=== PATIENT | female | born 1970 | race Caucasian/White ===

== ENCOUNTER 2023-06-26 10:52 | Outpatient (OUT) | payer OTHER, SELFPAY ==
--- NOTE | 2023-06-26 10:56 | MM_ITS ---
Patient: SHARYN BARRY Exam Date: 06/26/2023 : 1970 Gender:F Ordering : DR. ELISABET MARTINEZ . Admission #: [id number] Family : Order #: [id number] CLICK HERE TO VIEW EXAM RADIOLOGY REPORT PROCEDURE: MM TOMOSYNTHESIS SCREENING BI COMPARISON: MG MAMM SCREEN 3D ALFONSO CAD, 08/29/2021. MG MAMM SCREEN ALFONSO W CAD, 08/23/2020. MG MAMM ALFONSO SCRN W CAD DIG, 05/07/2013. MG MAMM SCREEN 3D ALFONSO CAD, 06/20/2022. INDICATIONS: Screening Calculator Name NCI Breast Cancer Risk Assessment Tool 5 Year Breast Cancer Risk 2.50% Lifetime Breast Cancer Risk 17.20% Personal Breast Cancer No Personal Ovarian Cancer No Treatments None Family Cancers Mother with breast cancer at age 74. LOCATION: [facility] BREAST COMPOSITION: Scattered areas fibroglandular density. FINDINGS: DIAGNOSTIC CATEGORY 1--NEGATIVE. RIGHT BREAST: No significant suspicious finding. No significant change has occurred. LEFT BREAST: No significant suspicious finding. No significant change has occurred. RECOMMENDATIONS: ROUTINE MAMMOGRAM AND CLINICAL EVALUATION IN 12 MONTHS. PLEASE NOTE: A NORMAL MAMMOGRAM DOES NOT EXCLUDE THE POSSIBILITY OF BREAST CANCER. A CLINICALLY SUSPICIOUS PALPABLE LUMP SHOULD BE BIOPSIED. Dictated by: Jorge Gee M.D. on 06/27/2023 at 13:42 Approved by: Jorge Gee M.D. on 06/27/2023 at 13:44
== END 2023-06-26 10:53 | disposition home or self-care (01) ==
LOC: MAMMO 10:52
PROVIDERS: PCP Family Medicine; Visit Provider Family Medicine
DX: Z12.31 Encounter for screening mammogram for malignant neoplasm of breast (principal); Z80.3 Family history of malignant neoplasm of breast
CPT/HCPCS: 77063; 77067

== ENCOUNTER 2023-07-19 12:51 | Outpatient (OUT) | payer OTHER, SELFPAY | END 2023-07-19 12:52 | disposition home or self-care (01) | LOC: VC 12:52 | PROVIDERS: PCP Radiology Diagnostic Radiology; Visit Provider Radiology Diagnostic Radiology | DX: I83.813 Varicose veins of bilateral lower extremities with pain (principal) ==

== ENCOUNTER 2023-08-01 12:53 | Outpatient (OUT) | payer OTHER, SELFPAY ==
--- NOTE | 2023-08-01 12:55 | VEIN_ITS ---
Patient Name: SHARYN BARRY MR#: [id number] : 1970 Exam Date: 08/01/2023 Ordering Doctor: DR ELVIS GO M.D. RADIOLOGY REPORT PROCEDURE: [facility] FACILITY EST COMPREHENSIVE VEIN CENTER - OFFICE VISIT INITIAL COMPARISON: None. PROGRESS NOTES: [age] year old female who presents with a 5 year history of bulging dilated veins, leg pain and swelling, cramping. The patient's right leg symptoms are worse than the left. There has been a progression of symptoms over time. This increases with prolonged leg dependency. The patient describes an improvement with rest, elevation, exercise, support stockings. The patient denies any signs and symptoms to suggest arterial ischemia. The patient describes a family history varicose veins on maternal side. The patient has drinking and smoking history of : Occasional alcohol consumption; no tobacco use. Patient has a past medical history significant for hypertension. The patient denies a history of deep venous thrombus or pulmonary embolus. See separate history and physical for medication list. No prior treatment for varicose or spider veins. Current use of compression stockings. After review of nurse notes, history and physical exam I discussed at length the pathophysiology of venous hypertension and possible treatments, therapies and strategies available. We discussed at length the importance of elevating the lower extremities above the level of the heart, increased physical activity and compression stocking use. Ultrasound venous reflux study performed today was discussed at length with the patient. The report demonstrates abnormally dilated and incompetent great saphenous vein bilaterally with prominent branch saphenous varicosities; right greater than left.. PHYSICAL EXAM: The right leg demonstrates several prominent varicosities, a few scattered spider veins, no ulceration, mild edema, no skin discoloration. The left leg demonstrates a few small varicosities, a few scattered spider veins, no ulceration, mild edema, no skin discoloration. Both thighs, legs and feet were symmetrically warm to the touch. Good posterior tibial and dorsalis pedis pulses were present bilaterally. VEIN/[facility] Facility EST Comprehensive IMPRESSION: 1. Right greater than left lower extremity venous insufficiency 2. Right greater than left lower extremity varicose veins 3. Mild bilateral lower extremity subcutaneous edema 4. No flow significant arterial disease 5. CEAP: C3, EC, , AR PLAN: 1. Continued use of compression stockings 2. Elevated legs and increased physical activity symptomatic relief 3. Endovenous laser ablation of right great saphenous vein. 4. Microfoam chemical ablation of right leg dilated branch saphenous varicosities. 5. Lower extremity sclerotherapy. Nurse notes, history and physical were reviewed and confirmed, see attached forms. The nurse was present throughout the physical exam and consultation Dictated by: Jorge Gee M.D. on 08/01/2023 at 14:45 Approved by: Jorge Gee M.D. on 08/01/2023 at 14:48
--- NOTE | 2023-08-01 12:55 | VEIN_ITS ---
Patient Name: SHARYN BARRY MR#: [id number] : 1970 Exam Date: 08/01/2023 Ordering Doctor: DR ELVIS GO M.D. RADIOLOGY REPORT PROCEDURE: VC EXT VENOUS REFLUX ALFONSO LMTD COMPARISON: None. INDICATIONS: I83.813 Painful varicose veins of bilat lower extremities TECHNIQUE: Duplex imaging of the lower extremity to assess the deep and superficial venous system for the presence of deep or superficial venous incompetence and to document the location and severity of disease. The study includes evaluation of the great saphenous vein (GSV), anterior accessory saphenous vein (AASV) and small saphenous vein (SSV). Patient scanned in reverse Trendelenburg and standing. FINDINGS: RIGHT LOWER EXTREMITY: Saphenofemoral Junction Reflux: Yes 7.8mm 2.9 sec GSV: Diam (mm) Reflux/ Time (sec) Proximal Thigh 6.5 Yes 0.9 Mid Thigh 5.3 Yes 2.1 Distal Thigh 4.6 Yes 1.5 Prox Calf 2.7 Yes 0.6 Mid Calf 2.5 Yes 0.4 Saphenopopliteal Junction Reflux: 3.6mm No SSV: Proximal Calf 2.7 No Mid Calf 2.1 No AASV: Proximal Thigh 4.8 Yes 0.5 Mid Thigh Distal Thigh Thrombi: No acute or chronic thrombus visualized Compressibility: Normal Flow: Normal Preforator: Dist/med calf 2.3mm with 1.0s reflux. Mid/med calf 2.9mm with 0s reflux. Tech Note: Incompetent GSV. Patent varicose vein prox/med calf 2.7mm with 0.5s. Patent prox/med calf thigh 4.9mm with 1.0s reflux. LEFT LOWER EXTREMITY: Saphenofemoral Junction Reflux: Yes 6.6 mm 0.9 sec GSV: Diam (mm) Reflux/Time (sec) Proximal Thigh 6.8 Yes 0.8 Mid Thigh 4.5 Yes 0.6 Distal Thigh 2.7 No Prox Calf 3.4 No Mid Calf 2.4 No Saphenopopliteal Junction Relux: 3.0 mm No SSV: Proximal Calf 1.6 Yes 0.4 Mid Calf 2.1 No AASV: Proximal Thigh 4.7 Yes 0.6 Mid Thigh 3.2 Yes 0.5 Distal Thigh Thrombi: No acute or chronic thrombus visualized Compressibility: Normal Flow: Normal [employer]: No patent perforators visualized. Tech Note: Incompetent GSV. Patent varicose vein mid/med calf 3.3mm with 0.8s reflux. Patent varicose vein medial knee 2.3mm with 0.4s reflux. Patent varicose vein 4.5mm with 0.6s reflux. CONCLUSION: 1. Abnormally dilated and incompetent right great saphenous and left great saphenous veins with bilateral dilated incompetent branch saphenous varicosities; right greater than left. Dictated by: Jorge Gee M.D. on 08/01/2023 at 13:55 Approved by: Jorge Gee M.D. on 08/01/2023 at 14:44
== END 2023-08-01 12:54 | disposition home or self-care (01) ==
LOC: VC 12:53
PROVIDERS: PCP Radiology Diagnostic Radiology; Visit Provider Radiology Diagnostic Radiology
DX: I83.813 Varicose veins of bilateral lower extremities with pain (principal)
CPT/HCPCS: 93970; G0463

== ENCOUNTER 2023-08-07 13:49 | Outpatient (OUT) | payer OTHER, SELFPAY ==
--- NOTE | 2023-08-07 13:55 | VEIN_ITS ---
The [address] [address] Patient Name: SHARYN BARRY MRN: [id number] date: 1970 Sex: F Assigned Patient Location: Current Patient Location: Accession/Order Number: [id number] Exam Date: 08/07/2023 14:00 Report Date: 08/07/2023 15:32 At the request of: ELVIS GO Procedure: VC Endovenous Ablation 1VeinRT EXAMINATION: VC Endovenous Ablation 1VeinRT HISTORY: Painful varicose veins of bilat legs I83.813 The risks and benefits of the procedure had been previously discussed, and were rediscussed at length. Informed written consent was obtained. Robert Sanchez RN and Dina Albarado RDMS, RVT assisted. Time out procedure was performed. The right lower extremity was prepared and draped in the usual sterile fashion to allow knee flexion in the sterile field. Duplex ultrasound probe was draped in a sterile cover, sterile transmission gel was used. Venous mapping was performed with the areas of dilation and large tributaries marked. The total length was 36 cm from the entry upper calf to 3 cm below the Saphenofemoral junction. The diameter of the right great saphenous vein ranged from 6.5 mm. A 30 gauge needle and 1% buffered lidocaine was used to anesthetize the entry site. A 4 mm incision was made with a scalpel and the saphenous vein was entered percutaneously under direct ultrasound guidance with a micropuncture set, a single stick was successful in gaining access. A micro-guide wire was inserted and the needle removed. A micro-set including a dilator was inserted over the microwire and the needle and dilator were removed. A guide wire was inserted through the micro-set and guided through the saphenous vein to the saphenofemoral junction. The dilator was removed and an introducer sheath was inserted over the wire until the end of the sheath entered the saphenofemoral junction. The dilator and wire were removed and the 600 micron fiber was introduced and placed and positioned so that it extended beyond the sheath and was 3 cm distal to the saphenofemoral or saphenopopliteal junction. Final position of the fiber was determined by ultrasound guidance and duplex imaging. Tumescent anesthetic was delivered by ultrasound guidance. 175 cc of fluid was delivered along the entire course of the saphenous vein. The solution consisted of 1000 cc of normal saline with 40 mL of 1% lidocaine and 20 mL of sodium bicarbonate. A final positioning check was made. The energy source was turned on by means of the foot pedal and the fiber and sheath were withdrawn. The total number of Joules delivered was 2084. The laser was active for 261 seconds under continuous pulse, average laser use of 8 J. Laser start time 2:45 PM, 08/07/2023. Laser stop time 2:51 PM, 08/07/2023. A duplex ultrasound revealed compressibility and flow at the saphenofemoral junction immediately after the procedure. Hemostasis at the access site was achieved. The skin incision of the saphenous vein was closed with a 4 x 4. A compression stocking was applied. Postop instructions were given. A follow up appointment was recommended and scheduled. The patient tolerated the procedure well. Electronically authenticated by: GEOVANI KRAUS Date: 08/07/2023 15:32
[2023-08-07] MEDS: LIDOCAINE HCL 1% 100 MG/10 ML MDV INJ (15:17)
[2023-08-07] MEDS: 0.9 % SODIUM CHLORIDE 500 ML, LIDOCAINE HCL 20 ML, SODIUM BICARBONATE 10 MEQ INJ (15:18)
== END 2023-08-07 13:50 | disposition home or self-care (01) ==
LOC: VC 13:49
PROVIDERS: PCP Radiology Diagnostic Radiology; Visit Provider Radiology Diagnostic Radiology
DX: I83.813 Varicose veins of bilateral lower extremities with pain (principal)
CPT/HCPCS: 36478

== ENCOUNTER 2023-08-13 09:26 | Outpatient (OUT) | payer OTHER, SELFPAY ==
--- NOTE | 2023-08-13 09:32 | VEIN_ITS ---
Patient Name: SHARYN BARRY MR#: [id number] : 1970 Exam Date: 08/13/2023 Ordering Doctor: DR JEOVANY ELLIS M.D. RADIOLOGY REPORT PROCEDURE: VC EXT VENOUS RT LMTD COMPARISON: None. INDICATIONS: I80.01 Phlebitis of superficial veins of rt lower extremity TECHNIQUE: Lower extremity ross scale and Duplex Doppler evaluation of the deep venous system from the inguinal ligament through the calf veins. FINDINGS: REGION: Right lower extremity. THROMBI: Negative for DVT. Heat induced thrombus visualized 2.3cm from the SFJ. The heat induced thrombus extends from groin to distal thigh. COMPRESSIBILITY: Non-compressible segments corresponding to thrombus FLOW: Areas of absent flow corresponding to thrombus OTHER: CONCLUSION: Post ablation occlusion of the right great saphenous vein with heat induced thrombus 2.3 cm from the saphenofemoral junction. Dictated by: Jeovany Ellis MD on 08/13/2023 at 09:46 Approved by: Jeovany Ellis MD on 08/13/2023 at 09:48
--- NOTE | 2023-08-13 09:32 | VEIN_ITS ---
Patient Name: SHARYN BARRY MR#: [id number] : 1970 Exam Date: 08/13/2023 Ordering Doctor: DR JEOVANY ELLIS M.D. RADIOLOGY REPORT PROCEDURE: VC FACILITY EST LMTD VEIN CENTER - OFFICE VISIT FOLLOW UP COMPARISON: None. PROGRESS NOTES: The patient reports no significant problems following intravenous laser ablation of the right great saphenous vein. The patient did not require oral analgesics. The patient has worn her compression stockings. The patient has followed our recommendations to walk 20-30 minutes once or twice per day since the procedure. Physical exam demonstrates several areas of bruising in the medial right thigh likely related to tumescence injection measuring up to 3 cm in diameter. Thrombosed right great saphenous vein can be palpated. The incision is sealed. No areas of erythema or warmth to suggest cellulitis or thrombophlebitis. No active ulceration Review of the ultrasound performed the same day demonstrates occlusive thrombus extending throughout the treated right great saphenous vein with heat induced thrombus 2.3 cm from the saphenofemoral junction. No deep vein thrombus. The patient expressed a desire to proceed with treatment of right leg incompetent varicose veins. VEIN/[facility] Facility EST LMTD IMPRESSION: 1. Successful ablation of the right great saphenous vein 2. Persistent bilateral incompetent varicose veins. PLAN: Micro foam chemical ablation right leg incompetent varicose veins Nurse notes, history and physical were reviewed and confirmed, see attached forms. The nurse was present throughout the physical exam and consultation Dictated by: Jeovany Ellis MD on 08/13/2023 at 09:58 Approved by: Jeovany Ellis MD on 08/13/2023 at 09:59
== END 2023-08-13 09:27 | disposition home or self-care (01) ==
LOC: VC 09:29
PROVIDERS: PCP Radiology Diagnostic Radiology; Visit Provider Radiology Diagnostic Radiology
DX: I80.01 Phlebitis and thrombophlebitis of superficial vessels of right lower extremity (principal)
CPT/HCPCS: 93971; G0463

== ENCOUNTER 2023-08-21 10:28 | Outpatient (OUT) | payer OTHER, SELFPAY ==
--- NOTE | 2023-08-21 10:32 | VEIN_ITS ---
[address] [address] Patient Name: SHARYN BARRY MRN: [id number] date: 1970 Sex: F Assigned Patient Location: Current Patient Location: Accession/Order Number: [id number] Exam Date: 08/21/2023 10:30 Report Date: 08/21/2023 11:50 At the request of: ELVIS GO Procedure: VC INJ Foam Sclerosant [facility] PROCEDURE: VC INJ Foam Sclerosant [facility] COMPARISON: None. HISTORY: Pain due to varicose veins of bilateral legs I83.813 Pre-operative Diagnosis: CEAP class C3 venous insufficiency with pain, tenderness, edema and incompetent right saphenous and varicose vein(s), chronic venous insufficiency right leg secondary to venous incompetence Post-operative Diagnosis: CEAP class C3 venous insufficiency with pain, tenderness, edema and incompetent right saphenous and varicose vein(s), chronic venous insufficiency right leg secondary to venous incompetence Procedure Performed: 1. Ultrasound-guided microfoam chemical ablation with Varithenaregistered 2. Intraoperative ultrasound guidance Anesthesia: None Indications for Procedure: 52-year-old female who presents with a long history of lower extremity pain and swelling. The patient failed conservative medical therapy including medical compression stockings, exercise and analgesics. Prior procedures include endovenous laser ablation. Multiple incompetent varicosities of the right leg. Duplex scan showed reflux and enlarged diameters up to 5 mm. The patient underwent informed consent including management options where the complications of infection, bleeding, pain, and skin injury were discussed. Particular attention was spent discussing thrombus extension and deep vein thrombosis as well as the possibility of pulmonary embolus and treatment with oral or injectable blood thinners. Procedure: The patient walked to the procedure room. All applicable staff donned appropriate apparel. A procedure timeout was performed to confirm correct patient, correct extremity, correct procedure, and correct room set-up including presence of all applicable supplies, devices, and drugs. A duplex ultrasound, performed by myself confirmed the location and incompetence of branch saphenous varicosities and their course was marked on the skin together with the dilated tributaries. The extent of treatment of the vein and the associated varicosities was determined through ultrasound mapping. The skin was prepped and then punctured with a butterfly needle and advanced under ultrasound guidance. The Varithenaregistered canister was activated and the canister was primed and purged as required in the instructions for use. Varithenaregistered was drawn into a sterile syringe. Following injection were made: 7 cc injected into a 5 mm varicose vein right lateral proximal lower leg Varithenaregistered was slowly administered at 0.5-1.0 cc/second with close observation by ultrasound of its course in the vessels. Total volume utilized was: 7 cc. Following administration of Varithenaregistered the leg was elevated and the patient was asked to repeatedly dorsiflex the ankle to limit flow of Varithenaregistered into perforating veins. Once appropriate spasm had been confirmed in the treated veins, the vascular catheter was removed from the leg and light pressure was applied over the puncture site for hemostasis. The common femoral and deep superficial veins were then evaluated for flow and compressibility prior to dressing placement. The lower extremity was kept elevated at 45 degrees above the horizontal and cording material was applied over the saphenous segments and tributaries to allow for eccentric compression over the target vessels including the targeted saphenous vein(s). A multilayer dressing was applied consisting of foam pads, coban and thigh-high 20-30 mm Hg compression elastic support hose were placed on the patient. The leg was lowered only after compression had been applied and the patient was immediately ambulatory. The patient ambulated 10 minutes under supervision and was without apparent concerns at time of release. Post-care instructions include advising patient to keep post-treatment bandages in place and dry for 48 hours, avoid extended periods of inactivity, avoid heavy exercise for one week, wear compression stockings on the treated leg continuously for two weeks, to walk daily for 10 minutes over the next month. The patient was instructed to take an anti-inflammatory medicine as needed and to follow up for color duplex scan of the Saphenous veins, the treated branch saphenous varicosities, the adjacent deep veins, and additional treatment within 7 days. PERSONNEL: Robert Sanchez RN Electronically authenticated by: ELVIS GO Date: 08/21/2023 11:50
== END 2023-08-21 10:29 | disposition home or self-care (01) ==
LOC: VC 10:29
PROVIDERS: PCP Radiology Diagnostic Radiology; Visit Provider Radiology Diagnostic Radiology
DX: I83.813 Varicose veins of bilateral lower extremities with pain (principal)
CPT/HCPCS: 36466

== ENCOUNTER 2023-08-24 09:54 | Outpatient (OUT) | payer OTHER, SELFPAY ==
--- NOTE | 2023-08-24 09:56 | VEIN_ITS ---
Patient Name: SHARYN BARRY MR#: [id number] : 1970 Exam Date: 08/24/2023 Ordering Doctor: DR ELVIS GO M.D. RADIOLOGY REPORT PROCEDURE: VC EXT VENOUS RT LMTD COMPARISON: VC EXT VENOUS RT LMTD, 08/13/2023. INDICATIONS: Phlebitis of superficial veins of rt lower extremity I80.01 TECHNIQUE: Lower extremity ross scale and Duplex Doppler evaluation of the deep venous system from the inguinal ligament through the calf veins. FINDINGS: REGION: Right lower extremity. THROMBI: Negative for DVT. Varithena induced thrombus visualized at prox/medial calf. COMPRESSIBILITY: Non-compressible segments corresponding to thrombus FLOW: Areas of no flow corresponding to thrombus OTHER: Patent varicose veins remain at prox/ant thigh measuring 6.4mm with 1.5s reflux. CONCLUSION: 1. Successful post ablation occlusion of right leg treated branch saphenous varicosities. Dictated by: Jorge Gee M.D. on 08/24/2023 at 14:05 Approved by: Jorge Gee M.D. on 08/24/2023 at 14:07
--- NOTE | 2023-08-24 09:56 | VEIN_ITS ---
Patient Name: SHARYN BARRY MR#: [id number] : 1970 Exam Date: 08/24/2023 Ordering Doctor: DR ELVIS GO M.D. RADIOLOGY REPORT PROCEDURE: [facility] LMTD VEIN CENTER - OFFICE VISIT FOLLOW UP COMPARISON: [facility], 08/13/2023. PROGRESS NOTES: The patient reports improvement in leg symptoms. There has been interval reduction in varicosities. The patient has followed our recommendations to walk 20-30 minutes once or twice per day since the procedure. Physical exam demonstrates decrease in varicosities of the leg. Persistent varicosities are identified along the right thigh. Review of the ultrasound performed the same day demonstrates occlusive thrombus extending throughout the treated vein(s), see separate report, consistent with a successful ablation. No thrombus extending into or beyond the saphenofemoral junction. The patient expressed a desire to proceed with treatment of remaining dilated and incompetent superficial varicosities. The patient was informed that treatment was a process and would require 1-2 procedures[facility]sessions. [facility]: 1. Successful ablation of the right leg treated branch saphenous vein(s). 2. Persistent right thigh dilated varicose veins and lower extremity symptoms. PLAN: 1. Microfoam chemical ablation of remaining incompetent superficial varicosities of right leg. Nurse notes, history and physical were reviewed and confirmed, see attached forms. The nurse was present throughout the physical exam and consultation Dictated by: Jorge Gee M.D. on 08/24/2023 at 14:07 Approved by: Jorge Gee M.D. on 08/24/2023 at 14:09
== END 2023-08-24 09:55 | disposition home or self-care (01) ==
LOC: VC 09:54
PROVIDERS: PCP Radiology Diagnostic Radiology; Visit Provider Radiology Diagnostic Radiology
DX: I80.01 Phlebitis and thrombophlebitis of superficial vessels of right lower extremity (principal)
CPT/HCPCS: 93971; G0463

== ENCOUNTER 2023-08-29 07:26 | Outpatient (OUT) | payer OTHER, SELFPAY ==
--- NOTE | 2023-08-29 | VEIN_ITS ---
[address] [address] Patient Name: SHARYN BARRY MRN: [id number] date: 1970 Sex: F Assigned Patient Location: Current Patient Location: Accession/Order Number: [id number] Exam Date: 08/29/2023 07:31 Report Date: 08/29/2023 08:20 At the request of: ELVIS GO Procedure: VC INJ Foam Sclerosant WUS ASSEMBLY LINE LEADER PROCEDURE: VC INJ Foam Sclerosant WUS ASSEMBLY LINE LEADER HISTORY: Pain due to varicose veins of bilateral legs I83.813 Pre-operative Diagnosis: CEAP class C3 venous insufficiency with pain, tenderness, edema and incompetent branch saphenous vein(s), chronic venous insufficiency right leg secondary to venous incompetence Post-operative Diagnosis: CEAP class C3 venous insufficiency with pain, tenderness, edema and incompetent branch saphenous vein(s), chronic venous insufficiency right leg secondary to venous incompetence Procedure Performed: 1. Ultrasound-guided microfoam chemical ablation with Varithenaregistered 2. Intraoperative ultrasound guidance Physician: Jorge Gee M.D. Anesthesia: None Indications for Procedure: 52 year old female. Symptoms including lower extremity pain, swelling, dilated bulging veins for many years despite conservative medical therapy including medical compression stockings, exercise and analgesics. Prior procedures include [endovenous laser ablation and microfoam chemical ablation. Multiple incompetent varicosities of the right leg. Duplex scan showed reflux and enlarged diameters up to 4 mm. The patient underwent informed consent including management options where the complications of infection, bleeding, pain, and skin injury were discussed. Particular attention was spent discussing thrombus extension and deep vein thrombosis as well as the possibility of pulmonary embolus and treatment with oral or injectable blood thinners. Procedure: The patient walked to the procedure room. All applicable staff donned appropriate apparel. A procedure timeout was performed to confirm correct patient, correct extremity, correct procedure, and correct room set-up including presence of all applicable supplies, devices, and drugs. A duplex ultrasound, performed by myself confirmed the location and incompetence of branch saphenous varicosities and their course was marked on the skin together with the dilated tributaries. The extent of treatment of the vein and the associated varicosities was determined through ultrasound mapping. The skin was prepped and then punctured with a butterfly needle and advanced under ultrasound guidance. The Varithenaregistered canister was activated and the canister was primed and purged as required in the instructions for use. Varithenaregistered was drawn into a sterile syringe. Varithenaregistered was slowly administered at 0.5-1.0 cc/second with close observation by ultrasound of its course in the vessels. Total volume utilized was: 5 mL into a 4 mm varicosity right mid anterior thigh. Following administration of Varithenaregistered the leg was elevated and the patient was asked to repeatedly dorsiflex the ankle to limit flow of Varithenaregistered into perforating veins. Once appropriate spasm had been confirmed in the treated veins, the vascular catheter was removed from the leg and light pressure was applied over the puncture site for hemostasis. The common femoral and deep superficial veins were then evaluated for flow and compressibility prior to dressing placement. The lower extremity was kept elevated at 45 degrees above the horizontal and cording material was applied over the saphenous segments and tributaries to allow for eccentric compression over the target vessels including the targeted saphenous vein(s). A multilayer dressing was applied consisting of foam pads, coban and thigh-high 20-30 mm Hg compression elastic support hose were placed on the patient. The leg was lowered only after compression had been applied and the patient was immediately ambulatory. The patient ambulated 10 minutes under supervision and was without apparent concerns at time of release. Post-care instructions include advising patient to keep post-treatment bandages in place and dry for 48 hours, avoid extended periods of inactivity, avoid heavy exercise for one week, wear compression stockings on the treated leg continuously for two weeks, to walk daily for 10 minutes over the next month. The patient was instructed to take an anti-inflammatory medicine as needed and to follow up for color duplex scan of the Saphenous veins, the treated branch saphenous varicosities, the adjacent deep veins, and additional treatment within 7 days. PERSONNEL: Robert Sanchez RN Electronically authenticated by: JORGE GEE Date: 08/29/2023 08:20
== END 2023-08-29 07:27 | disposition home or self-care (01) ==
LOC: VC 07:26
PROVIDERS: PCP Radiology Diagnostic Radiology; Visit Provider Radiology Diagnostic Radiology
DX: I83.813 Varicose veins of bilateral lower extremities with pain (principal)
CPT/HCPCS: 36466

== ENCOUNTER 2023-08-30 07:30 | Outpatient (OUT) | payer OTHER, SELFPAY ==
--- NOTE | 2023-08-30 07:33 | VEIN_ITS ---
[address] [address] Patient Name: SHARYN BARRY MRN: [id number] date: 1970 Sex: F Assigned Patient Location: Current Patient Location: Accession/Order Number: [id number] Exam Date: 08/30/2023 07:29 Report Date: 08/30/2023 08:27 At the request of: ELVIS GO Procedure: VC INJ Sclerosing SOLMULT Vein EXAMINATION: VC INJ Sclerosing SOLMULT Vein HISTORY: Pain due to varicose veins of bilateral legs I83.813 The risks and benefits of the procedure were explained at length to the patient and informed written consent was obtained. The procedure was performed under sterile technique. The patient's leg was wrapped with Coban and postprocedural verbal and written instructions provided. Robert Sanchez RN was present and assisted. SCLEROSANT: 2mL 0.5% Polidocanol. VEIN(S) INJECTED: 26 veins in the right leg. VISUALIZATION: Ultrasound was not used to visualize the sclerosant. ANESTHESIA: Supercooled air. COMPLICATIONS: None. Electronically authenticated by: GEOVANI KRAUS Date: 08/30/2023 08:27
--- OUTSIDE RECORDS SUMMARY | 2023-08-30 07:33 | XMS_ITS | CCD ---
Author Name Unknown Address [address] [place] [address] Organization [facility] Care Team Providers Care Colorist Name Role Phone JUDIE MCLAIN Primary Care Physician Tex Argueta PETRONA, DR XIAO Admitting Unavailable KARASIK, DR XIAO Attending Unavailable MCLAIN, DR JUDIE Cobos Primary Care Unavailable KARASIK, DR XIAO Consulting Unavailable NILL, DR RENNER Admitting Unavailable NILL, DR RENNER Attending Unavailable MCLAIN, DR JUDIE Cobos Primary Care Unavailable NILL, DR RENNER Consulting Unavailable REQUEST, DR DOSHI LISTED Admitting Unavaila ble REQUEST, DR DOSHI LISTED Attending Unavaila ble MCLAIN, DR JUDIE Cobos Primary Care Unavailable REQUEST, DR DOSHI LISTED Consulting Unavaila ble NILL, DR RENNER Admitting Unavailable NILL, DR RENNER Attending Unavailable MCLAIN, DR JUDIE Cobos Primary Care Unavailable NILL, DR RENNER Consulting Unavailable GEMBUS, JB Consulting Unavailable MCLAIN, DR JUDIE Cobos Admitting Unavailable MCLAIN, DR JUDIE Cobos Attending Unavailable MCLAIN, DR JUDIE Cobos Primary Care Unavailable KARASIK, DR XIAO Consulting Unavailable ZIEBER, DR JORGE Morerll Consulting Unavailable Rayne, Judie Cobos Primary Care Unavailable Tex Argueta Attending Unavailable Tex Argueta Admitting Unavailable BROOKLYN, Jud Morrell Attending Unavailable MD Manolo Ruiz. Attending Unavailable MD Manolo Ruiz. Attending Unavailable MD Manolo Ruiz. Attending Unavailable MD Manolo Ruiz. Attending Unavailable MD Manolo Ruiz Attending Unavailable Allergies Allergy Classification Reported Allergen(s) Allergy Type Date of Onset Reaction(s) Facility (2 sources) Ciprofloxacin; Translations: [ciprofloxacin] Drug Allergy Itching (finding), Eruption of skin (disorder) [facility] [place] (2 sources) Penicillin; Translations: [penicillin] Drug Allergy Eruption of skin (disorder), Itching (finding) [facility] [place] (2 sources) Sulfonamides (Antibiotic); Translations: [sulfa drugs] Drug allergy Eruption of skin (disorder), Itching (finding) [facility] [place] (1 source) Penicillin G Drug Allergy Unknown [facility] Other (1 source) Sulfacetamide Drug Allergy Unknown [facility] Other (1 source) Ciprofloxacin Drug Allergy 6 [facility] (1 source) Penicillins Drug allergy (disorder) 6 [facility] (1 source) Sulfonamides (Antibiotic) Drug allergy (disorder) 6 [facility] Medications Current Medications Medication Drug Class(es) Dates Sig (Normalized) Sig (Original) 0.5 ML semaglutide 0.5 MG/ML Auto-Injector [Wegovy] (1 source) Start: 07-13-2022 inject 0.5 mL by subcutaneous injection every week Wegovy 0.25 MG/0.5ML 0.5 ml Subcutaneous Weekly for 30 days Jul, Active Apple Cider Vinegar (1 source) Apple Cider Vinegar Active Biotin (1 source) Biotin Active bisoprolol fumarate 2.5 mg / hydroCHLOROthiazide 6.25 mg oral tablet (2 sources) Thiazide Diuretic, beta-Adrenergic Lars Start: 07-07-2022 take 1 tablet by mouth once daily bisoprolol-hydroc hlorothiazide 2.5 mg-6.25 mg Tab 1 tab(s), Oral, Daily, Refill(s) 0 Start Date: 07/07/22 Status: Ordered cholecalciferol 0.05 mg oral tablet (1 source) Vitamin D take 1 tablet by mouth every twenty-four hours Vitamin D 50 MCG (1999 UT) 1 tablet Orally Once a day Active estradiol 1 mg oral tablet (2 sources) Estrogen Start: 07-07-2022 take 1 tablet by mouth once daily estradiol 1 mg oral tablet 1 mg = 1 tab(s), Oral, Daily, Refills(s) 0 Start Date: 07/07/22 Status: Ordered ferrous sulfate 325 mg oral tablet (1 source) take 1 tablet by mouth every twenty-four hours Iron 325 (65 Fe) MG 1 tablet Orally Once a day Active Fish Oils (1 source) take 1 capsule by mouth once daily Fish Oil 1200 MG 1 capsule Orally Once a day Active Multi For Her - (1 source) Multi For Her - as directed Orally Active Vitamin C 500 MG (1 source) take 1 tablet by mouth once daily Vitamin C 500 MG 1 tablet Orally Once a day Active Problems Problem Classification Problem Date Documented Da te Episodic/Chronic Diabetes mellitus without complication (2 sources) Prediabetes; Translations: [Other abnormal glucose] Episodic Digestive congenital anomalies (1 source) Other specified congenital malformations of intestine; Translations: [OTH SPEC CONGEN MALFORM INTESTINE] Onset: 08-31-2022 Chronic Disorders of lipid metabolism (2 sources) Mixed hyperlipidemia; Translations: [Mixed hyperlipidemia] Chronic Essential hypertension (4 sources) Hypertensive disorder; Translations: [Essential (primary) hypertension] Onset: 08-31-2022 07-07-2022 Chronic Immunizations and screening for infectious disease (1 source) Encounter for screening for human papillomavirus (HPV); Translations: [ENC SCREENING HUMAN PAPILLOMAVIRUS] Onset: 06-08-2022 Episodic Other bone disease and musculoskeletal deformities (1 source) Other specified disorders of bone density and structure, unspecified site; Translations: [OT D/O BONE DEN STRUCT UNS SITE] Onset: 06-23-2022 Episodic Other nutritional; endocrine; and metabolic disorders (1 source) Body mass index 30+ - obesity 07-12-2022 Chronic Other nutritional; endocrine; and metabolic disorders (1 source) Obesity; Translations: [Obesity, unspecified] Chronic Other nutritional; endocrine; and metabolic disorders (1 source) Metabolic syndrome X; Translations: [Metabolic syndrome] Chronic Other nutritional; endocrine; and metabolic disorders (1 source) Metabolic syndrome Chronic Other nutritional; endocrine; and metabolic disorders (1 source) Obesity, unspecified Chronic Other nutritional; endocrine; and metabolic disorders (1 source) Abnormal weight gain Episodic Other screening for suspected conditions (not mental disorders or infectious disease) (9 sources) Screening for malignant neoplasm of colon done; Translations: [Encounter for screening for malignant neoplasm of colon] Onset: 06-07-2022 Episodic Residual codes; unclassified (1 source) Acquired absence of both cervix and uterus; Translations: [ACQUIRED ABSENCE BOTH CERVIX AND UTERUS] Onset: 08-31-2022 Episodic Residual codes; unclassified (1 source) Asymptomatic menopausal state; Translations: [ASYMPTOMATIC MENOPAUSAL STATE] Onset: 06-23-2022 Episodic Residual codes; unclassified (1 source) Family history of malignant neoplasm of breast; Translations: [FAMILY HX MALIG NEOPLASM OF BREAST] Onset: 06-23-2022 Episodic Unclassified (1 source) Patient encounter status 07-12-2022 Unclassified (1 source) CONTACT W/AND (SUSP) EXPOS COVID-19; Translations: [CONTACT W/AND (SUSP) EXPOS COVID-19] Onset: 09-01-2022 Unclassified (1 source) Dietary counseling and surveillance; Translations: [Dietary counseling and surveillance] Onset: 07-13-2022 Results Test Name Value Interpretation Reference Range Facil ity Ambulatory Visit Summaryon 1 09-10-2022 Ambulatory Visit Summary FLORINA COLEMANAVELINA Cobos :1970 Visit Date:07/11/2023 Ambulatory Visit Instructions Your Diagnosis Excessive dietary caloric intake BMI 26.0-26.9,adult Overweight Your Care Team Attending Physician - Manolo Ruiz MD Primary Care Physician - Manolo Ruiz MD This Is Your Medications List bisoprolol-hydrochlor othiazide (bisoprolol-hydrochlo rothiazide 2.5 mg-6.25 mg Tab) estradiol (estradiol 1 mg oral tablet) phentermine (Adipex-P 37.5 mg oral capsule) Procedures Performed Vaginal hysterectomy. Discharge Vitals Temperature (Temporal Artery) 36.8 ?C Heart Rate (Peripheral) 72 Respiratory Rate 14 Blood Pressure 120/74 Height 160 cm Height 63 in Weight 68.4 kg Weight 150.48 lb BMI 26.72 What to do next Scheduled Follow-Up Appointments Sunday 1:15 PM EST With: Manolo Ruiz MD Where: [facility] Family Medicine Office/Clini c Noteon 07-11-2023 Family Medicine Office/Clinic Note HPI Staff Aura is a 52 year old female presenting for 2 month follow up weight Adipex 37.5mg for weight loss, tolerating well, no side effects Weight management Sleeping well:Yes, 6-8 hours Chest pain:No Tremors:No Headaches:No Heart fluttering:No Blurred Vision:No Weight last visit: 73.8kg/162lbs Weight this visit: 68.4kg/150.4lbs flu: refused questions/concerns: needs her adippex refilled Physical Exam Vitals & Measurements T: 36.8 ?C(Temporal Artery) HR: 72(Peripheral) RR: 14 BP: 120/74 SpO2: 100% HT: 63 in HT: 160 cm WT: 68.4 kg WT: 150.48 lb BMI: 26.72 General: alert, no acute distress ENMT: oral mucosa moist, Cardiovascular: regular rate and rhythm, normal peripheral perfusion Respiratory: Lungs CTA, respirations non labored Extremities: no deformity, no trauma Neurological: oriented x 4, LOC appropriate for age, CN II-XII intact, motor strength equal & normal bilaterally, speech normal Abdomen: Soft, Nontender, Non-distended, + BS Assessment/Plan 1. Excessive dietary caloric intake (R63.2: Polyphagia) - Will do 3 more month of adipex to get the patient down to a BMI of less than 25 and then we will stop. Will also use it during the holiday to help hold the patient in place. - Monitor at this time. 2. BMI 26.0-26.9,adult (Z68.26: Body mass index [BMI] 26.0-26.9, adult) - BMI education given 3. Overweight (E66.3: Overweight) - Diet and exercise advised. Orders: phentermine, 37.5 mg = 1 cap(s), Oral, Daily, # 30 cap(s), Refills(s) 2, Pharmacy: [facility], 160, cm, 07/11/23 14:21:00 EST, Height/Length Dosing, 68.4, kg, 07/11/23 14:21:00 EST, Weight Dosing 07/11/2023 14:40:13 I certify that I have reviewed the OARRS report and all PDMP information in this chart. Follow-up No qualifying data available Problem List/Past Medical History Ongoing BMI 33.0-33.9,adult Excessive dietary caloric intake Primary hypertension Screening for malignant neoplasm of colon Varicose vein of leg Historical No qualifying data Procedure/Surgical History Vaginal hysterectomy. Medications Adipex-P 37.5 mg oral capsule, 37.5 mg= 1 cap(s), Oral, Daily, 2 refills bisoprolol-hydrochlor othiazide 2.5 mg-6.25 mg Tab, 1 tab(s), Oral, Daily estradiol 1 mg oral tablet, 1 mg= 1 tab(s), Oral, Daily Allergies Cipro (Itching, Rash) penicillin (Rash, Itching) sulfa drugs (Rash, Itching) Social History Alcohol - Denies Alcohol Use, 07/12/2022 Substance Abuse - Denies Substance Abuse, 07/12/2022 Tobacco Never (less than 100 in lifetime) Tobacco Use:. Never Smokeless Tobacco Use:., 07/11/2023 Family History Diabetes mellitus type 2: Father. Heart disease: Mother and Father. Hyperlipidemia: Father. Hypertension: Father. Primary malignant neoplasm of female breast: Mother. Immunizations Vaccine Date Status Comments influenza virus vaccine, inactivated - Not Given Patient Refuses SARS-CoV-2 (COVID-19) mRNA BNT-162b2 vax 09/16/2021 Recorded Normal [facility] Comment on above: Result Comment: Elec tronically Signed By: Joseph ALEXANDER, Manolo Chance\.br\Date and Time Signed: 07/11/23 14:41 EST Outside Mammographyon 2022 Outside Mammography [id number] .00TIFF Normal [facility] Ambulatory Visit Summaryon 0 05-09-2023 Ambulatory Visit Summary GRACY COLEMAN :1970 Visit Date:05/09/2023 Ambulatory Visit Instructions Your Diagnosis Excessive dietary caloric intake Primary hypertension BMI 28.0-28.9,adult Over weight Your Care Team Attending Physician - Manolo Ruiz MD Primary Care Physician - Manolo Ruiz MD This Is Your Medications List phentermine (Adipex-P 37.5 mg oral capsule) Contact prescribing physician if questions or concerns bisoprolol-hydrochlor othiazide (bisoprolol-hydrochlo rothiazide 2.5 mg-6.25 mg Tab) estradiol (estradiol 1 mg oral tablet) Procedures Performed Vaginal hysterectomy. Discharge Vitals Temperature (Oral) 37.0 ?C Heart Rate (Peripheral) 80 Respiratory Rate 14 Blood Pressure 128/80 Height 160 cm Height 63 in Weight 73.8 kg Weight 162.36 lb BMI 28.83 What to do next Scheduled Follow-Up Appointments Sunday 1:20 PM EDT With: Joseph ALEXANDER, Manolo Chance Where: [facility] [address] [place] [address]- \.br\ Medications\.br \ What How Much When Instructions\.b r\ Unchanged phentermine (Adipex-P 37.5 mg oral capsule) 1 Capsules By Mouth Every day Pickup at [facility]\.br\ Unchanged bisoprolol-hydr ochlorothiazide (bisoprolol-hyd rochlorothiazid e 2.5 mg-6.25 mg Tab) 1 Tablets By Mouth Every day Contact prescribing physician if questions or concerns \.br\ Unchanged estradiol (estradiol 1 mg oral tablet) 1 Tablets By Mouth Every day Contact prescribing physician if questions or concerns \.br\ Pharmacy Information\.br \ [facility]: [address], [place] [id number] [phone]\.br\ Allergies\.br\ Cipro (Itching, Rash)\.br\ penicillin (Rash, Itching)\.br\ sulfa drugs (Rash, Itching)\.br\ Problems\.br\ Ongoing - Any problem that you are currently receiving treatment for.\.br\ BMI 33.0-33.9,adult \.br\ Excessive dietary caloric intake\.br\ Primary hypertension\.b r\ Screening for malignant neoplasm of colon\.br\ Varicose vein of leg\.br\ \.br\ [facility] Family Medicine Office/Clini c Noteon 05-09-2023 Family Medicine Office/Clinic Note HPI Staff Aura is a 52 year old female presenting for follow up weight Weight management Started adipex 37.5 qd 04/09/23, tolerating it well Sleeping well:Yes, 6-8 hours Chest pain:No Tremors:No Headaches:No Heart fluttering:No Blurred Vision:No Weight last visit:79.7kg/175.34lb s Weight this visit: 73.8kg/162lbs questions/concerns: none History of Present Illness - Pt lost 13 pounds. - Tracking food. - Exercising - Feels great. Review of Systems PHQ Score Initial Depression Screen Score: 0 Physical Exam Vitals & Measurements T: 37.0 ?C(Oral) HR: 80(Peripheral) RR: 14 BP: 128/80 SpO2: 98% HT: 63 in HT: 160 cm WT: 73.8 kg WT: 162.36 lb BMI: 28.83 General: alert, no acute distress ENMT: oral mucosa moist, Cardiovascular: regular rate and rhythm, normal peripheral perfusion Respiratory: Lungs CTA, respirations non labored Extremities: no deformity, no trauma Neurological: oriented x 4, LOC appropriate for age, CN II-XII intact, motor strength equal & normal bilaterally, speech normal Abdomen: Soft, Nontender, Non-distended, + BS Assessment/Plan 1. Excessive dietary caloric intake (R63.2: Polyphagia) - Continue as before. - Will refill adipex 2. Primary hypertension (I10: Essential (primary) hypertension) - Good BP control - Will monitor on adipex 3. BMI 28.0-28.9,adult (Z68.28: Body mass index [BMI] 28.0-28.9, adult) - BMI education given 4. Over weight (E66.3: Overweight) - As above. Orders: phentermine, 37.5 mg = 1 cap(s), Oral, Daily, # 30 cap(s), Refills(s) 1, Pharmacy: [facility], 160, cm, 05/09/23 16:12:00 EDT, Height/Length Dosing, 73.8, kg, 05/09/23 16:12:00 EDT, Weight Dosing Follow-up No qualifying data available Problem List/Past Medical History Ongoing BMI 33.0-33.9,adult Excessive dietary caloric intake Primary hypertension Screening for malignant neoplasm of colon Varicose vein of leg Historical No qualifying data Procedure/Surgical History Vaginal hysterectomy. Medications Adipex-P 37.5 mg oral capsule, 37.5 mg= 1 cap(s), Oral, Daily, 1 refills bisoprolol-hydrochlor othiazide 2.5 mg-6.25 mg Tab, 1 tab(s), Oral, Daily estradiol 1 mg oral tablet, 1 mg= 1 tab(s), Oral, Daily Allergies Cipro (Itching, Rash) penicillin (Rash, Itching) sulfa drugs (Rash, Itching) Social History Alcohol - Denies Alcohol Use, 07/12/2022 Substance Abuse - Denies Substance Abuse, 07/12/2022 Tobacco Never (less than 100 in lifetime) Tobacco Use:. Never Smokeless Tobacco Use:., 05/09/2023 Family History Diabetes mellitus type 2: Father. Heart disease: Mother and Father. Hyperlipidemia: Father. Hypertension: Father. Primary malignant neoplasm of female breast: Mother. Immunizations Vaccine Date Status SARS-CoV-2 (COVID-19) mRNA BNT-162b2 vax 09/16/2021 Recorded Normal [facility] Comment on above: Result Comment: Elec tronically Signed By: Joseph ALEXANDER, Manolo Chance\.br\Date and Time Signed: 05/09/23 16:36 EDT Family Medicine Office/Clini c Noteon 04-09-2023 Family Medicine Office/Clinic Note Chief Complaint establish care discuss weight, large vein going up her right leg HPI Staff Gracy is a 52 year old female presenting to the office to establish care. Previous Dr. Mclain patient Establish Care: History: Any previous diagnosis: HTN History of seeing any specialist: When was your last doctors visit: 11/16/21 Last provider: Dr Mclain Any recent labs: 11/18/21 Health Maintenance UTD: Colonoscopy: 08/30/22 normal dexa: Aug 2022, osteopenia Mammogram: 2021 normal Pelvic/Pap: 2021 normal covid: (1) Acute: Current issues/complaints: wants to talk about the shingles vaccine discuss her weight has struggled for years and has a big vein going up her right thigh doesn't hurt or bother her but would like your opinion if anything needs done with it History of Present Illness Gracy Coleman is a 52-year-old female who presents today for a follow-up evaluation. The patient's blood pressure is at goal today. She is currently taking a low dose of blood pressure medication. She has a varicose vein on her leg. She denies any pain. She would like to receive the shingles vaccine. She was working out 5 days a week. She got down to 3 days a week. She went from 5 days a week to 3 days a week. She was starting to get lazy and busy. She hurt her knee and was babying it. Her mother was with her for 2 weeks. Her sister is on vacation, so she has not done anything with that. She needs to get back on the kick. She went to a fat doctor at [facility], but at that time it was $ 1500. She likes food, but her is really good. She likes snacks. She likes meat and potatoes. She eats salad. She has never weighed 130 pounds since high school. She has tried all the weight loss stuff. It has been a long time since she has lost 10 pounds. She is forgetful now. She gets hot. She has the early form of osteopenia. She had a bone density test last year. She takes vitamin D, calcium, and iron. Her iron is always low. Review of Systems PHQ Score Initial Depression Screen Score: 0 Physical Exam Vitals & Measurements T: 36.9 ?C(Oral) HR: 74(Peripheral) RR: 14 BP: 126/80 SpO2: 96% HT: 63 in HT: 160 cm WT: 79.7 kg WT: 175.34 lb BMI: 31.13 General: alert, no acute distress Cardiovascular: regular rate and rhythm, normal peripheral perfusion Respiratory: Lungs CTA, respirations non labored Extremities: no deformity, no trauma Neurological: oriented x 4, LOC appropriate for age, CN II-XII intact, motor strength equal & normal bilaterally, speech normal Assessment/Plan 1. Varicose vein of leg (I83.90: Asymptomatic varicose veins of unspecified lower extremity) Discussed that this is more of a cosmetic issue. If there becomes pain or irritation of that area, we may need to send to for further evaluation. Discussed how the vein center in [place] could address this if she would like it addressed and patient at this time is declining to move forward. Patient will let us know if she would like to move forward in the future. 2. Primary hypertension (I10: Essential (primary) hypertension) Patient's blood pressure is at goal today. No other concerns. We will refill her medication. 3. Excessive dietary caloric intake (R63.2: Polyphagia) Discussed diet and exercise. Discussed the use of Adipex and will continue to monitor on a monthly basis. 4. BMI 31.0-31.9,adult (Z68.31: Body mass index [BMI] 31.0-31.9, adult) BMI education given. 5. Class 1 obesity due to excess calories in adult (E66.09: Other obesity due to excess calories) As above. Portions of this record may have been created with voice recognition artificial intelligence software, specifically [employer], [employer] and or [email or web address]. Substitutions may have occurred due to the inherent limitations of voice recognition and artificial intelligence software. Documentation services were performed after patient or guardian consented to allow [employer] to record this visit. ASHTYN government affairs specialist and provider reviewed before signing. ASHTYN: Erin Bah Follow-up No qualifying data available Problem List/Past Medical History Ongoing BMI 33.0-33.9,adult Excessive dietary caloric intake Primary hypertension Screening for malignant neoplasm of colon Varicose vein of leg Historical No qualifying data Procedure/Surgical History Vaginal hysterectomy. Medications Adipex-P 37.5 mg oral capsule, 37.5 mg= 1 cap(s), Oral, Daily bisoprolol-hydrochlor othiazide 2.5 mg-6.25 mg Tab, 1 tab(s), Oral, Daily estradiol 1 mg oral tablet, 1 mg= 1 tab(s), Oral, Daily Allergies Cipro (Itching, Rash) penicillin (Rash, Itching) sulfa drugs (Rash, Itching) Social History Alcohol - Denies Alcohol Use, 07/12/2022 Substance Abuse - Denies Substance Abuse, 07/12/2022 Tobacco Never (less than 100 in lifetime) Tobacco Use:. Never Smokeless Tobacco Use:., 04/03/2023 Family History Diabetes mellitus type 2: Father. (more content not included)... [facility] Comment on above: Result Comment: Elec tronically Signed By: Manolo Ruiz MD\.br\Date and Time Signed: 04/09/23 10:09 EDT\.br\Electronically Co-Signed By: Erin Bah\.br\Date and Time Co-Signed: 04/03/23 18:50 EDT [facility] 04-04-2023 Forms [id number] .00CD:127 [facility] Ambulatory Visit Summaryon 0 04-03-2023 Ambulatory Visit Summary GRACY COLEMAN :1970 Visit Date:04/03/2023 Ambulatory Visit Instructions Your Diagnosis Varicose vein of leg Primary hypertension Excessive dietary caloric intake BMI 31.0-31.9,adult Class 1 obesity due to excess calories in adult Your Care Team Attending Physician - Manolo Ruiz MD Primary Care Physician - Manolo Ruiz MD This Is Your Medications List bisoprolol-hydrochlor othiazide (bisoprolol-hydrochlo rothiazide 2.5 mg-6.25 mg Tab) estradiol (estradiol 1 mg oral tablet) Procedures Performed Vaginal hysterectomy. Discharge Vitals Temperature (Oral) 36.9 ?C Heart Rate (Peripheral) 74 Respiratory Rate 14 Blood Pressure 126/80 Height 160 cm Height 63 in Weight 79.7 kg Weight 175.34 lb BMI 31.13 What to do next Scheduled Follow-Up Appointments Sunday 3:20 PM EDT With: Manolo Ruiz MD Where: [facility] Outside Colonoscopyon 2021 Outside Colonoscopy [id number] .00CD:127 [facility] Reminderson 08-31-2022 Reminders - From: Dominique Styles LPN To: N - Clinical; Sent: 08/31/2022 11:52:28 EST Show up: 07/31/2032 07:00:00 EST Subject: colonoscopy recall Due Date/Time: 08/30/2032 07:00:00 EST Reminder/Recall Patient is due for screening colonoscopy 08/30/2032. Normal [facility] Lab Reportson 08-29-2022 Lab Reports [id number] .00CD:127 Normal [facility] Covid-19 PCR (CVDTBH)on 08-04 SARS-CoV-2 (COVID-19) RNA LUÍS+probe Ql (Unsp spec) Not detected Normal NOT DETECTED [facility] Comment on above: Result Comment: This test is not yet approved or cleared by the [place] FDA. When there are no FDA-approved or cleared tests available, and other criteria are met, FDA can make tests available under an emergency access mechanism called an Emergency Use Authorization (EUA). The EUA for this test is supported by the [place] of Health and Human Service's (HHS's) declaration that circumstances exist to justify the emergency use of in vitro diagnostics for the detection and/or diagnosis of the virus that causes COVID-19. This EUA will remain in effect (meaning this test can be used) for the duration of the COVID-19 declaration justifying emergency of IVDs, unless it is terminated or revoked by FDA (after which the test may no longer be used). When diagnostic testing is negative, the possibility of a false negative should be considered in the context of a patient's recent exposures and the presence of clinical signs and symptoms consistent with SARS-CoV-2. Performed By: #### [facility] #### [facility] [address] [place] [address] Dr. Nitin Danielle A1C HEMOGLOBINon 07-13-2022 HbA1c (Bld) [Mass fraction] 5.9 % [facility] Other HbA1c (Bld) [Mass fraction]o n 07-13-2022 A1C HEMOGLOBIN [employer] [facility] Other MG MAMM SCREEN 3D ALFONSO CADon 06-20-2022 MG MAMM SCREEN 3D ALFONSO CAD Patient: GRACY COLEMAN Exam Date: 06/20/2022 : 1970 Gender:F Ordering : DR DAMEON RUSS . Admission #: [id number] Family : DR JUDIE MCLAIN . Order #: [id number] CLICK HERE TO VIEW EXAM RADIOLOGY REPORT PROCEDURE: MAMMOGRAM SCREENING 3D BILATERAL CAD COMPARISON: MG MAMM SCREEN 3D ALFONSO CAD, 08/29/2021. MG MAMM SCREEN ALFONSO W CAD, 08/23/2020. INDICATIONS: Screening mammography Calculator Name NCI Breast Cancer Risk Assessment Tool 5 Year Breast Cancer Risk 2.40% Lifetime Breast Cancer Risk 17.50% Personal Breast Cancer No Personal Ovarian Cancer No Treatments None Family Cancers Mother with breast cancer at age 74. LOCATION: [facility] BREAST COMPOSITION: Scattered areas fibroglandular density. FINDINGS: DIAGNOSTIC CATEGORY 1--NEGATIVE. RIGHT BREAST: No significant suspicious finding. No significant change has occurred. LEFT BREAST: No significant suspicious finding. No significant change has occurred. RECOMMENDATIONS: ROUTINE MAMMOGRAM AND CLINICAL EVALUATION IN 12 MONTHS. PLEASE NOTE: A NORMAL MAMMOGRAM DOES NOT EXCLUDE THE POSSIBILITY OF BREAST CANCER. A CLINICALLY SUSPICIOUS PALPABLE LUMP SHOULD BE BIOPSIED. Dictated by: Jorge Gee M.D. on 06/20/2022 at 15:55 Approved by: Jorge Gee M.D. on 06/20/2022 at 15:57 Normal [facility] XR DEXA BONE DENSITYon 06-20 XR DEXA BONE DENSITY EXAMINATION: XR DEXA BONE DENSITY, 06/20/2022 10:48 AM EDT HISTORY: Menopause present COMPARISON: None. TECHNIQUE: Dual-energy X-ray absorptiometry (DEXA) bone density study performed for the axial skeleton. FINDINGS: SPINE ANALYSIS: Average bone mineral density is 1.081 g/cm2. T-score (standard deviation relative to young adult mean): -0.8 . HIP ANALYSIS: Lowest bone mineral density is within the right femoral neck, 0.887 g/cm2. T-score (standard deviation relative to young adult mean): -1.1 . IMPRESSION: World [employer] Organization Classification: Osteopenia - Moderate Fracture Risk Electronically authenticated by: JORGE GEE Date: 2022-06-20 19:29 [facility] PAP ACOG PANEL 2: 30 to 65on 06-14-2022 . . Normal [facility] Comment on above: Result Comment: Perf ormed at: BA Performed By: #### [id number] #### [facility] [address] [place] [address] Dr. Nitin Danielle Age Gdln ACOG Testing 30-65 Normal [facility] Comment on above: Performed By: #### [id number] #### [facility] [address] [address] [address] Nitin Danielle DIAGNOSIS: Comment [facility] Comment on above: Result Comment: NEGA TIVE FOR INTRAEPITHELIAL LESION OR MALIGNANCY. Performed at: BA Performed By: #### [id number] #### [facility] [address] [address] [address] Nitin Danielle HPV Aptima Negative Normal Negative [facility] Comment on above: Result Comment: This nucleic acid amplification test detects fourteen high-risk HPV types (16,18,31,33,35,39,45,51,52,56,58,59,66,68) without differentiation. Performed at: =G Performed By: #### [id number] #### [facility] [address] [place] [address] Dr. Nitin Danielle Methodology: Comment Normal [facility] Comment on above: Result Comment: This liquid based ThinPrep(R) pap test was screened with the use of an image guided system. Performed at: WB Performed By: #### [id number] #### [facility] [address] [place] [address] Dr. Nitin Danielle Note: Comment Normal [facility] Comment on above: Result Comment: The Pap smear is a screening test designed to aid in the detection of premalignant and malignant conditions of the uterine cervix. It is not a diagnostic procedure and should not be used as the sole means of detecting cervical cancer. Both false-positive and false-negative reports do occur. . Performed at: WB Performed By: #### [id number] #### [facility] [address] [place] [address] Dr. Nitin Danielle Performed by: Comment Normal [facility] Comment on above: Result Comment: Craig Sellers, Tray Packer (ASCP) Performed at: BA Performed By: #### [id number] #### [facility] [address] [place] [address] Dr. Nitin Danielle Specimen adequacy: Comment Normal [facility] Comment on above: Result Comment: Sati sfactory for evaluation. No endocervical component is identified. Performed at: BA Performed By: #### [id number] #### [facility] [address] [place] [address] Dr. Nitin Danielle CBC AUTO DIFFon 11-18-2021 BASO # 0.0 103/ul Normal 0.0-0.1 [facility] Comment on above: Performed By: #### D ATCBC #### [facility] [address] [address] [address] Nitin Danielle Basophils/100 WBC (Bld) 0.4 % Normal 0.2-2.0 [facility] Comment on above: Performed By: #### D ATCBC #### [facility] [address] [place] [address] Dr. Nitin Danielle EO # 0.1 103/ul Normal 0.0-0.7 [facility] Comment on above: Performed By: #### D ATCBC #### [facility] [address] [place] [address] Dr. Nitin Danielle Eosinophils/100 WBC (Bld) 1.1 % Normal 0.9-7.0 [facility] Comment on above: Performed By: #### D ATCBC #### [facility] [address] [place] [address] Dr. Nitin Danielle Erythrocyte distribution width (RBC) [Ratio] 13.2 % Normal 11.0-15.0 [facility] Comment on above: Performed By: #### D ATCBC #### [facility] [address] [place] [address] Dr. Nitin Danielle Hematocrit (Bld) [Volume fraction] 43.0 % Normal 36.0-48.0 [facility] Comment on above: Performed By: #### D ATCBC #### [facility] [address] [place] [address] Dr. Nitin Danielle Hemoglobin (Bld) [Mass/Vol] 14.5 g/dL Normal 12.0-16.0 [facility] Comment on above: Performed By: #### D ATCBC #### [facility] [address] [place] [address] Dr. Nitin Danielle IG # 0.02 10e3/ul Normal 0.00-0.03 [facility] Comment on above: Performed By: #### D ATCBC #### [facility] [address] [place] [address] Dr. Nitin Danielle IG % 0.3 % Normal 0.0-0.5 [facility] Comment on above: Performed By: #### D ATCBC #### [facility] [address] [place] [address] Dr. Nitin Danielle LYMPH # 2.3 103/ul Normal 1.2-3.8 [facility] Comment on above: Performed By: #### D ATCBC #### [facility] [address] [place] [address] Dr. Nitin Danielle Lymphocytes/100 WBC (Bld) 32.3 % Normal 20.5-60.0 [facility] Comment on above: Performed By: #### D ATCBC #### [facility] [address] [place] [address] Dr. Nitin Danielle MCH (RBC) [Entitic mass] 31.3 pg Normal 26.7-34.0 [facility] Comment on above: Performed By: #### D ATCBC #### [facility] [address] [place] [address] Dr. Nitin Danielle MCHC (RBC) [Mass/Vol] 33.7 g/dL Normal 29.9-35.2 [facility] Comment on above: Performed By: #### D ATCBC #### [facility] [address] [place] [address] Dr. Nitin Danielle MCV (RBC) [Entitic vol] 92.9 fL Normal 81.0-99.0 [facility] Comment on above: Performed By: #### D ATCBC #### [facility] [address] [place] [address] Dr. Nitin Danielle MONO # 0.6 103/ul Normal 0.3-0.8 [facility] Comment on above: Performed By: #### D ATCBC #### [facility] [address] [place] [address] Dr. Nitin Danielle Monocytes/100 WBC (Bld) 7.9 % Normal 1.7-12.0 [facility] Comment on above: Performed By: #### D ATCBC #### [facility] [address] [place] [address] Dr. Nitin Danielle NEUT # 4.1 103/ul Normal 1.4-6.5 [facility] Comment on above: Performed By: #### D ATCBC #### [facility] [address] [address] [address] Nitin Danielle Neutrophils/100 WBC (Bld) 58.0 % Normal 43.0-75.0 [facility] Comment on above: Performed By: #### D ATCBC #### [facility] [address] [address] [address] Nitin Danielle Platelet mean volume (Bld) [Entitic vol] 11.0 fL Normal 9.5-13.5 [facility] Comment on above: Performed By: #### D ATCBC #### [facility] [address] [address] [address] Nitin Danielle PLT 236 103/ul Normal 150-450 [facility] Comment on above: Performed By: #### D ATCBC #### [facility] [address] [place] [address] Dr. Nitin Danielle RBC 4.63 106/ul Normal 4.20-5.40 [facility] Comment on above: Performed By: #### D ATCBC #### [facility] [address] [place] [address] Dr. Nitin Danielle WBC 7.1 103/ul Normal 4.0-11.0 [facility] Comment on above: Performed By: #### D ATCBC #### [facility] [address] [place] [address] Dr. Nitin Danielle RAMIRO- BMP WITH LIPIDon 2021 Anion gap [Moles/Vol] 12.0 mmol/L Normal [facility] Comment on above: Performed By: #### D ATBMP #### [facility] [address] [place] [address] Dr. Nitin Danielle Calcium [Mass/Vol] 8.9 mg/dL Normal 8.5-10.1 [facility] Comment on above: Performed By: #### D ATBMP #### [facility] [address] [place] [address] Dr. Nitin Danielle Chloride [Moles/Vol] 103 mmol/L Normal 98-107 [facility] Comment on above: Performed By: #### D ATBMP #### [facility] [address] [address] [address] Nitin Danielle Cholesterol [Mass/Vol] 257 mg/dL Critically high <=200 [facility] Comment on above: Performed By: #### D ATBMP #### [facility] [address] [address] [address] Nitin Danielle Cholesterol in HDL [Mass/Vol] 44 mg/dL Normal 40-60 [facility] Comment on above: Performed By: #### D ATBMP #### [facility] [address] [address] [address] Nitin Danielle Cholesterol in LDL [Mass/Vol] 153.0 mg/dL Normal [facility] Comment on above: Performed By: #### D ATBMP #### [facility] [address] [address] [address] Nitin Danielle CO2 [Moles/Vol] 29.1 mmol/L Normal 22.0-30.0 [facility] Comment on above: Performed By: #### D ATBMP #### [facility] [address] [address] [address] Nitin Danielle Creatinine [Mass/Vol] 0.66 mg/dL Normal 0.52-1.04 [facility] Comment on above: Performed By: #### D ATBMP #### [facility] [address] [address] [address] Ntiin Danielle EGFR-AF SPANISH >60 Normal >=60 [facility] Comment on above: Performed By: #### D ATBMP #### [facility] [address] [address] [address] Nitin Danielle EGFR-NON AF SPANISH >60 Normal >=60 [facility] Comment on above: Performed By: #### D ATBMP #### [facility] [address] [address] [address] Nitin Danielle Glucose [Mass/Vol] 109 mg/dL Critically high 74-106 [facility] Comment on above: Performed By: #### D ATBMP #### [facility] [address] [address] [address] Nitin Danielle HDL NORMAL > or = 60 mg/dl - LO W CARDIOVASCULAR RISK <40 mg/dl - HIGH CARDIOVASCULAR RISK Normal [facility] Comment on above: Performed By: #### D ATBMP #### [facility] [address] [address] [address] Nitin Danielle LDL CALC NORMAL SEE BELOW Normal [facility] Comment on above: Result Comment: <100 mg/dl OPTIMAL 100 - 129 mg/dl NEAR OR ABOVE OPTIMAL 130 - 159 mg/dl BORDERLINE HIGH 160 - 189 mg/dl HIGH >190 mg/dl VERY HIGH Performed By: #### D ATBMP #### [facility] [address] [address] [address] Nitin Danielle Potassium [Moles/Vol] 4.1 mmol/L Normal 3.4-5.0 [facility] Comment on above: Performed By: #### D ATBMP #### [facility] [address] [address] [address] Nitin Danielle Sodium [Moles/Vol] 140 mmol/L Normal 137-145 [facility] Comment on above: Performed By: #### D ATBMP #### [facility] [address] [address] [address] Nitin Danielle Triglyceride [Mass/Vol] 300 mg/dL Critically high <=150 [facility] Comment on above: Performed By: #### D ATBMP #### [facility] [address] [address] [address] Nitin Danielle Urea nitrogen [Mass/Vol] 14.0 mg/dL Normal 7.0-18.0 [facility] Comment on above: Performed By: #### D ATBMP #### [facility] [address] [address] [address] Nitin Danielle Urea nitrogen/Creatini ne [Mass ratio] 21.2 mg/mg Normal [facility] Comment on above: Performed By: #### D ATBMP #### [facility] [address] [address] [address] Nitin Danielle VLDL CALC 60.0 mg/dL Normal [facility] Comment on above: Performed By: #### D ATBM #### [facility] [address] [address] [address] Nitin Danielle CYTOLOGYon 03-26-2017 CYTOLOGY Specimen #: [id number] Physician: JUDIE GARCIAPECIMEMarni SUBMITTEDA: CERVICAL, SCREENING, FLUID ____FINAL DIAGNOSISA. CERVICAL, SCREENING, FLUIDSatisfactory for interpretation.No endocervical component.Negative for intraepithelial lesion or malignancy.This specimen has been analyzed by the ThinPrep Imaging System, anautMTailored imaging and review system, which assists the laboratory inevaluating cells on ThinPrep Pap tests. Following automated imaging,selected young from every slide are reviewed by a rrt.FAMILIA Blancas(ASCP) (Electronic Signature) ____CLINICAL DATA PAP Source: Cervical-PFCERSMenstr ual History:Post-Menopaus alHYSTERECTOMY: subtotal, 04/18Clinical History:ROUTINESTAINS A: CERVICAL, SCREENING, FLUID THIN PREP Drea Hanks M.D., Laboratory DirectorPatient ID #: [id number] of Report: 03/30/2017Date of Procedure: 03/26/2017Date of Receipt: 03/27/2017Submitted by: JUDIE MCLAINLocation: Diagnostic interpretation performed at [facility], [address] [place] [id number].The Pap Smear is a screening test for cervical cancer. False negativeresults occur with all screening tests, emphasizing the need forrescreening at recommended intervals, and clinical correlation. Normal [facility] Comment on above: Performed By: #### C ####See report for performing lab information. Vital Signs Date Time Vital Sign Value Performing Clinician Facility 07-13-2022 12:00-0500 Body height Tex Valadezdiff Other [facility] Other 07-13-2022 12:00-0500 Body mass index (BMI) [Ratio] 34.6 kg/m2 Tex Valadezdiff Other [facility] Other 07-13-2022 12:00-0500 Body weight 85.82 kg Tex Valadezdiff Other [facility] Other 07-13-2022 12:00-0500 Diastolic blood pressure 79 mm[Hg] Tex Valadezdiff Other [facility] Other 07-13-2022 12:00-0500 Respiratory rate 18 /min Tex Valadezdiff Other [facility] Other 07-13-2022 12:00-0500 SaO2% (BldA) [Mass fraction] 99 % Tex Valadezdiff Other [facility] Other 07-13-2022 12:00-0500 Systolic blood pressure 154 mm[Hg] Tex Argueta Other [facility] Other 07-12-2022 15:48-0500 Blood Pressure Location Jud Michaels [facility] 07-12-2022 15:48-0500 Diastolic blood pressure 88 mm[Hg] Jud Michaels [facility] 07-12-2022 15:48-0500 Heart rate 80 /min Jud Michaels [facility] 07-12-2022 15:48-0500 Respiratory rate 16 /min Jud Michaels [facility] 07-12-2022 15:48-0500 Systolic blood pressure 128 mm[Hg] Jud MONTEIRO [facility] [place] Encounters Encounter Date Encounter Type Care Provider Facility Start: 10-08-2023 ambulatory MD Manolo Ruiz Facil ity:[facility] Start: 07-11-2023 End: 07-12-2023 ambulatory MD Manolo Ruiz Facility:[facility] Start: 05-15-2023 End: 05-16-2023 ambulatory MD Manolo Ruiz Facility:[facility] Start: 05-09-2023 End: 05-10-2023 ambulatory MD Manolo Ruiz Facility:[facility] [facility] Start: 04-03-2023 End: 04-04-2023 ambulatory MD Manolo Ruiz Facility:[facility] Start: 02-02-2023 ambulatory [facility] Start: 09-01-2022 Encounter for preprocedural laboratory examination DR JUD MONTEIRO [facility] Start: 08-30-2022 End: 08-31-[address] JUD MONTEIRO Facility:[facility] Start: 08-28-2022 End: 08-29-[address] JUD MONTEIRO Facility:[facility] Start: 08-28-2022 End: 08-29-2022 Encounter for preprocedural laboratory examination DR JUD MONTEIRO Facility:[facility] Start: 07-13-2022 End: 07-14-2022 ambulatory Judie Mclain [place] [facility] MD Other Start: 07-13-2022 Nutrition therapy Tex Argueta [facility] Start: 07-12-2022 End: 07-12-2022 Patient encounter procedure [facility] Start: 06-20-2022 End: 06-21-[address] JUDIE MCLAIN Facility:[facility] Start: 06-07-2022 End: 06-07-[address] DAMEON RUSS Facility:[facility] Start: 11-18-2021 End: 11-19-[address] NONE LISTED REQUEST Facility:[facility] Procedures Date Procedure Procedure Detail Performing Clinician Vaginal hysterectomy Jud MILLANJerman Payers Date Payer Category Payer Self-pay 1970 Unknown [id number] 2.16.84 [id number] 1970 Unknown [id number] 2.16.84 [id number] 1970 Unknown [id number] 2.16.84 [id number] 1970 Unknown [id number] 2.16.84 [id number] 1970 Unknown [id number] 2.16.8 [id number] 1970 Unknown [id number] 2.16.8 [id number] 1970 Unknown [id number] 2.16.8 [id number] 1970 Unknown [id number] 2.16.8 [id number] 1970 Unknown [id number] 2.16.8 [id number] 1970 Unknown [id number] 2.16.8 [id number] 1961 Self-pay [id number] 1961 Unknown [id number] 2. [id number] Unknown [id number] 2.16.84 [id number] Unknown [id number] 2.16.8 [id number] Social History Date Type Detail Facility Start: 07-12-2022 Tobacco smoking status Never s moked tobacco (finding) [facility] Tobacco smoking status Never Gener [facility] [place] Sex Assigned At Female [facility] Start: 1970 Sex Assigned At Female [facility] Functional Status Date Assessment Result Facility 07-12-2022 Functional Status N/A General Mejía [facility] [place] Clinical Note 08-30-2022 Note Date & Type Note Facility 08-30-2022 Note OPERATIVE NOTE OPERATION DATE: 08/30/2022 PREOPERATIVE DIAGNOSIS: Colorectal screening. POSTOPERATIVE DIAGNOSIS: Redundant colon. PROCEDURE: Colonoscopy to cecum. SURGEON: Jud Monteiro M.D. ANESTHESIA: Monitored anesthesia care. ESTIMATED BLOOD LOSS: Zero. INDICATIONS AND CONSENT: Patient is a 51-year-old female who presents for colorectal screening. Indications, risks, benefits, alternatives of proceeding with colonoscopy were explained extensively to the patient, including the risks of bleeding, colon perforation or anesthetic complications. All of her questions were answered. Informed consent was obtained. PROCEDURE: Patient brought to the operating room, placed in the left lateral decubitus position. Monitored anesthesia care was provided. Rectal exam was performed which showed no masses or blood. The scope was inserted into the anal canal. Under direct visualization was advanced. Within the distal sigmoid, there were noted to be sharp bends that the regular scope could not navigate; therefore, we switched to the pediatric scope. We were then able to navigate the multiple bends, as well as with the aid of abdominal compression. The scope was advanced to the cecum where cecal markings were clearly identified. There was noted to be a good prep. Upon withdrawal of the scope, mucosal surfaces were carefully examined. There were no mass lesions or polyps. No inflammatory changes or ulcerations. No significant diverticulosis. There was redundancy and spasm of the colon. The scope was retroflexed in the anal canal. There was no significant hemorrhoidal disease. Scope was then withdrawn. Patient tolerated procedure well, was sent to recovery room in good condition. Follow up screening colonoscopy should be in 10 years. CC: Patient's family physician. [facility] Evaluation note 07-13-2022 Note Date & Type Note Facility 07-13-2022 Evaluation note Encounter Date Diagnosis Assessment Notes Jul, Prediabetes (ICD-10 - R73.09) Jul, Abnormal weight gain (ICD-10 - R63.5) Jul, Hypertension (ICD-10 - I10) Jul, Mixed hyperlipidemia (ICD-10 - E78.2) Jul, Metabolic syndrome X (ICD-10 - E88.81) Jul, Obesity (BMI 30.0-34.9) (ICD-10 - E66.9) [facility] Other Evaluation + Plan note Note Date & Type Note Facility Evaluation + Plan note No data available for this section [facility] [place] Evaluation note Note Date & Type Note Facility Evaluation note No assessment information availa [facility] Work Phone: History general Narrative - Reported Note Date & Type Note Facility History general Narrative - Reported Type Medical History HTN Medical History Hysterectomy Surgical History hysterectomy 2017 Hospitalization History see above [facility] Other Hospital Discharge instructions Note Date & Type Note Facility Hospital Discharge instructions No data available for this section [facility] [place] Progress note Note Date & Type Note Facility Progress note No data available for this section [facility] Summary Purpose Family History No Family History Records FoundNo Family History Records FoundNo Family History Records FoundNo Family History Records Found Advance Directives No Advanced Directives Records FoundNo Advanced Directives Records FoundNo Advanced Directives Records FoundNo Advanced Directives Records Found Additional Source Comments INFORMATION SOURCE (unrecogn ized section and content) DATE CREATED AUTHOR 02/27/2018 [facility] DATE CREATED AUTHOR AUTHOR'S ORGANIZ ATION 09/01/2022 [facility] DATE CREATED AUTHOR AUTHOR'S ORGANIZ ATION 01/10/2023 [facility] DATE CREATED AUTHOR AUTHOR'S ORGANIZ ATION 07/13/2023 [facility] Patient Care team informatio n (unrecognized section and content) Personnel Name: JUDIE MCLAIN MD Address: Address: [address] [place] [address] [place] [address] REASON FOR VISIT (unrecogniz ed section and content) initial WMN Goals (unrecognized section and content) Goals may be documented in a n alternate section FOR RECORDS PERTAINING TO PATIENTS WHO ARE OR HAVE BEEN ENROLLED IN A CHEMICAL DEPENDENCY/SUBSTANCEABUSE PROGRAM, SOME INFORMATION MAY BE OMITTED. This clinical summary was aggregated from multiple sources. Caution should be exercised in using it in the provision of clinical care. This summary normalizes information from multiple sources, and as a consequence, information in this document may materially change the coding, format and clinical context of patient data. In addition, data may be omitted in some cases. CLINICAL DECISIONS SHOULD BE BASED ON THE PRIMARY CLINICAL RECORDS. [facility] provides no warranty or guarantee of the accuracy or completeness of information in this document.
== END 2023-08-30 07:31 | disposition home or self-care (01) ==
LOC: VC 07:30
PROVIDERS: PCP Radiology Diagnostic Radiology; Visit Provider Radiology Diagnostic Radiology
DX: I83.813 Varicose veins of bilateral lower extremities with pain (principal)
CPT/HCPCS: 36471

== ENCOUNTER 2023-08-31 07:25 | Outpatient (OUT) | payer OTHER, SELFPAY ==
--- OUTSIDE RECORDS SUMMARY | 2023-08-31 07:28 | XMS_ITS | CCD ---
Author Name Unknown Address [address] [place] [address] Organization [facility] Care Team Providers Care Lube Man Name Role Phone JUDIE MCLAIN Primary Care [...] DR XIAO Consulting Unavailable ZIEBER, DR JORGE Morrell Consulting Unavailable Rayne, Judie Cobos Primary Care [...] (finding), Eruption of skin (disorder) [facility] [place] (2 sources) Penicillin; Translations: [penicillin] Drug Allergy Eruption of skin (disorder), Itching (finding) [facility] [place] (2 sources) Sulfonamides (Antibiotic); Translations: [sulfa drugs] Drug allergy Eruption of skin (disorder), Itching (finding) [facility] [place] (1 source) Penicillin G Drug Allergy Unknown [facility] Other (1 source) Sulfacetamide Drug Allergy Unknown [facility] Other (1 source) Ciprofloxacin Drug Allergy 6 [facility] (1 source) Penicillins Drug allergy (disorder) 6 [facility] (1 source) Sulfonamides (Antibiotic) Drug allergy (disorder) 6 [facility] Medications Current Medications Medication Drug [...] PM EST With: Manolo Ruiz MD Where: [facility] Family Medicine Office/Clini c Noteon 07-11-2023 Family [...] (COVID-19) mRNA BNT-162b2 vax 09/16/2021 Recorded Normal [facility] Comment on above: Result Comment: Elec tronically Signed By: Joseph ALEXANDER, Manolo Chance\.br\Date and Time Signed: 07/11/23 14:41 EST Outside Mammographyon 2022 Outside Mammography [id number] Normal [facility] Ambulatory Visit Summaryon 0 05-09-2023 Ambulatory [...] EDT With: Joseph ALEXANDER, Manolo Chance Where: [facility] Normal [address] [place] [address]- \.br\ Medications\.br \ What How Much When [...] Information\.br \ [facility]: [address], [place] [id number] [phone]\.br\ Allergies\.br\ Cipro (Itching, Rash)\.br\ penicillin (Rash, Itching)\.br\ sulfa drugs (Rash, Itching)\.br\ Problems\.br\ Ongoing - Any problem that you are currently receiving treatment for.\.br\ BMI 33.0-33.9,adult \.br\ Excessive dietary caloric intake\.br\ Primary hypertension\.b r\ Screening for malignant neoplasm of colon\.br\ Varicose vein of leg\.br\ \.br\ [facility] Family Medicine Office/Clini c Noteon 05-09-2023 [...] (COVID-19) mRNA BNT-162b2 vax 09/16/2021 Recorded Normal [facility] Comment on above: Result Comment: Elec [...] She went to a fat doctor at [facility], but at that time it was $ [...] evaluation. Discussed how the vein center in [place] could address this if she would like [...] with voice recognition artificial intelligence software, specifically Astro Ape, Amplimmune and or Agenda. Substitutions may have occurred due to the inherent limitations of voice recognition and artificial intelligence software. Documentation services were performed after patient or guardian consented to allow [employer] to record this visit. ASHTYN claim specialist and provider reviewed before signing. ASHTYN: [...] type 2: Father. (more content not included)... [facility] Comment on above: Result Comment: Elec tronically Signed By: Manolo Ruiz MD\.br\Date and Time Signed: 04/09/23 10:09 EDT\.br\Electronically Co-Signed By: Erin Bah\.br\Date and Time Co-Signed: 04/03/23 18:50 EDT [facility] 04-04-2023 Forms [id number] .00CD:127 [facility] Ambulatory Visit Summaryon 0 04-03-2023 Ambulatory Visit [...] PM EDT With: Manolo Ruiz MD Where: [facility] Outside Colonoscopyon 2021 Outside Colonoscopy [id number] .00CD:127 [facility] Reminderson 08-31-2022 Reminders - From: Dominique Styles LPN To: N - Clinical; Sent: 08/31/2022 11:52:28 EST Show up: 07/31/2032 07:00:00 EST Subject: colonoscopy recall Due Date/Time: 08/30/2032 07:00:00 EST Reminder/Recall Patient is due for screening colonoscopy 08/30/2032. Normal [facility] Lab Reportson 08-29-2022 Lab Reports [id number] .00CD:127 Normal [facility] Covid-19 PCR (CVDTBH)on 08-04 SARS-CoV-2 (COVID-19) RNA LUÍS+probe Ql (Unsp spec) Not detected Normal NOT DETECTED [facility] Comment on above: Result Comment: This test is not yet approved or cleared by the [place] FDA. When there are no FDA-approved or cleared tests available, and other criteria are met, FDA can make tests available under an emergency access mechanism called an Emergency Use Authorization (EUA). The EUA for this test is supported by the [place] of Health and Human Service's (HHS's) declaration [...] consistent with SARS-CoV-2. Performed By: #### C [facility] #### [facility] [address] [place] [address] Dr. Nitin Danielle A1C HEMOGLOBINon 07-13-2022 HbA1c (Bld) [Mass fraction] 5.9 % [facility] Other HbA1c (Bld) [Mass fraction]o n 07-13-2022 A1C HEMOGLOBIN [employer] [facility] [employer] [facility] Other MG MAMM SCREEN 3D ALFONSO CADon 06-20-2022 MG MAMM SCREEN 3D ALFONSO CAD Patient: GRACY COLEMAN Exam Date: 06/20/2022 : 1970 Gender:F Ordering : DR DAMEON RUSS . Admission #: [id number] Family : DR JUDIE MCLAIN . Order #: [id number] CLICK HERE TO VIEW EXAM RADIOLOGY REPORT [...] breast cancer at age 72. LOCATION: [facility] BREAST COMPOSITION: Scattered areas fibroglandular density. [...] Gee M.D. on 06/20/2022 at 15:57 Normal [facility] XR DEXA BONE DENSITYon 06-20 XR [...] authenticated by: JORGE GEE Date: 2022-06-20 19:29 [facility] PAP ACOG PANEL 2: 30 to 65on 06-14-2022 . . Normal [facility] Comment on above: Result Comment: Perf ormed at: BA Performed By: #### [id number] #### [facility] [address] [place] [address] Dr. Nitin Danielle Age Gdln ACOG Testing 30-65 Normal [facility] Comment on above: Performed By: #### [id number] #### [facility] [address] [address] [address] Nitin Danielle DIAGNOSIS: Comment [facility] Comment on above: Result Comment: NEGA TIVE FOR INTRAEPITHELIAL LESION OR MALIGNANCY. Performed at: BA Performed By: #### [id number] #### [facility] [address] [address] [address] Nitin Danielle HPV Aptima Negative Normal Negative [facility] Comment on above: Result Comment: This nucleic acid amplification test detects fourteen high-risk HPV types (16,18,31,33,35,39,45,51,52,56,58,59,66,68) without differentiation. Performed at: =G Performed By: #### [id number] #### [facility] [address] [place] [address] Dr. Nitin Danielle Methodology: Comment Normal [facility] Comment on above: Result Comment: This liquid based ThinPrep(R) pap test was screened with the use of an image guided system. Performed at: WB Performed By: #### [id number] #### [facility] [address] [place] [address] Dr. Nitin Danielle Note: Comment Normal [facility] Comment on above: Result Comment: The Pap smear is a screening test designed to aid in the detection of premalignant and malignant conditions of the uterine cervix. It is not a diagnostic procedure and should not be used as the sole means of detecting cervical cancer. Both false-positive and false-negative reports do occur. . Performed at: WB Performed By: #### [id number] #### [facility] [address] [place] [address] Dr. Nitin Danielle Performed by: Comment Normal [facility] Comment on above: Result Comment: Craig Sellers, Belt Loop Maker (ASCP) Performed at: BA Performed By: #### [id number] #### [facility] [address] [place] [address] Dr. Nitin Danielle Specimen adequacy: Comment Normal [facility] Comment on above: Result Comment: Sati sfactory for evaluation. No endocervical component is identified. Performed at: BA Performed By: #### [id number] #### [facility] [address] [place] [address] Dr. Nitin Danielle CBC AUTO DIFFon 11-18-2021 BASO # 0.0 103/ul Normal 0.0-0.1 [facility] Comment on above: Performed By: #### D ATCBC #### [facility] [address] [address] [address] Nitin Danielle Basophils/100 WBC (Bld) 0.4 % Normal 0.2-2.0 [facility] Comment on above: Performed By: #### D ATCBC #### [facility] [address] [place] [address] Dr. Nitin Danielle EO # 0.1 103/ul Normal 0.0-0.7 [facility] Comment on above: Performed By: #### D ATCBC #### [facility] [address] [place] [address] Dr. Nitin Danielle Eosinophils/100 WBC (Bld) 1.1 % Normal 0.9-7.0 [facility] Comment on above: Performed By: #### D ATCBC #### [facility] [address] [place] [address] Dr. Nitin Danielle Erythrocyte distribution width (RBC) [Ratio] 13.2 % Normal 11.0-15.0 [facility] Comment on above: Performed By: #### D ATCBC #### [facility] [address] [place] [address] Dr. Nitin Danielle Hematocrit (Bld) [Volume fraction] 43.0 % Normal 36.0-48.0 [facility] Comment on above: Performed By: #### D ATCBC #### [facility] [address] [place] [address] Dr. Nitin Danielle Hemoglobin (Bld) [Mass/Vol] 14.5 g/dL Normal 12.0-16.0 [facility] Comment on above: Performed By: #### D ATCBC #### [facility] [address] [place] [address] Dr. Nitin Danielle IG # 0.02 10e3/ul Normal 0.00-0.03 [facility] Comment on above: Performed By: #### D ATCBC #### [facility] [address] [place] [address] Dr. Nitin Danielle IG % 0.3 % Normal 0.0-0.5 [facility] Comment on above: Performed By: #### D ATCBC #### [facility] [address] [place] [address] Dr. Nitin Danielle LYMPH # 2.3 103/ul Normal 1.2-3.8 [facility] Comment on above: Performed By: #### D ATCBC #### [facility] [address] [place] [address] Dr. Nitin Danielle Lymphocytes/100 WBC (Bld) 32.3 % Normal 20.5-60.0 [facility] Comment on above: Performed By: #### D ATCBC #### [facility] [address] [place] [address] Dr. Nitin Danielle MCH (RBC) [Entitic mass] 31.3 pg Normal 26.7-34.0 [facility] Comment on above: Performed By: #### D ATCBC #### [facility] [address] [place] [address] Dr. Nitin Danielle MCHC (RBC) [Mass/Vol] 33.7 g/dL Normal 29.9-35.2 [facility] Comment on above: Performed By: #### D ATCBC #### [facility] [address] [place] [address] Dr. Nitin Danielle MCV (RBC) [Entitic vol] 92.9 fL Normal 81.0-99.0 [facility] Comment on above: Performed By: #### D ATCBC #### [facility] [address] [place] [address] Dr. Nitin Danielle MONO # 0.6 103/ul Normal 0.3-0.8 [facility] Comment on above: Performed By: #### D ATCBC #### [facility] [address] [place] [address] Dr. Nitin Danielle Monocytes/100 WBC (Bld) 7.9 % Normal 1.7-12.0 [facility] Comment on above: Performed By: #### D ATCBC #### [facility] [address] [place] [address] Dr. Nitin Danielle NEUT # 4.1 103/ul Normal 1.4-6.5 [facility] Comment on above: Performed By: #### D ATCBC #### [facility] [address] [address] [address] Nitin Danielle Neutrophils/100 WBC (Bld) 58.0 % Normal 43.0-75.0 [facility] Comment on above: Performed By: #### D ATCBC #### [facility] [address] [address] [address] Nitin Danielle Platelet mean volume (Bld) [Entitic vol] 11.0 fL Normal 9.5-13.5 [facility] Comment on above: Performed By: #### D ATCBC #### [facility] [address] [address] [address] Nitin Danielle PLT 236 103/ul Normal 150-450 [facility] Comment on above: Performed By: #### D ATCBC #### [facility] [address] [place] [address] Dr. Nitin Danielle RBC 4.63 106/ul Normal 4.20-5.40 [facility] Comment on above: Performed By: #### D ATCBC #### [facility] [address] [place] [address] Dr. Nitin Danielle WBC 7.1 103/ul Normal 4.0-11.0 [facility] Comment on above: Performed By: #### D ATCBC #### [facility] [address] [place] [address] Dr. Nitin Danielle RAMIRO- BMP WITH LIPIDon 2021 Anion gap [Moles/Vol] 12.0 mmol/L Normal [facility] Comment on above: Performed By: #### D ATBMP #### [facility] [address] [place] [address] Dr. Nitin Danielle Calcium [Mass/Vol] 8.9 mg/dL Normal 8.5-10.1 [facility] Comment on above: Performed By: #### D ATBMP #### [facility] [address] [place] [address] Dr. Nitin Danielle Chloride [Moles/Vol] 103 mmol/L Normal 98-107 [facility] Comment on above: Performed By: #### D ATBMP #### [facility] [address] [address] [address] Nitin Danielle Cholesterol [Mass/Vol] 257 mg/dL Critically high <=200 [facility] Comment on above: Performed By: #### D ATBMP #### [facility] [address] [address] [address] Nitin Danielle Cholesterol in HDL [Mass/Vol] 44 mg/dL Normal 40-60 [facility] Comment on above: Performed By: #### D ATBMP #### [facility] [address] [address] [address] Nitin Danielle Cholesterol in LDL [Mass/Vol] 153.0 mg/dL Normal [facility] Comment on above: Performed By: #### D ATBMP #### [facility] [address] [address] [address] Nitin Danielle CO2 [Moles/Vol] 29.1 mmol/L Normal 22.0-30.0 [facility] Comment on above: Performed By: #### D ATBMP #### [facility] [address] [address] [address] Nitin Danielle Creatinine [Mass/Vol] 0.66 mg/dL Normal 0.52-1.04 [facility] Comment on above: Performed By: #### D ATBMP #### [facility] [address] [address] [address] Nitin Danielle EGFR-AF PAKISTANI >60 Normal >=60 [facility] Comment on above: Performed By: #### D ATBMP #### [facility] [address] [address] [address] Nitin Danielle EGFR-NON AF PAKISTANI >60 Normal >=60 [facility] Comment on above: Performed By: #### D ATBMP #### [facility] [address] [address] [address] Nitin Danielle Glucose [Mass/Vol] 109 mg/dL Critically high 74-106 [facility] Comment on above: Performed By: #### D ATBMP #### [facility] [address] [address] [address] Nitin Danielle HDL NORMAL > or = 60 mg/dl - LO W CARDIOVASCULAR RISK <40 mg/dl - HIGH CARDIOVASCULAR RISK Normal [facility] Comment on above: Performed By: #### D ATBMP #### [facility] [address] [address] [address] Nitin Danielle LDL CALC NORMAL SEE BELOW Normal [facility] Comment on above: Result Comment: <100 mg/dl OPTIMAL 100 - 129 mg/dl NEAR OR ABOVE OPTIMAL 130 - 159 mg/dl BORDERLINE HIGH 160 - 189 mg/dl HIGH >190 mg/dl VERY HIGH Performed By: #### D ATBMP #### [facility] [address] [address] [address] Nitin Danielle Potassium [Moles/Vol] 4.1 mmol/L Normal 3.4-5.0 [facility] Comment on above: Performed By: #### D ATBMP #### [facility] [address] [address] [address] Nitin Danielle Sodium [Moles/Vol] 140 mmol/L Normal 137-145 [facility] Comment on above: Performed By: #### D ATBMP #### [facility] [address] [address] [address] Nitin Danielle Triglyceride [Mass/Vol] 300 mg/dL Critically high <=150 [facility] Comment on above: Performed By: #### D ATBMP #### [facility] [address] [address] [address] Nitin Danielle Urea nitrogen [Mass/Vol] 14.0 mg/dL Normal 7.0-18.0 [facility] Comment on above: Performed By: #### D ATBMP #### [facility] [address] [address] [address] Nitin Danielle Urea nitrogen/Creatini ne [Mass ratio] 21.2 mg/mg Normal [facility] Comment on above: Performed By: #### D ATBMP #### [facility] [address] [address] [address] Nitin Danielle VLDL CALC 60.0 mg/dL Normal [facility] Comment on above: Performed By: #### D ATBM #### [facility] [address] [address] [address] Nitin Danielle CYTOLOGYon 03-26-2017 CYTOLOGY Specimen #: [id number] Physician: JUDIE GARCIAPECIMEMarni SUBMITTEDA: CERVICAL, SCREENING, FLUID ____FINAL DIAGNOSISA. CERVICAL, SCREENING, FLUIDSatisfactory for interpretation.No endocervical component.Negative for intraepithelial lesion or malignancy.This specimen has been analyzed by the ThinPrep Imaging System, anautVoovio aka 3Ditizeed imaging and review system, which assists the laboratory inevaluating cells on ThinPrep Pap tests. Following automated imaging,selected young from every slide are reviewed by a rig site engineer.FAMILIA Blancas(ASCP) (Electronic Signature) ____CLINICAL DATA PAP Source: Cervical-PFCERSMenstr ual History:Post-Menopaus alHYSTERECTOMY: subtotal, 04/18Clinical History:ROUTINESTAINS A: CERVICAL, SCREENING, FLUID THIN PREP Drea Hanks M.D., Laboratory DirectorPatient ID #: [id number] of Report: 03/30/2017Date of Procedure: 03/26/2017Date of Receipt: 03/27/2017Submitted by: JUDIE MCLAINLocation: Diagnostic interpretation performed at [facility], [address] [place] [id number].The Pap Smear is a screening test for cervical cancer. False negativeresults occur with all screening tests, emphasizing the need forrescreening at recommended intervals, and clinical correlation. Normal [facility] Comment on above: Performed By: #### C ####See report for performing lab information. Vital Signs Date Time Vital Sign Value Performing Clinician Facility 07-13-2022 12:00-0500 Body height [facility] Other [facility] Other 07-13-2022 12:00-0500 Body mass index (BMI) [Ratio] 34.6 kg/m2 [facility] Other [facility] Other 07-13-2022 12:00-0500 Body weight 85.82 kg [facility] Other [facility] Other 07-13-2022 12:00-0500 Diastolic blood pressure 79 mm[Hg] [facility] Other [facility] Other 07-13-2022 12:00-0500 Respiratory rate 18 /min [facility] Other [facility] Other 07-13-2022 12:00-0500 SaO2% (BldA) [Mass fraction] 99 % [facility] Other [facility] Other 07-13-2022 12:00-0500 Systolic blood pressure 154 mm[Hg] Tex Argueta Other [facility] Other 07-12-2022 15:48-0500 Blood Pressure Location Jud Michaels [facility] 07-12-2022 15:48-0500 Diastolic blood pressure 88 mm[Hg] Jud Michaels [facility] 07-12-2022 15:48-0500 Heart rate 80 /min Jud Michaels [facility] 07-12-2022 15:48-0500 Respiratory rate 16 /min Jud Michaels [facility] 07-12-2022 15:48-0500 Systolic blood pressure 128 mm[Hg] Jud MONTEIRO [facility] [place] Encounters Encounter Date Encounter Type Care Provider Facility Start: 10-08-2023 ambulatory MD Manolo Ruiz Facil ity:[facility] Start: 07-11-2023 End: 07-12-2023 ambulatory MD Manolo Ruiz [facility] Start: 05-15-2023 End: 05-16-2023 ambulatory MD Manolo Ruiz Facility:[facility] Start: 05-09-2023 End: 05-10-2023 ambulatory MD Manolo Ruiz Facility:[facility] Start: 04-03-2023 End: 04-04-2023 ambulatory MD Manolo Ruiz Facility:[facility] Start: 02-02-2023 ambulatory [facility] Start: 09-01-2022 Encounter for preprocedural laboratory examination DR JUD MONTEIRO [facility] Start: 08-30-2022 End: 08-31-[address] JUD MONTEIRO Facility:[facility] Start: 08-28-2022 End: 08-29-[address] JUD MONTEIRO Facility:[facility] Start: 08-28-2022 End: 08-29-2022 Encounter for preprocedural laboratory examination DR JUD MONTEIRO Facility:[facility] Start: 07-13-2022 End: 07-14-2022 ambulatory Judie Mclain [facility] Other Start: 07-13-2022 Nutrition therapy Tex Argueta [facility] Start: 07-12-2022 End: 07-12-2022 Patient encounter procedure [facility] Start: 06-20-2022 End: 06-21-[address] JUDIE MCLAIN Facility:[facility] Start: 06-07-2022 End: 06-07-[address] DAMEON RUSS Facility:[facility] Start: 11-18-2021 End: 11-19-[address] NONE LISTED REQUEST Facility:[facility] Procedures Date Procedure Procedure Detail Performing Clinician Vaginal hysterectomy Jud MILLANJerman Payers Date Payer Category Payer Self-pay 1970 Unknown [id number] 2.16.84 [id number] 1970 Unknown [id number] 2.16.84 [id number] 1970 Unknown [id number] 2.16.84 [id number] 1970 Unknown [id number] 2.16.84 [id number] 1970 Unknown [id number] 2.16.8 [id number] 1970 Unknown [id number] 2.16.8 [id number] 1970 Unknown [id number] 2.16.8 [id number] 1970 Unknown [id number] 2.16.8 [id number] 1970 Unknown [id number] 2.16.8 [id number] 1970 Unknown [id number] 2.16.8 [id number] 1961 Self-pay [id number] 1961 Unknown [id number] 2. [id number] Unknown [id number] 2.16.84 [id number] Unknown [id number] 2.16.8 [id number] Social History Date Type Detail Facility Start: 07-12-2022 Tobacco smoking status Never s moked tobacco (finding) [facility] Tobacco smoking status Never Gener [facility] [place] Sex Assigned At Female [facility] Start: 1970 Sex Assigned At Female F [facility] Functional Status Date Assessment Result Facility 07-12-2022 Functional Status N/A General [facility] [place] Clinical Note 08-30-2022 Note Date & Type [...] 10 years. CC: Patient's family physician. [facility] Evaluation note 07-13-2022 Note Date & Type Note Facility 07-13-2022 Evaluation note Encounter Date Diagnosis Assessment Notes Jul, Prediabetes (ICD-10 - R73.09) Jul, Abnormal weight gain (ICD-10 - R63.5) Jul, Hypertension (ICD-10 - I10) Jul, Mixed hyperlipidemia (ICD-10 - E78.2) Jul, Metabolic syndrome X (ICD-10 - E88.81) Jul, Obesity (BMI 30.0-34.9) (ICD-10 - E66.9) [facility] Other Evaluation + Plan note Note Date & Type Note Facility Evaluation + Plan note No data available for this section [facility] [place] Evaluation note Note Date & Type Note Facility Evaluation note No assessment information availa [facility] Work Phone: History general Narrative - Reported Note Date & Type Note Facility History general Narrative - Reported Type Medical History HTN Medical History Hysterectomy Surgical History hysterectomy 2017 Hospitalization History see above [facility] Other Hospital Discharge instructions Note Date & Type Note Facility Hospital Discharge instructions No data available for this section General Surgery [place] Progress note Note Date & Type Note [...] section and content) DATE CREATED AUTHOR 02/27/2018 [facility] DATE CREATED AUTHOR AUTHOR'S ORGANIZ ATION 09/01/2022 [facility] DATE CREATED AUTHOR AUTHOR'S ORGANIZ ATION 01/10/2023 [facility] DATE CREATED AUTHOR AUTHOR'S ORGANIZ ATION 07/13/2023 [facility] Patient Care team informatio n (unrecognized section and content) Personnel Name: JUDIE MCLAIN MD Address: Address: [address] [place] [address] [place] [address] REASON FOR VISIT (unrecogniz ed section and [...] BE BASED ON THE PRIMARY CLINICAL RECORDS. [facility] provides no warranty or guarantee of the accuracy or completeness of information in this document.
--- NOTE | 2023-08-31 07:32 | VEIN_ITS ---
Patient Name: SHARYN BARRY MR#: [id number] : 1970 Exam Date: 08/31/2023 Ordering Doctor: DR ELVIS GO M.D. RADIOLOGY REPORT PROCEDURE: FACILITY EST LMTD VEIN CENTER - OFFICE VISIT FOLLOW UP COMPARISON: [facility] EST TD, 08/24/2023. PROGRESS NOTES: The patient reports improvement in leg symptoms. There has been interval reduction in varicosities. The patient has followed our recommendations to walk 20-30 minutes once or twice per day since the procedure. Physical exam demonstrates decrease in varicosities of the leg. No appreciable remaining varicosities. Review of the ultrasound performed the same day demonstrates occlusive thrombus extending throughout the treated vein(s), see separate report, consistent with a successful ablation. No thrombus extending into or beyond the saphenofemoral junction. VEIN/ Facility EST LMTD IMPRESSION: 1. Successful ablation of the right leg treated branch saphenous vein(s). 2. No appreciable residual varicosities in need of treatment. PLAN: Follow-up in future as needed. Nurse notes, history and physical were reviewed and confirmed, see attached forms. The nurse was present throughout the physical exam and consultation Dictated by: Jorge Gee M.D. on 08/31/2023 at 08:49 Approved by: Jorge Gee M.D. on 08/31/2023 at 08:50
--- NOTE | 2023-08-31 07:32 | VEIN_ITS ---
Patient Name: SHARYN BARRY MR#: [id number] : 1970 Exam Date: 08/31/2023 Ordering Doctor: DR ELVIS GO M.D. RADIOLOGY REPORT PROCEDURE: VC EXT VENOUS RT LMTD COMPARISON: VC EXT VENOUS RT LMTD, 08/24/2023. INDICATIONS: Phlebitis of superficial veins of rt lower extremity I80.01 TECHNIQUE: Lower extremity ross scale and Duplex Doppler evaluation of the deep venous system from the inguinal ligament through the calf veins. FINDINGS: REGION: Right lower extremity. THROMBI: Negative for DVT. Varithena induced thrombus visualized at prox/ant thigh. COMPRESSIBILITY: Non-compressible segments corresponding to thrombus FLOW: Areas of no flow corresponding to thrombus OTHER: No patent varicose veins remain. CONCLUSION: 1. Successful post ablation occlusion of right leg treated branch saphenous varicosities. Dictated by: Jorge Gee M.D. on 08/31/2023 at 08:48 Approved by: Jorge Gee M.D. on 08/31/2023 at 08:49
== END 2023-08-31 07:26 | disposition home or self-care (01) ==
LOC: VC 07:25
PROVIDERS: PCP Radiology Diagnostic Radiology; Visit Provider Radiology Diagnostic Radiology
DX: I80.01 Phlebitis and thrombophlebitis of superficial vessels of right lower extremity (principal)
CPT/HCPCS: 93971; G0463

== ENCOUNTER 2024-06-27 08:19 | Outpatient (OUT) | payer OTHER, SELFPAY ==
--- NOTE | 2024-06-27 08:22 | MM_ITS ---
Patient Name: SHARYN BARRY MR#: [id number] : 1970 Exam Date: 06/27/2024 Ordering Doctor: DR. ELISABET MARTINEZ . RADIOLOGY REPORT PROCEDURE: MM TOMOSYNTHESIS SCREENING BI COMPARISON: MM TOMOSYNTHESIS SCREENING BI, 06/26/2023. MG MAMM SCREEN 3D ALFONSO CAD, 06/20/2022. MG MAMM SCREEN 3D ALFONSO CAD, 08/29/2021. MG MAMM ALFONSO SCRN W CAD DIG, 05/07/2013. INDICATIONS: Screening Calculator Name NCI Breast Cancer Risk Assessment Tool 5 Year Breast Cancer Risk 2.50% Lifetime Breast Cancer Risk 16.90% Personal Breast Cancer No Personal Ovarian Cancer No Treatments None Family Cancers Mother with breast cancer at age 74. LOCATION: [facility] BREAST COMPOSITION: There are scattered areas of fibroglandular density. FINDINGS: DIAGNOSTIC CATEGORY 1--NEGATIVE. RIGHT BREAST: No significant suspicious finding. No significant change has occurred. LEFT BREAST: No significant suspicious finding. No significant change has occurred. RECOMMENDATIONS: ROUTINE MAMMOGRAM AND CLINICAL EVALUATION IN 12 MONTHS. PLEASE NOTE: A NORMAL MAMMOGRAM DOES NOT EXCLUDE THE POSSIBILITY OF BREAST CANCER. A CLINICALLY SUSPICIOUS PALPABLE LUMP SHOULD BE BIOPSIED. Dictated by: Jorge Gee M.D. on 06/29/2024 at 19:47 Approved by: Jorge Gee M.D. on 06/29/2024 at 19:48
--- OUTSIDE RECORDS SUMMARY | 2024-06-27 08:22 | XMS_ITS | CCD ---
Author Organization [facility] CliniSyal Care Team Providers [employer] Sales Executive Name Role Phone JUDIE MCLAIN Primary Care [...] Argueta Attending Unavailable Tex Argueta Admitting Unavailable MD Manolo Ruiz Attending Unavailable MD Manolo Ruiz Attending Unavailable MD Manolo Ruiz Attending Unavailable MD Manolo uRiz. Attending Unavailable MD Manolo Ruiz Attending Unavailable MD Manolo Ruiz Attending Unavailable MD Manolo Ruiz Attending Unavailable Allergies Allergy Classification Reported Allergen(s) Allergy Type Date of Onset Reaction(s) Facility (2 sources) Ciprofloxacin; Translations: [ciprofloxacin] Drug Allergy Itching (finding), Eruption of skin (disorder) General Surgery [facility] (2 sources) Penicillin; Translations: [penicillin] Drug Allergy Eruption of skin (disorder), Itching (finding) General Surgery [facility] (2 sources) Sulfonamides (Antibiotic); Translations: [sulfa drugs] Drug allergy Eruption of skin (disorder), Itching (finding) General Surgery [place] (1 source) Penicillin G Drug Allergy Unknown [facility] Other (1 source) Sulfacetamide Drug Allergy Unknown [facility] Other (1 source) Ciprofloxacin Drug Allergy 6 [facility] (1 source) Penicillins Drug allergy (disorder) 6 [facility] (1 source) Sulfonamides (Antibiotic) Drug allergy (disorder) 6 [facility] Medications Current Medications Medication Drug [...] Reference Range Facil ity Ambulatory Visit Summaryon 0 04-07-2024 Ambulatory Visit Summary Ambulatory Visit Summary GRACY BARRY :1970 Visit Date:04/07/2024 Ambulatory Visit Instructions Your Diagnosis Hair loss Primary hypertension BMI 25.0-25.9,adult Over weight Nonsmoker Excessive dietary caloric intake Your Care Team Attending Physician - Manolo Ruiz MD Primary Care Physician - Manolo Ruiz MD This Is Your Medications List Contact prescribing physician if questions or concerns estradiol (estradiol 1 mg oral tablet) Procedures Performed Vaginal hysterectomy. Discharge Vitals Temperature (Temporal Artery) 36.7 ?C Heart Rate (Peripheral) 68 Respiratory Rate 16 Blood Pressure 120/78 Height 160 cm Height 63 in Weight 66.1 kg Weight 145.42 lb BMI 25.82 What to do next Scheduled Follow-Up Appointments Sunday 8:30 AM EST With: Manolo Ruiz MD Where: [address] [address]- Medications What How Much When Instructions Unchanged estradiol (estradiol 1 mg oral tablet) 1 Tablets By Mouth Every day Contact prescribing physician if questions or concerns Allergies Cipro (Itching, Rash) penicillin (Rash, Itching) sulfa drugs (Rash, Itching) Problems Ongoing - Any problem that you are currently receiving treatment for. BMI 33.0-33.9,adult Excessive dietary caloric intake Hair loss Varicose vein of leg Patient Survey You may receive a survey via text or e-mail asking about your office visit. Please share your experience with us by completing your survey. We appreciate your feedback and thank you for choosing us for your care. Education Materials BMI for Adults What is BMI? Body mass index (BMI) is a number that is calculated from a person's weight and height. BMI can help estimate how much of a person's weight is composed of fat. BMI does not measure body fat directly. Rather, it is an alternative to procedures that directly measure body fat, which can be difficult and expensive. BMI can help identify people who may be at higher risk for certain medical problems. What are BMI measurements used for? BMI is used as a screening tool to identify possible weight problems. It helps determine whether a person is obese, overweight, a healthy weight, or underweight. BMI is useful for: ? Identifying a weight problem that may be related to a medical condition or may increase the risk for medical problems. ? Promoting changes, such as changes in diet and exercise, to help reach a healthy weight. BMI screening can be repeated to see if these changes are working. How is BMI calculated? BMI involves measuring your weight in relation to your height. Both height and weight are measured, and the BMI is calculated from those numbers. This can be done either in [place] or metric measurements. Note that charts and online BMI calculators are available to help you find your BMI quickly and easily without having to do these calculations yourself. To calculate your BMI in [place] measurements: 1. Measure your weight in pounds (lb). 2. Multiply the number of pounds by 703. ? For example, for a person who weighs 180 lb, multiply that number by 703, which equals 126,540. 3. Measure your height in inches. Then multiply that number by itself to get a measurement called inches squared. ? For example, for a person who is 70 inches tall, the inches squared measurement is 70 inches x 70 inches, which equals 4,900 inches squared. 4. Divide the total from step 2 (number of lb x 703) by the total from step 3 (inches squared): 126,540 ? 4,900 = 25.8. This is your BMI. To calculate your BMI in metric measurements: 1. Measure your weight in kilograms (kg). 2. Measure your height in meters (m). Then multiply that number by itself to get a measurement called meters squared. ? For example, for a person who is 1.75 m tall, the meters squared measurement is 1.75 m x 1.75 m, which is equal to 3.1 meters squared. 3. Divide the number of kilograms (your weight) by the meters squared number. In this example: 70 ? 3.1 = 22.6. This is your BMI. What do the results mean? BMI charts are used to identify whether you are underweight, normal weight, overweight, or obese. The following guidelines will be used: ? Underweight: BMI less than 18.5. ? Normal weight: BMI between 18.5 and 24.9. ? Overweight: BMI between 25 and 29.9. ? Obese: BMI of 30 or above. Keep these notes in mind: ? Weight includes both fat and muscle, so someone with a muscular build, such as an athlete, may have a BMI that is higher than 24.9. In cases like these, BMI is not an accurate measure of body fat. ? To determine if excess body fat is the cause of a BMI of 25 or higher, further assessments may need to be done by a health care provider. ? BMI is usually interpreted in the same (more content not included)... Normal [facility] Family Medicine Office/Clini c Noteon 04-07-2024 Family Medicine Office/Clinic Note Family Medicine Office/Clinic Note HPI Staff Gracy is a 53 year old female presenting for 6 month follow up htn Patient is here for follow up on hypertension. How often are you checking your blood pressure? randomly What are your average readings? running good at home _ Yearly BMP: ?? questions/concerns: starting in march lost big clump of hair and again today, and feels her hair smells no longer taking weight loss meds as this scared her Review of Systems PHQ Score Initial Depression Screen Score: 0 SCORE Physical Exam Vitals & Measurements T: 36.7 ?C(Temporal Artery) HR: 68(Peripheral) RR: 16 BP: 120/78 SpO2: 100% HT: 63 in HT: 160 cm WT: 66.1 kg WT: 145.42 lb BMI: 25.82 Assessment/Plan 1. Hair loss (L65.9: Nonscarring hair loss, unspecified) Likely secondary to the patient's weight loss. Discussed this in detail. Will have the patient monitor and if hair loss continues we will do a thyroid and look for nutritional deficiency. Continue taking biotin. 2. Primary hypertension (I10: Essential (primary) hypertension) Patient is not on medication for blood pressures. At this time we will remove the diagnosis of hypertension. Follow-up as needed 3. BMI 25.0-25.9,adult (Z68.25: Body mass index [BMI] 25.0-25.9, adult) BMI education added. Discussed diet and exercise. 4. Over weight (E66.3: Overweight) As above 5. Nonsmoker (Z78.9: Other specified health status) Please continue not to smoke. 6. Excessive dietary caloric intake (R63.2: Polyphagia) Diet and exercise advised. Patient is doing well on maintaining without medication. Orders: phentermine, 37.5 mg = 1 cap(s), Oral, Daily, # 30 cap(s), Refills(s) 2, Pharmacy: [facility], 160, cm, 10/08/23 13:16:00 EST, Height/Length Dosing, 65.1, kg, 10/08/23 13:16:00 EST, Weight Dosing Follow-up No qualifying data available Patient Education BMI for Adults Problem List/Past Medical History Ongoing BMI 33.0-33.9,adult Excessive dietary caloric intake Hair loss Varicose vein of leg Historical No qualifying data Procedure/Surgical History Vaginal hysterectomy. Medications estradiol 1 mg oral tablet, 1 mg= 1 tab(s), Oral, Daily Allergies Cipro (Itching, Rash) penicillin (Rash, Itching) sulfa drugs (Rash, Itching) Social History Alcohol - Denies Alcohol Use, 07/12/2022 Substance Abuse - Denies Substance Abuse, 07/12/2022 Tobacco Never (less than 100 in lifetime) Tobacco Use:. Never Smokeless Tobacco Use:., 04/07/2024 Family History Diabetes mellitus type 2: Father. Heart disease: Mother and Father. Hyperlipidemia: Father. Hypertension: Father. Primary malignant neoplasm of female breast: Mother. Immunizations Vaccine Date Status Comments influenza virus vaccine, inactivated - Not Given Patient Refuses SARS-CoV-2 (COVID-19) mRNA BNT-162b2 vax 09/16/2021 Recorded Normal [facility] Comment on above: Result Comment: Elec tronically Signed By: Joseph ALEXANDER, Manolo Chance\.br\Date and Time Signed: 04/07/24 09:39 EDT Ambulatory Visit Summaryon 0 10-08-2023 Ambulatory Visit Summary GRACY BARRY :1970 Visit Date:10/08/2023 Ambulatory Visit Instructions Your Diagnosis Excessive dietary caloric intake Primary hypertension BMI 25.0-25.9,adult Overweight Nonsmoker Your Care Team Attending Physician - Manolo Ruiz MD Primary Care Physician - Manolo Ruiz MD This Is Your Medications List phentermine (Adipex-P 37.5 mg oral capsule) Contact prescribing physician if questions or concerns estradiol (estradiol 1 mg oral tablet) [Image Removed: STOP]Stop taking these medications bisoprolol-hydrochlor othiazide (bisoprolol-hydrochlo rothiazide 2.5 mg-6.25 mg Tab) Procedures Performed Vaginal hysterectomy. Discharge Vitals Temperature (Temporal Artery) 36.8 ?C Heart Rate (Peripheral) 62 Respiratory Rate 14 Blood Pressure 122/78 Height 160 cm Height 63 in Weight 65.1 kg Weight 143.22 lb BMI 25.43 What to do next Scheduled Follow-Up Appointments Sunday 9:15 AM EDT With: Manolo Ruiz MD Where: [facility] [place] Normal [facility] Family Medicine Office/Clini c Noteon 10-08-2023 Family Medicine Office/Clinic Note HPI Staff Gracy is a 53 year old female presenting for 3 month follow up Weight management: Started Phentermine on 04/03/24 Sleeping well:Yes, 6-8 hours Chest pain:No Tremors:No Headaches:No Heart fluttering:No Blurred Vision:No Beginning weight: 175.34 Ibs/ 79.7kg Previous weight: 65.5kg/ 144.1lbs Today's weight: 65.1kg/ 143.2lbs Questions/Concerns: need her bisoprolol refilled History of Present Illness - Here for weight check. - Please see staff HPI. Review of Systems PHQ Score Initial Depression Screen Score: 0 SCORE Physical Exam Vitals & Measurements T: 36.8 ?C(Temporal Artery) HR: 62(Peripheral) RR: 14 BP: 122/78 SpO2: 100% HT: 63 in HT: 160 cm WT: 65.1 kg WT: 143.22 lb BMI: 25.43 General: alert, no acute distress ENMT: oral mucosa moist, Cardiovascular: regular rate and rhythm, normal peripheral perfusion Respiratory: Lungs CTA, respirations non labored Extremities: no deformity, no trauma Neurological: oriented x 4, LOC appropriate for age, CN II-XII intact, motor strength equal & normal bilaterally, speech normal Abdomen: Soft, Nontender, Non-distended, + BS Assessment/Plan 1. Excessive dietary caloric intake (R63.2: Polyphagia) - Continues to loose weight. - Working on diet and exercise - Wants to loose 10 more pounds so that when she is off she comes back to normal - Ok for one more refill. - Follow up PRN 2. Primary hypertension (I10: Essential (primary) hypertension) - At goal without meds - OK to remove meds at this time 3. BMI 25.0-25.9,adult (Z68.25: Body mass index [BMI] 25.0-25.9, adult) - BMI education given 4. Overweight (E66.3: Overweight) - Diet and exercise advised 5. Nonsmoker (Z78.9: Other specified health status) - Please continue to not smoke. Orders: phentermine, 37.5 mg = 1 cap(s), Oral, Daily, # 30 cap(s), Refills(s) 2, Pharmacy: [facility]/pharmacy #[id number], 160, cm, 10/08/23 13:16:00 EST, Height/Length Dosing, 65.1, kg, 10/08/23 13:16:00 EST, Weight Dosing Follow-up No qualifying data available Patient Education BMI for Adults Problem List/Past Medical History Ongoing Acute URI BMI 33.0-33.9,adult Excessive dietary caloric intake Primary hypertension Screening for malignant neoplasm of colon Varicose vein of leg Historical No qualifying data Procedure/Surgical History Vaginal hysterectomy. Medications Adipex-P 37.5 mg oral capsule, 37.5 mg= 1 cap(s), Oral, Daily, 2 refills estradiol 1 mg oral tablet, 1 mg= 1 tab(s), Oral, Daily Allergies Cipro (Itching, Rash) penicillin (Rash, Itching) sulfa drugs (Rash, Itching) Social History Alcohol - Denies Alcohol Use, 07/12/2022 Substance Abuse - Denies Substance Abuse, 07/12/2022 Tobacco Never (less than 100 in lifetime) Tobacco Use:. Never Smokeless Tobacco Use:., 10/08/2023 Family History Diabetes mellitus type 2: Father. Heart disease: Mother and Father. Hyperlipidemia: Father. Hypertension: Father. Primary malignant neoplasm of female breast: Mother. Immunizations Vaccine Date Status Comments influenza virus vaccine, inactivated - Not Given Patient Refuses SARS-CoV-2 (COVID-19) mRNA BNT-162b2 vax 09/16/2021 Recorded Normal [facility] Comment on above: Result Comment: Elec tronically Signed By: Joseph ALEXANDER, Manolo Chance\.br\Date and Time Signed: 10/08/23 13:29 EST Patient Educationon 10-08-19 Patient Education Nutrition BMI for Adults What is BMI? Body mass index (BMI) is a number that is calculated from a person's weight and height. BMI can help estimate how much of a person's weight is composed of fat. BMI does not measure body fat directly. Rather, it is an alternative to procedures that directly measure body fat, which can be difficult and expensive. BMI can help identify people who may be at higher risk for certain medical problems. What are BMI measurements used for? BMI is used as a screening tool to identify possible weight problems. It helps determine whether a person is obese, overweight, a healthy weight, or underweight. BMI is useful for: ? Identifying a weight problem that may be related to a medical condition or may increase the risk for medical problems. ? Promoting changes, such as changes in diet and exercise, to help reach a healthy weight. BMI screening can be repeated to see if these changes are working. How is BMI calculated? BMI involves measuring your weight in relation to your height. Both height and weight are measured, and the BMI is calculated from those numbers. This can be done either in [place] or metric measurements. Note that charts and online BMI calculators are available to help you find your BMI quickly and easily without having to do these calculations yourself. To calculate your BMI in [place] measurements: 1. Measure your weight in pounds (lb). 2. Multiply the number of pounds by 703. ? For example, for a person who weighs 180 lb, multiply that number by 703, which equals 126,540. 3. Measure your height in inches. Then multiply that number by itself to get a measurement called inches squared. ? For example, for a person who is 70 inches tall, the inches squared measurement is 70 inches x 70 inches, which equals 4,900 inches squared. 4. Divide the total from step 2 (number of lb x 703) by the total from step 3 (inches squared): 126,540 ? 4,900 = 25.8. This is your BMI. To calculate your BMI in metric measurements: 1. Measure your weight in kilograms (kg). 2. Measure your height in meters (m). Then multiply that number by itself to get a measurement called meters squared. ? For example, for a person who is 1.75 m tall, the meters squared measurement is 1.75 m x 1.75 m, which is equal to 3.1 meters squared. 3. Divide the number of kilograms (your weight) by the meters squared number. In this example: 70 ? 3.1 = 22.6. This is your BMI. What do the results mean? BMI charts are used to identify whether you are underweight, normal weight, overweight, or obese. The following guidelines will be used: ? Underweight: BMI less than 18.5. ? Normal weight: BMI between 18.5 and 24.9. ? Overweight: BMI between 25 and 29.9. ? Obese: BMI of 30 or above. Keep these notes in mind: ? Weight includes both fat and muscle, so someone with a muscular build, such as an athlete, may have a BMI that is higher than 24.9. In cases like these, BMI is not an accurate measure of body fat. ? To determine if excess body fat is the cause of a BMI of 25 or higher, further assessments may need to be done by a health care provider. ? BMI is usually interpreted in the same way for men and women. Where to find more information For more information about BMI, including tools to quickly calculate your BMI, go to these websites: ? Centers for Disease Control and Prevention: www.cdc.gov ? [place] Heart Association: www.heart.org ? National Heart, Lung, and Blood [place]: www.nhlbi.nih.gov Summary ? Body mass index (BMI) is a number that is calculated from a person's weight and height. ? BMI may help estimate how much of a person's weight is composed of fat. BMI can help identify those who may be at higher risk for certain medical problems. ? BMI can be measured using [place] measurements or metric measurements. ? BMI charts are used to identify whether you are underweight, normal weight, overweight, or obese. This information is not intended to replace advice given to you by your health care provider. Make sure you discuss any questions you have with your health care provider. Document Revised: 05/12/2020 Document Reviewed: 03/19/2020 [employer] Patient Education ? 2022 [email or web address]. [facility] Ambulatory Visit Summaryon 0 2023 Ambulatory Visit Summary GRACY BARRY :1970 Visit Date:2023 Ambulatory Visit Instructions Your Diagnosis Acute URI Primary hypertension BMI 25.0-25.9,adult Over weight Nonsmoker Your Care Team Attending Physician - Manolo Ruiz MD Primary Care Physician - Manolo Ruiz MD This Is Your Medications List bisoprolol-hydrochlor othiazide (bisoprolol-hydrochlo rothiazide 2.5 mg-6.25 mg Tab) estradiol (estradiol 1 mg oral tablet) phentermine (Adipex-P 37.5 mg oral capsule) Procedures Performed Vaginal hysterectomy. Discharge Vitals Temperature (Temporal Artery) 37.2 ?C Heart Rate (Peripheral) 90 Respiratory Rate 16 Blood Pressure 126/82 Height 160 cm Height 63 in Weight 65.5 kg Weight 144.1 lb BMI 25.59 What to do next Scheduled Follow-Up Appointments Sunday 1:15 PM EST With: Manolo Ruiz MD Where: [facility] Family Medicine [place] [facility] Family Medicine Office/Clini c Noteon 2023 Family Medicine Office/Clinic Note HPI Staff Gracy is a 53 year old female presenting for acute visit Respiratory C/O: Onset: sunday 12 Body aches: yes Chest congestion: yes Chills: no Cough: yes Sputum production: yes colored Sore throat: yes Ear complaints: no Eye itching/watering: yes Fever: no Headache: yes Nasal congestion: yes Nasal discharge: yes colored Poor appetite: yes Reduced activity: yes Sinus pain/pressure: no Sneezing: no Wheezing: no Ill contacts: no Remedies tried: virgie davila night time Questions/Concerns: Pt tested negative for Covid on 09/03/23 History of Present Illness - See staff HPI. Review of Systems PHQ Score Initial Depression Screen Score: 0 SCORE Physical Exam Vitals & Measurements T: 37.2 ?C(Temporal Artery) HR: 90(Peripheral) RR: 16 BP: 126/82 SpO2: 98% HT: 63 in HT: 160 cm WT: 65.5 kg WT: 144.1 lb BMI: 25.59 General: alert, no acute distress ENMT: oral mucosa moist, Soft palate is red and swollen. Cardiovascular: regular rate and rhythm, normal peripheral perfusion Respiratory: Lungs CTA, respirations non labored Extremities: no deformity, no trauma Neurological: oriented x 4, LOC appropriate for age, CN II-XII intact, motor strength equal & normal bilaterally, speech normal Abdomen: Soft, Nontender, Non-distended, + BS Assessment/Plan 1. Acute URI (J06.9: Acute upper respiratory infection, unspecified) - OTC meds - Medrol - Precautions discussed in detail. When to return discussed along with when to go to the ER. Pt verbalized understanding. Ordered: methylPREDNISolone, = 1 packet(s), Oral, As Directed, as directed on package labeling, X 6 day(s), # 21 tab(s), Refills(s) 0, Pharmacy: [facility], 160, cm, 09/04/23 14:15:00 EST, Height/Length Dosing, 65.5, kg, 09/04/23 14:15:00 EST, Weight Dosing 2. Primary hypertension (I10: Essential (primary) hypertension) - At goal. - Follow up PRN Ordered: methylPREDNISolone, = 1 packet(s), Oral, As Directed, as directed on package labeling, X 6 day(s), # 21 tab(s), Refills(s) 0, Pharmacy: [facility], 160, cm, 09/04/23 14:15:00 EST, Height/Length Dosing, 65.5, kg, 09/04/23 14:15:00 EST, Weight Dosing 3. BMI 25.0-25.9,adult (Z68.25: Body mass index [BMI] 25.0-25.9, adult) - BMI education given Ordered: methylPREDNISolone, = 1 packet(s), Oral, As Directed, as directed on package labeling, X 6 day(s), # 21 tab(s), Refills(s) 0, Pharmacy: [facility], 160, cm, 09/04/23 14:15:00 EST, Height/Length Dosing, 65.5, kg, 09/04/23 14:15:00 EST, Weight Dosing 4. Over weight (E66.3: Overweight) - Continue on weight loss. Doing well. Ordered: methylPREDNISolone, = 1 packet(s), Oral, As Directed, as directed on package labeling, X 6 day(s), # 21 tab(s), Refills(s) 0, Pharmacy: [facility], 160, cm, 09/04/23 14:15:00 EST, Height/Length Dosing, 65.5, kg, 09/04/23 14:15:00 EST, Weight Dosing 5. Nonsmoker (Z78.9: Other specified health status) - Please continue to not smoke Ordered: methylPREDNISolone, = 1 packet(s), Oral, As Directed, as directed on package labeling, X 6 day(s), # 21 tab(s), Refills(s) 0, Pharmacy: [facility], 160, cm, 09/04/23 14:15:00 EST, Height/Length Dosing, 65.5, kg, 09/04/23 14:15:00 EST, Weight Dosing Follow-up No qualifying data available Problem List/Past Medical History Ongoing Acute URI BMI 33.0-33.9,adult Excessive dietary caloric intake Primary hypertension Screening for malignant neoplasm of colon Varicose vein of leg Historical No qualifying data Procedure/Surgical History Vaginal hysterectomy. Medications Adipex-P 37.5 mg oral capsule, 37.5 mg= 1 cap(s), Oral, Daily, 2 refills bisoprolol-hydrochlor othiazide 2.5 mg-6.25 mg Tab, 1 tab(s), Oral, Daily estradiol 1 mg oral tablet, 1 mg= 1 tab(s), Oral, Daily Medrol Dosepack 4 mg Tab, 1 packet(s), Oral, As Directed Allergies Cipro (Itching, Rash) penicillin (Rash, Itching) sulfa drugs (Rash, Itching) Social History Alcohol - Denies Alcohol Use, 07/12/2022 Substance Abuse - Denies Substance Abuse, 07/12/2022 Tobacco Never (less than 100 in lifetime) Tobacco Use:. Never Smokeless Tobacco Use:., 2023 Family History Diabetes mellitus type 2: Father. Heart disease: Mother and Father. Hyperlipidemia: Father. Hypertension: Father. Primary malignant neoplasm of female breast: Mother. Immunizations Vaccine Date Status Comments influenza virus vaccine, inactivated - Not Given Patient Refuses SARS-CoV-2 (COVID-19) mRNA BNT-162b2 vax 09/16/2021 Recorded Normal [facility] Comment on above: Result Comment: Elec tronically Signed By: Manolo Ruiz MD\.br\Date and Time Signed: 09/04/23 14:31 EST Ambulatory Visit Summaryon 1 09-10-2022 Ambulatory Visit Summary ASHA GRACY Cobos :1970 Visit Date:07/11/2023 Ambulatory Visit Instructions [...] PM EST With: Manolo Ruiz MD Where: [facility] [place] Normal [facility] Family Medicine Office/Clini c Noteon 07-11-2023 Family [...] # 30 cap(s), Refills(s) 2, Pharmacy: [facility], 160, cm, 07/11/23 14:21:00 EST, Height/Length [...] (COVID-19) mRNA BNT-162b2 vax 09/16/2021 Recorded Normal [facility] Comment on above: Result Comment: Elec tronically Signed By: Manolo Ruiz MD\.br\Date and Time Signed: 07/11/23 14:41 EST Outside Mammographyon 2022 Outside Mammography [id number] Normal [facility] Ambulatory Visit Summaryon 0 05-09-2023 Ambulatory Visit Summary GRACY BARRY :1970 Visit Date:05/09/2023 Ambulatory Visit Instructions Your [...] EDT With: Joseph ALEXANDER, Manolo Chance Where: [id number] [place] [address]- \.br\ Medications\.br \ What How Much When [...] Pharmacy Information\.br \ [facility]: [address], [place] [id number] [phone]\.br\ Allergies\.br\ Cipro (Itching, Rash)\.br\ penicillin (Rash, Itching)\.br\ sulfa drugs (Rash, Itching)\.br\ Problems\.br\ Ongoing - Any problem that you are currently receiving treatment for.\.br\ BMI 33.0-33.9,adult \.br\ Excessive dietary caloric intake\.br\ Primary hypertension\.b r\ Screening for malignant neoplasm of colon\.br\ Varicose vein of leg\.br\ \.br\ [facility] Medicine Office/Clini c Noteon 05-09-2023 Family Medicine [...] (COVID-19) mRNA BNT-162b2 vax 09/16/2021 Recorded Normal [facility] Comment on above: Result Comment: Elec tronically Signed By: Joseph ALEXANDER, Manolo Chance\.br\Date and Time Signed: 05/09/23 16:36 EDT Covid-19 PCR ([facility])on 08-04 SARS-CoV-2 (COVID-19) RNA LUÍS+probe Ql (Unsp spec) Not detected Normal NOT DETECTED [facility] Comment on above: Result Comment: This test is not yet approved or cleared by the [place] FDA. When there are no FDA-approved or cleared tests available, and other criteria are met, FDA can make tests available under an emergency access mechanism called an Emergency Use Authorization (EUA). The EUA for this test is supported by the [employer] Pathologist of Health and Human Service's (HHS's) declaration [...] consistent with SARS-CoV-2. Performed By: #### [facility] [employer] #### [facility] [address] [place] [address] Dr. Nitin Danielle A1C HEMOGLOBINon 07-13-2022 HbA1c (Bld) [Mass fraction] 5.9 % [employer] Other HbA1c (Bld) [Mass fraction]o n 07-13-2022 A1C HEMOGLOBIN [employer] Other MG MAMM SCREEN 3D ALFONSO CADon 06-20-2022 MG MAMM SCREEN 3D ALFONSO CAD Patient: GRACY BARRY Exam Date: 06/20/2022 : 1970 Gender:F Ordering : DR DAMEON RUSS . Admission #: [id number] Family : DR JUDIE MCLAIN . Order #: [id number] CLICK HERE TO VIEW EXAM RADIOLOGY REPORT [...] with breast cancer at age 72. LOCATION: [facility] BREAST COMPOSITION: Scattered areas fibroglandular density. [...] Gee M.D. on 06/20/2022 at 15:57 Normal [facility] XR DEXA BONE DENSITYon 06-20 XR [...] authenticated by: JORGE GEE Date: 2022-06-20 19:29 Normal [facility] PAP ACOG PANEL 2: 30 to 65on 06-14-2022 . . Normal [facility] Comment on above: Result Comment: Perf ormed at: BA Performed By: #### [id number] #### [facility] [address] [address] [address] Nitin Danielle Age Gdln ACOG Testing 30-65 Normal [facility] Comment on above: Performed By: #### [id number] #### [facility] [address] [address] [address] Nitin Danielle DIAGNOSIS: Comment Normal [facility] Comment on above: Result Comment: NEGA TIVE FOR INTRAEPITHELIAL LESION OR MALIGNANCY. Performed at: BA Performed By: #### [id number] #### [facility] [address] [address] [address] Nitin Danielle HPV Aptima Negative Normal Negative [facility] Comment on above: Result Comment: This nucleic acid amplification test detects fourteen high-risk HPV types (16,18,31,33,35,39,45,51,52,56,58,59,66,68) without differentiation. Performed at: =G Performed By: #### [id number] #### [facility] [address] [address] [address] Nitin Danielle Methodology: Comment Normal [facility] Comment on above: Result Comment: This liquid based ThinPrep(R) pap test was screened with the use of an image guided system. Performed at: WB Performed By: #### [id number] #### [facility] [address] [place] [address] Dr. Nitin Danielle Note: Comment Normal [facility] Comment on above: Result Comment: The Pap smear is a screening test designed to aid in the detection of premalignant and malignant conditions of the uterine cervix. It is not a diagnostic procedure and should not be used as the sole means of detecting cervical cancer. Both false-positive and false-negative reports do occur. . Performed at: WB Performed By: #### [id number] #### [facility] [address] [place] [address] Dr. Nitin Danielle Performed by: Comment Normal [facility] Comment on above: Result Comment: Craig Sellers, Route Rider (ASCP) Performed at: BA Performed By: #### [id number] #### [facility] [address] [place] [address] Dr. Nitin Danielle Specimen adequacy: Comment Normal [facility] Comment on above: Result Comment: Sati sfactory for evaluation. No endocervical component is identified. Performed at: BA Performed By: #### [id number] #### [facility] [address] [place] [address] Dr. Nitin Danielle CBC AUTO DIFFon 11-18-2021 BASO # 0.0 103/ul Normal 0.0-0.1 [facility] Comment on above: Performed By: #### D ATCBC #### [facility] [address] [place] [address] Dr. Nitin Danielle Basophils/100 WBC (Bld) 0.4 % Normal 0.2-2.0 [facility] Comment on above: Performed By: #### D ATCBC #### [facility] [address] [place] [address] Dr. Nitin Danielle EO # 0.1 103/ul Normal 0.0-0.7 [facility] Comment on above: Performed By: #### D ATCBC #### [facility] [address] [place] [address] Dr. Nitin Danielle Eosinophils/100 WBC (Bld) 1.1 % Normal 0.9-7.0 [facility] Comment on above: Performed By: #### D ATCBC #### [facility] [address] [place] [address] Dr. Nitin Danielle Erythrocyte distribution width (RBC) [Ratio] 13.2 % Normal 11.0-15.0 [facility] Comment on above: Performed By: #### D ATCBC #### [facility] [address] [address] [address] Nitin Danielle Hematocrit (Bld) [Volume fraction] 43.0 % Normal 36.0-48.0 [facility] Comment on above: Performed By: #### D ATCBC #### [facility] [address] [place] [address] Dr. Nitin Danielle Hemoglobin (Bld) [Mass/Vol] 14.5 g/dL Normal 12.0-16.0 [facility] Comment on above: Performed By: #### D ATCBC #### [facility] [address] [place] [address] Dr. Nitin Danielle IG # 0.02 10e3/ul Normal 0.00-0.03 [facility] Comment on above: Performed By: #### D ATCBC #### [facility] [address] [place] [address] Dr. Nitin Danielle IG % 0.3 % Normal 0.0-0.5 [facility] Comment on above: Performed By: #### D ATCBC #### [facility] [address] [place] [address] Dr. Nitin Danielle LYMPH # 2.3 103/ul Normal 1.2-3.8 [facility] Comment on above: Performed By: #### D ATCBC #### [facility] [address] [place] [address] Dr. Nitin Danielle Lymphocytes/100 WBC (Bld) 32.3 % Normal 20.5-60.0 [facility] Comment on above: Performed By: #### D ATCBC #### [facility] [address] [place] [address] Dr. Nitin Danielle MCH (RBC) [Entitic mass] 31.3 pg Normal 26.7-34.0 [facility] Comment on above: Performed By: #### D ATCBC #### [facility] [address] [place] [address] Dr. Nitin Danielle MCHC (RBC) [Mass/Vol] 33.7 g/dL Normal 29.9-35.2 [facility] Comment on above: Performed By: #### D ATCBC #### [facility] [address] [place] [address] Dr. Nitin Danielle MCV (RBC) [Entitic vol] 92.9 fL Normal 81.0-99.0 [facility] Comment on above: Performed By: #### D ATCBC #### [facility] [address] [place] [address] Dr. Nitin Danielle MONO # 0.6 103/ul Normal 0.3-0.8 [facility] Comment on above: Performed By: #### D ATCBC #### [facility] [address] [place] [address] Dr. Nitin Danielle Monocytes/100 WBC (Bld) 7.9 % Normal 1.7-12.0 [facility] Comment on above: Performed By: #### D ATCBC #### [facility] [address] [place] [address] Dr. Nitin Danielle NEUT # 4.1 103/ul Normal 1.4-6.5 [facility] Comment on above: Performed By: #### D ATCBC #### [facility] [address] [place] [address] Dr. Nitin Danielle Neutrophils/100 WBC (Bld) 58.0 % Normal 43.0-75.0 [facility] Comment on above: Performed By: #### D ATCBC #### [facility] [address] [place] [address] Dr. Nitin Danielle Platelet mean volume (Bld) [Entitic vol] 11.0 fL Normal 9.5-13.5 [facility] Comment on above: Performed By: #### D ATCBC #### [facility] [address] [place] [address] Dr. Nitin Danielle PLT 236 103/ul Normal 150-450 [facility] Comment on above: Performed By: #### D ATCBC #### [facility] [address] [place] [address] Dr. Nitin Danielle RBC 4.63 106/ul Normal 4.20-5.40 [facility] Comment on above: Performed By: #### D ATCBC #### [facility] [address] [address] [address] Nitin Danielle WBC 7.1 103/ul Normal 4.0-11.0 [facility] Comment on above: Performed By: #### D ATCBC #### [facility] [address] [address] [address] Nitin Danielle RAMIRO- BMP WITH LIPIDon 2021 Anion gap [Moles/Vol] 12.0 mmol/L Normal [facility] Comment on above: Performed By: #### D ATBMP #### [facility] [address] [address] [address] Nitin Danielle Calcium [Mass/Vol] 8.9 mg/dL Normal 8.5-10.1 [facility] Comment on above: Performed By: #### D ATBMP #### [facility] [address] [place] [address] Dr. Nitin Danielle Chloride [Moles/Vol] 103 mmol/L Normal 98-107 [facility] Comment on above: Performed By: #### D ATBMP #### [facility] [address] [place] [address] Dr. Nitin Danielle Cholesterol [Mass/Vol] 257 mg/dL Critically high <=200 [facility] Comment on above: Performed By: #### D ATBMP #### [facility] [address] [place] [address] Dr. Nitin Danielle Cholesterol in HDL [Mass/Vol] 44 mg/dL Normal 40-60 [facility] Comment on above: Performed By: #### D ATBMP #### [facility] [address] [address] [address] Nitin Danielle Cholesterol in LDL [Mass/Vol] 153.0 mg/dL Normal [facility] Comment on above: Performed By: #### D ATBMP #### [facility] [address] [place] [address] Dr. Nitin Danielle CO2 [Moles/Vol] 29.1 mmol/L Normal 22.0-30.0 [facility] Comment on above: Performed By: #### D ATBMP #### [facility] [address] [address] [address] Nitin Danielle Creatinine [Mass/Vol] 0.66 mg/dL Normal 0.52-1.04 [facility] Comment on above: Performed By: #### D ATBMP #### [facility] [address] [address] [address] Nitin Danielle EGFR-AF LAO >60 Normal >=60 [facility] Comment on above: Performed By: #### D ATBMP #### [facility] [address] [address] [address] Nitin Danielle EGFR-NON AF LAO >60 Normal >=60 [facility] Comment on above: Performed By: #### D ATBMP #### [facility] [address] [address] [address] Nitin Danielle Glucose [Mass/Vol] 109 mg/dL Critically high 74-106 [facility] Comment on above: Performed By: #### D ATBMP #### [facility] [address] [address] [address] Nitin Danielle HDL NORMAL > or = 60 mg/dl - LO W CARDIOVASCULAR RISK <40 mg/dl - HIGH CARDIOVASCULAR RISK Normal [facility] Comment on above: Performed By: #### D ATBMP #### [facility] [address] [address] [address] Nitin Danielle LDL CALC NORMAL SEE BELOW Normal [facility] Comment on above: Result Comment: <100 mg/dl OPTIMAL 100 - 129 mg/dl NEAR OR ABOVE OPTIMAL 130 - 159 mg/dl BORDERLINE HIGH 160 - 189 mg/dl HIGH >190 mg/dl VERY HIGH Performed By: #### D ATBMP #### [facility] [address] [address] [address] Nitin Danielle Potassium [Moles/Vol] 4.1 mmol/L Normal 3.4-5.0 [facility] Comment on above: Performed By: #### D ATBMP #### [facility] [address] [address] [address] Nitin Danielle Sodium [Moles/Vol] 140 mmol/L Normal 137-145 [facility] Comment on above: Performed By: #### D ATBMP #### [facility] [address] [address] [address] Nitin Danielle Triglyceride [Mass/Vol] 300 mg/dL Critically high <=150 [facility] Comment on above: Performed By: #### D ATBMP #### [facility] [address] [place] [address] Dr. Nitin Danielle Urea nitrogen [Mass/Vol] 14.0 mg/dL Normal 7.0-18.0 [facility] Comment on above: Performed By: #### D ATBMP #### [facility] [address] [place] [address] Dr. Nitin Danielle Urea nitrogen/Creatini ne [Mass ratio] 21.2 mg/mg Normal [facility] Comment on above: Performed By: #### D ATBMP #### [facility] [address] [place] [address] Dr. Nitin Danielle VLDL CALC 60.0 mg/dL Normal [facility] Comment on above: Performed By: #### D ATBMP #### [facility] [address] [place] [address] Dr. Nitin Danielle CYTOLOGYon 03-26-2017 CYTOLOGY Specimen #: [id number] Physician: JUDIE GARCIAPECDAY SUBMITTEDA: CERVICAL, SCREENING, FLUID ____FINAL DIAGNOSISA. CERVICAL, SCREENING, FLUIDSatisfactory for interpretation.No endocervical component.Negative for intraepithelial lesion or malignancy.This specimen has been analyzed by the ThinPrep Imaging System, [employer] imaging and review system, which assists the laboratory inevaluating cells on ThinPrep Pap tests. Following automated imaging,selected young from every slide are reviewed by a pediatric audiologist.FAMILIA Blancas(ASCP) (Electronic Signature) ____CLINICAL DATA PAP Source: Cervical-PFCERSMenstr ual History:Post-Menopaus alHYSTERECTOMY: subtotal, 04/18Clinical History:ROUTINESTAINS A: CERVICAL, SCREENING, FLUID THIN PREP GYNJennifer Juan Hanks, Laboratory DirectorPatient ID #: [id number] of Report: 03/30/2017Date of Procedure: 03/26/2017Date of Receipt: 03/27/2017Submitted by: JUDIE MCLAINLocation: Diagnostic interpretation performed at [facility], [address] [place] [address].The Pap Smear is a screening test for cervical cancer. False negativeresults occur with all screening tests, emphasizing the need forrescreening at recommended intervals, and clinical correlation. Normal [facility] Comment on above: Performed By: #### C ####See report for performing lab information. Vital Signs Date Time Vital Sign Value Performing Clinician Facility 07-13-2022 12:00-0500 Body height Tex Argueta Other [facility] Other 07-13-2022 12:00-0500 Body mass index (BMI) [Ratio] 34.6 kg/m2 Tex Argueta Other [facility] Other 07-13-2022 12:00-0500 Body weight 85.82 kg Txe Argueta Other [facility] Other 07-13-2022 12:00-0500 Diastolic blood pressure 79 mm[Hg] Tex Argueta Other [facility] Other 07-13-2022 12:00-0500 Respiratory rate 18 /min Tex Valadezdiff Other [facility] Other 07-13-2022 12:00-0500 SaO2% (BldA) [Mass fraction] 99 % Tex Argueta Other [facility] Other 07-13-2022 12:00-0500 Systolic blood pressure 154 mm[Hg] Tex Valadezdiff Other [facility] Other 07-12-2022 15:48-0500 Blood Pressure Location [facility] 07-12-2022 15:48-0500 Diastolic blood pressure 88 mm[Hg] [facility] 07-12-2022 15:48-0500 Heart rate 80 /min Jud [employer] [facility] [place] 07-12-2022 15:48-0500 Respiratory rate 16 /min ZetrOZL [facility] [place] 07-12-2022 15:48-0500 Systolic blood pressure 128 mm[Hg] Jud NILL [employer] [facility] [place] Encounters Encounter Date Encounter Type Care Provider Facility Start: 09-08-2024 ambulatory MD Manolo Ruiz [facility] ity:[facility] [place] Start: 04-07-2024 End: 04-07-2024 ambulatory MD Manolo Ruiz Facility[facility] Start: 10-08-2023 End: 10-08-2023 ambulatory MD Manolo Ruiz Facility:[facility] Start: 2023 End: 2023 ambulatory MD Manolo Ruiz Facility:[facility] Start: 07-11-2023 End: 07-11-2023 ambulatory MD Manolo Ruiz Facility:[facility] Start: 05-15-2023 End: 05-15-2023 ambulatory MD Manolo Ruiz Facility[facility] Sridevi yip Start: 05-09-2023 End: 05-09-2023 [facility] Start: 09-01-2022 Encounter for preprocedural laboratory examination DR JUD MONTEIRO [facility] Start: 08-30-2022 End: 08-30-[address] JUD MONTEIRO Facility:[facility] Start: 08-28-2022 End: 08-29-[address] JUD MONTEIRO Facility:[facility] Start: 08-28-2022 End: 08-29-2022 Encounter for preprocedural laboratory examination DR JUD MONTEIRO Facility:[facility] Start: 07-13-2022 End: 07-14-2022 ambulatory Judie Mclain [facility] Other Start: 07-13-2022 Nutrition therapy Tex Argueta [facility] Start: 07-12-2022 End: 07-12-2022 Patient encounter procedure Jud MONTEIRO [facility] Start: 06-20-2022 End: 06-21-[address] JUDIE MCLAIN Facility:[facility] Start: 06-07-2022 End: 06-07-[address] DAMEON RUSS Facility:[facility] Start: 11-18-2021 End: 11-19-[address] DOSHI LISTED REQUEST Facility: Procedures Date Procedure Procedure Detail Performing Clinician Vaginal hysterectomy Jud MONTEIRO Payers Date Payer Category Payer Self-pay 1970 Unknown [id number] 2.16.84 [id number] 1970 Unknown [id number] .16.84 [id number] 1970 Unknown [id number] .16.84 [id number] 1970 Unknown [id number] .16.84 [id number] 1970 Unknown [id number] 2.16.8 [id number] 1970 Unknown [id number] 2.16.8 [id number] 1970 Unknown [id number] 2.16.8 [id number] 1970 Unknown [id number] 2.16.8 [id number] 1970 Unknown [id number] 2.16.8 [id number] 1970 Unknown [id number] 2.16.8 [id number] 1970 Unknown [id number] 2.16.8 [id number] 1961 Self-pay [id number] 1961 Unknown [id number] 2. [id number] Unknown [id number] 2.16.84 [id number] Unknown [id number] 2.16.8 [id number] Social History Date Type Detail Facility Start: 07-12-2022 Tobacco smoking status Never s moked tobacco (finding) [facility] Tobacco smoking status Never [facility] Sex Assigned At Female [facility] Start: 1970 Sex Assigned At Female [facility] Functional Status Date Assessment Result Facility 07-12-2022 Functional Status N/A [facility] Clinical Note 04-07-2024 Note Date & Type Note Facility 04-07-2024 Note Patient Education Nutrition BMI for Adults What is BMI? Body mass index (BMI) is a number that is calculated from a person's weight and height. BMI can help estimate how much of a person's weight is composed of fat. BMI does not measure body fat directly. Rather, it is an alternative to procedures that directly measure body fat, which can be difficult and expensive. BMI can help identify people who may be at higher risk for certain medical problems. What are BMI measurements used for? BMI is used as a screening tool to identify possible weight problems. It helps determine whether a person is obese, overweight, a healthy weight, or underweight. BMI is useful for: ? Identifying a weight problem that may be related to a medical condition or may increase the risk for medical problems. ? Promoting changes, such as changes in diet and exercise, to help reach a healthy weight. BMI screening can be repeated to see if these changes are working. How is BMI calculated? BMI involves measuring your weight in relation to your height. Both height and weight are measured, and the BMI is calculated from those numbers. This can be done either in [place] or metric measurements. Note that charts and online BMI calculators are available to help you find your BMI quickly and easily without having to do these calculations yourself. To calculate your BMI in [place] measurements: 1. Measure your weight in pounds (lb). 2. Multiply the number of pounds by 703. ? For example, for a person who weighs 180 lb, multiply that number by 703, which equals 126,540. 3. Measure your height in inches. Then multiply that number by itself to get a measurement called inches squared. ? For example, for a person who is 70 inches tall, the inches squared measurement is 70 inches x 70 inches, which equals 4,900 inches squared. 4. Divide the total from step 2 (number of lb x 703) by the total from step 3 (inches squared): 126,540 ? 4,900 = 25.8. This is your BMI. To calculate your BMI in metric measurements: 1. Measure your weight in kilograms (kg). 2. Measure your height in meters (m). Then multiply that number by itself to get a measurement called meters squared. ? For example, for a person who is 1.75 m tall, the meters squared measurement is 1.75 m x 1.75 m, which is equal to 3.1 meters squared. 3. Divide the number of kilograms (your weight) by the meters squared number. In this example: 70 ? 3.1 = 22.6. This is your BMI. What do the results mean? BMI charts are used to identify whether you are underweight, normal weight, overweight, or obese. The following guidelines will be used: ? Underweight: BMI less than 18.5. ? Normal weight: BMI between 18.5 and 24.9. ? Overweight: BMI between 25 and 29.9. ? Obese: BMI of 30 or above. Keep these notes in mind: ? Weight includes both fat and muscle, so someone with a muscular build, such as an athlete, may have a BMI that is higher than 24.9. In cases like these, BMI is not an accurate measure of body fat. ? To determine if excess body fat is the cause of a BMI of 25 or higher, further assessments may need to be done by a health care provider. ? BMI is usually interpreted in the same way for men and women. Where to find more information For more information about BMI, including tools to quickly calculate your BMI, go to these websites: ? Centers for Disease Control and Prevention: www.cdc.gov ? [place] Heart Association: www.heart.org ? National Heart, Lung, and Blood [place]: www.nhlbi.nih.gov Summary ? Body mass index (BMI) is a number that is calculated from a person's weight and height. ? BMI may help estimate how much of a person's weight is composed of fat. BMI can help identify those who may be at higher risk for certain medical problems. ? BMI can be measured using [place] measurements or metric measurements. ? BMI charts are used to identify whether you are underweight, normal weight, overweight, or obese. This information is not intended to replace advice given to you by your health care provider. Make sure you discuss any questions you have with your health care provider. Document Revised: 05/12/2020 Document Reviewed: 03/19/2020 [employer] Patient Education ? 2022 [employer]. [facility] Clinical Note 08-30-2022 Note Date & Type [...] 10 years. CC: Patient's family physician. [facility] Evaluation note 07-13-2022 Note Date & Type Note Facility 07-13-2022 Evaluation note Encounter Date Diagnosis Assessment Notes Jul, Prediabetes (ICD-10 - R73.09) Jul, Abnormal weight gain (ICD-10 - R63.5) Jul, Hypertension (ICD-10 - I10) Jul, Mixed hyperlipidemia (ICD-10 - E78.2) Jul, Metabolic syndrome X (ICD-10 - E88.81) Jul, Obesity (BMI 30.0-34.9) (ICD-10 - E66.9) [facility] Other Evaluation + Plan note Note Date & Type Note Facility Evaluation + Plan note No data available for this section General [facility] [place] Evaluation note Note Date & Type Note Facility Evaluation note No assessment information availa [facility] Work Phone: History general Narrative - Reported Note Date & Type Note Facility History general Narrative - Reported Type Medical History HTN Medical History Hysterectomy Surgical History hysterectomy 2017 Hospitalization History see above [facility] Other Hospital Discharge instructions Note Date & Type Note Facility Hospital Discharge instructions No data available for this section [facility] note Note Date & Type Note Facility Progress note No data available for this section General Surgery [place] Summary Purpose Family History No Family History Records FoundNo Family History Records FoundNo Family History Records FoundNo Family History Records Found Advance Directives No Advanced Directives Records FoundNo Advanced Directives Records FoundNo Advanced Directives Records FoundNo Advanced Directives Records Found Additional Source Comments INFORMATION SOURCE (unrecogn ized section and content) DATE CREATED AUTHOR 02/27/2018 [facility] DATE CREATED AUTHOR AUTHOR'S ORGANIZ ATION 09/01/2022 [facility] DATE CREATED AUTHOR AUTHOR'S ORGANIZ ATION 01/10/2023 [facility] DATE CREATED AUTHOR AUTHOR'S ORGANIZ ATION 04/08/2024 [facility] Patient Care team informatio n (unrecognized section and content) Personnel Name: RAYNE ALEXANDER, JUDIE Cobos Address: Address: [address] [place] [id number] REASON FOR VISIT (unrecogniz ed section and [...] BE BASED ON THE PRIMARY CLINICAL RECORDS. [employer] provides no warranty or guarantee of the accuracy or completeness of information in this document.
== END 2024-06-27 08:20 | disposition home or self-care (01) ==
LOC: MAMMO 08:19
PROVIDERS: PCP Family Medicine; Visit Provider Family Medicine
DX: Z12.31 Encounter for screening mammogram for malignant neoplasm of breast (principal); Z80.3 Family history of malignant neoplasm of breast
CPT/HCPCS: 77063; 77067

== ENCOUNTER 2025-07-01 07:14 | Outpatient (OUT) | payer OTHER, SELFPAY ==
--- NOTE | 2025-07-01 07:17 | MM_ITS ---
Patient Name: SHARYN BARRY MR#: [id number] : 1970 Exam Date: 07/01/2025 Ordering Doctor: MAREN DWYER . RADIOLOGY REPORT PROCEDURE: MM TOMOSYNTHESIS SCREENING BI COMPARISON: MM TOMOSYNTHESIS SCREENING BI, 06/27/2024. MM TOMOSYNTHESIS SCREENING BI, 06/26/2023. MG MAMM SCREEN 3D ALFONSO CAD, 06/20/2022. MG MAMM ALFONSO SCRN W CAD DIG, 05/07/2013. INDICATIONS: Screening Calculator Name NCI Breast Cancer Risk Assessment Tool 5 Year Breast Cancer Risk 2.70% Lifetime Breast Cancer Risk 16.60% Personal Breast Cancer No Personal Ovarian Cancer No Treatments None Family Cancers Mother with breast cancer at age 74. LOCATION: [facility] BREAST COMPOSITION: There are scattered areas of fibroglandular density. FINDINGS: RIGHT BREAST: No significant suspicious finding. LEFT BREAST: No significant suspicious finding. DIAGNOSTIC CATEGORY 1--NEGATIVE. RECOMMENDATIONS: ROUTINE MAMMOGRAM AND CLINICAL EVALUATION IN 12 MONTHS. Dictated by: Gutierrez Ramey DO on 07/01/2025 at 10:40 Approved by: Gutierrez Ramey DO on 07/01/2025 at 11:25
--- OUTSIDE RECORDS SUMMARY | 2025-07-01 07:17 | XMS_ITS | Clinical Summary ---
Author Organization [facility] Address [address] [place] [address] Care Team Providers Care Hazardous Material Technician Name Role Phone Unavailable Primary Care Provider Unavailabl e Social History Tobacco UseTypesPacks/DayYears UsedDateSmoking Tobacco: Never Assessed CommentsUnknownSex and Gender InformationValueDate RecordedSex Assigned at Not on fileLegal MvqQeyxxv33/15/2023 7:29 PM EDTGender IdentityNot on fileSexual OrientationNot on file Plan of Treatment Not on file
--- OUTSIDE RECORDS SUMMARY | 2025-07-01 07:17 | XMS_ITS | CCD ---
Author Organization [facility] CliniSywy Care Team Providers Care Inspector Air Carrier Name Role Phone JUDIE ARCOS Primary Care Physician [phone] Tex Argueta PETRONA, DR XIAO Admitting Unavailable KARASIK, DR XIAO Attending Unavailable ARCOS, DR JUDIE Cobos Primary Care Unavailable KARASIK, DR XIAO Consulting Unavailable NILL, DR RENNER Admitting Unavailable NILL, DR RENNER Attending Unavailable ARCOS, DR JUDIE Cobos Primary Care Unavailable NILL, DR RENNER Consulting Unavailable REQUEST, DR DOSHI LISTED Admitting Unavaila ble REQUEST, DR DOSHI LISTED Attending Unavaila ble ARCOS, DR JUDIE Cobos Primary Care Unavailable REQUEST, DR DOSHI LISTED Consulting Unavaila ble NILL, DR RENNER Admitting Unavailable NILL, DR RENNER Attending Unavailable ARCOS, DR JUDIE Cobos Primary Care Unavailable NILL, DR RENNER Consulting Unavailable GEMBUS, JB Consulting Unavailable ARCOS, DR JUDIE Cobos Admitting Unavailable ARCOS, DR JUDIE Cobos Attending Unavailable ARCOS, DR JUDIE Cobos Primary Care Unavailable KARASIK, DR XIAO Consulting Unavailable ZIEBER, DR JORGE Morrell Consulting Unavailable Rayne, Judie Cobos Primary Care Unavailable Tex Argueta Attending Unavailable Tex Argueta Admitting Unavailable SMITH, TRIPP A Admitting Unavailable SMITH, TRIPP A Attending Unavailable SMITH, TRIPP A Attending Unavailable Manolo Ruiz Attending Unavailable Manolo Ruiz Attending Unavailable SMITH, TRIPP A Attending Unavailable SMITH, TRIPP A Admitting Unavailable SMITH, TRIPP A Attending Unavailable SMITH, TRIPP A Attending Unavailable Allergies Allergy ClassificationReported Allergen(s)Allergy TypeDate of OnsetReaction(s) Facility (3 sources)Ciprofloxacin; Translations: [ciprofloxacin]Drug AllergyItching (finding), Eruption of skin (disorder)[facility] [place] (3 sources)Penicillin; Translations: [penicillin]Drug AllergyEruption of skin (disorder), Itching (finding)[facility] [place] (3 sources)Sulfonamides (Antibiotic); Translations: [sulfa drugs]Drug allergy Eruption of skin (disorder), Itching (finding)[facility] [place] (1 source)Penicillin GDrug AllergyUnkImpactFloGowanda State Hospital [facility] Other (1 source)SulfacetamideDrug AllergyVIAPEvergreenHealth Monroe [facility] Other (1 source)CiprofloxacinDrug [id number] [facility] Repository (1 source)PenicillinsDrug allergy (disorder)[phone] [facility] Repository (1 source)Sulfonamides (Antibiotic)Drug allergy (disorder)[id number] [facility] Repository Medications Current Medications MedicationDrug Class(es)DatesSig (Normalized)Sig (Original)0.5 ML semaglutide 0.5 MG/ML Auto-Injector [Wegovy] (1 source)Start: 33-61-2656drgaux 0.5 mL by subcutaneous injection every week Wegovy 0.25 MG/0.5ML 0.5 ml Subcutaneous Weekly for 30 days Jul, Active Apple Cider Vinegar (1 source)Apple Cider Vinegar ActiveBiotin (1 source)Biotin Activebisoprolol fumarate 2.5 mg / hydroCHLOROthiazide 6.25 mg oral tablet (2 sources)Thiazide Diuretic, beta-Adrenergic BlockerStart: 99-62-5709reav 1 tablet by mouth once dailybisoprolol-hydrochlorothiazide 2.5 mg-6.25 mg Tab 1 tab(s), Oral, Daily, Refill(s) 0 Start Date: 07/07/22 Status: Ordered cholecalciferol 0.05 mg oral tablet (1 source)Vitamin Dtake 1 tablet by mouth every twenty-four hoursVitamin D 50 MCG (1999) 1 tablet Orally Once a day Activeestradiol 1 mg oral tablet (2 sources)EstrogenStart: 18-31-0506zyaj 1 tablet by mouth once dailyestradiol 1 mg oral tablet 1 mg = 1 tab(s), Oral, Daily, Refills(s) 0 Start Date: 07/07/22 Status: Orderedferrous sulfate 325 mg oral tablet (1 source)take 1 tablet by mouth every twenty-four hoursIron 325 (65 Fe) MG 1 tablet Orally Once a day ActiveFish Oils (1 source)take 1 capsule by mouth once dailyFish Oil 1200 MG 1 capsule Orally Once a day ActiveMulti For Her - (1 source)Multi For Her - as directed Orally ActiveVitamin C 500 MG (1 source)take 1 tablet by mouth once dailyVitamin C 500 MG 1 tablet Orally Once a day Active Problems Problem ClassificationProblemDateDocumented DateEpisodic/ChronicDiabetes mellitus without complication (2 sources)Prediabetes; Translations: [Other abnormal glucose]EpisodicDigestive congenital anomalies (1 source)Other specified congenital malformations of intestine; Translations: [OTH SPEC CONGEN MALFORM INTESTINE]Onset: 57-84-2074NkkcvxeMeqejwsid of lipid metabolism (2 sources)Mixed hyperlipidemia; Translations: [Mixed hyperlipidemia]Chronic Essential hypertension (4 sources)Hypertensive disorder; Translations: [Essential (primary) hypertension]Onset: [id number] and screening for infectious disease (1 source)Encounter for screening for human papillomavirus (HPV); Translations: [ENC SCREENING HUMAN PAPILLOMAVIRUS]Onset: 67-26-2379YxjjkgkvApmak bone disease and musculoskeletal deformities (1 source)Other specified disorders of bone density and structure, unspecified site; Translations: [OTH D/O BONE DEN STRUCT UNS SITE]Onset: 03-86-9112Apcdijke Other nutritional; endocrine; and metabolic disorders (1 source)Body mass index 30+ - -39-2420QyjtrafGlucc nutritional; endocrine; and metabolic disorders (1 source)Obesity; Translations: [Obesity, unspecified]ChronicOther nutritional; endocrine; and metabolic disorders (1 source)Metabolic syndrome X; Translations: [Metabolic syndrome]ChronicOther nutritional; endocrine; and metabolic disorders (1 source)Metabolic syndromeChronicOther nutritional; endocrine; and metabolic disorders (1 source)Obesity, unspecifiedChronicOther nutritional; endocrine; and metabolic disorders (1 source)Abnormal weight gainEpisodicOther screening for suspected conditions (not mental disorders or infectious disease) (9 sources)Screening for malignant neoplasm of colon done; Translations: [Encounter for screening for malignant neoplasm of colon]Onset: 06-07-2022 EpisodicResidual codes; unclassified (1 source)Acquired absence of both cervix and uterus; Translations: [ACQUIRED ABSENCE BOTH CERVIX AND UTERUS]Onset: 41-19-4632VqlrhhztDwbzuqhr codes; unclassified (1 source)Asymptomatic menopausal state; Translations: [ASYMPTOMATIC MENOPAUSAL STATE]Onset: 49-94-1689LpkxgvsbZxfumzoz codes; unclassified (1 source)Family history of malignant neoplasm of breast; Translations: [FAMILY HX MALIG NEOPLASM OF BREAST]Onset: 89-55-7172SgiusjcvHwumejcfsdmp (1 source)Patient encounter -59-6956Gdlkwjxczxgu (1 source)CONTACT W/AND (SUSP) EXPOS COVID-19; Translations: [CONTACT W/AND (SUSP) EXPOS COVID-19]Onset: 41-59-4284Bsucaazituwo (1 source)Dietary counseling and surveillance; Translations: [Dietary counseling and surveillance]Onset: 07-13-2022 Results Test NameValueInterpretationReference RangeFacilityFami Medicine Office/Clinic Noteon 60-84-4647Esmxgd Medicine Office/Clinic NoteFamedical center of [facility] [place] Medicine Office/Clinic Note Chief Complaint The patient presents for management of elevated cholesterol and weight concerns. HPI Staff Patient presents to discuss recent lab results. History of Present Illness 54-year-old female presenting with hyperlipidemia and weight management concerns. The patient's cholesterol level was noted to be elevated at 261 mg/dL, with triglycerides at 259 mg/dL, both above the desired levels. The patient has been advised to start atorvastatin 10 mg to manage her cholesterol levels. Regarding weight management, the patient has a BMI in the range of 29.0-29.9. She was previously unable to start Adipex due to her BMI not being high enough, but now it is considered appropriate. Thepatient plans to travel to [place] from August through November, which may affect her follow-up schedule. Review of Systems PHQ Score Initial Depression Screen Score: 0 SCORE Constitutional: no fever, no chills, no sweats, no weakness Respiratory: no shortness of breath, no cough, no orthopnea, no wheezing Cardiovascular: no chest pain, no palpitations, no edema Additional ROS info: Except as noted in the above Review of Systems and in the History of Present Illness all other systems have been reviewed and are negative or noncontributory. Physical Exam Vitals & Measurements T: 36.4 ???C(Temporal Artery) HR: 86(Peripheral) RR: 18 BP: 132/84 SpO2: 99% HT: 160.0 cm HT: 63 in WT: 164.024 lb WT: 74.4 kg BMI: 29.06 General: alert, no acute distress Cardiovascular: regular rate and rhythm, normal peripheral perfusion Respiratory: Lungs CTA, respirations non labored Extremities: no deformity, no trauma Neurological: oriented x 4, LOC appropriate for age speech normal Assessment/Plan 1. Hyperlipidemia (E78.5: Hyperlipidemia, unspecified) - Reviewed laboratory results with patient - Initiate atorvastatin 10 mg daily to manage elevated cholesterol levels. - Monitor for potential side effects such as leg pain, and consider CoQ10 supplementation if needed. - Reviewed laboratory results with patient - Encourage lowfat diet and daily exercise - F/U in 4 weeks Ordered: atorvastatin, 10 mg = 1 tab(s), Oral, Daily, # 90 tab(s), Refills(s) 0, Pharmacy: [id number], 160, cm, 05/08/25 9:20:00 EDT, Height/Length Dosing, 74.4, kg, 05/08/25 9:20:00 EDT, Weight Dosing 2. Encounter for weight management (Z76.89: Persons encountering health services in other specifiedcircumstances) - Start Adipex with monthly follow-ups for the first three months to monitor progress. - Aim for a 10% weight loss, approximately 16 pounds, over three months. - Medication Agreement & UDS completed today in the office - OARRS reviewed and found to be appropriate - F/U in 4 weeks Ordered: phentermine, 37.5 mg = 1 tab(s), Oral, Daily, # 30 tab(s), Refills(s) 0, [facility]acy: [id number], 160, cm, 05/08/25 9:20:00 EDT, Height/Length Dosing, 74.4, kg, 05/08/25 9:20:00 EDT, Weight Dosing 3. BMI 29.0-29.9,adult (Z68.29: Body mass index [BMI] 29.0-29.9, adult) - Start Adipex with monthly follow-ups for the first three months to monitor progress. - Aim for a 10% weight loss, approximately 16 pounds, over three months. Ordered: phentermine, 37.5 mg = 1 tab(s), Oral, Daily, # 30 tab(s), Refills(s) 0, Pharmacy: [facility]/pharmacy #[id number], 160, cm, 05/08/25 9:20:00 EDT, Height/Length Dosing, 74.4, kg, 05/08/25 9:20:00 EDT, Weight Dosing 4. Non-smoker (Z78.9: Other specified health status) Encouraged to continue as a non-smoker Follow-up With When Contact Information TRIPP MTZ CNP, FAM Within [address] [place] [phone] [facility] (1) Additional Instructions: Weight management Patient Education Fat and Cholesterol Restricted Eating Plan, Dgiv-rw-Jzck Problem List/Past Medical History Ongoing Excessive dietary caloric intake Hair loss Nonsmoker Overweight (BMI 25.0-29.9) Varicose vein of leg Historical No qualifying data Procedure/Surgical History Vaginal hysterectomy. Medications Adipex-P 37.5 mg Tab, 37.5 mg= 1 tab(s), Oral, Daily atorvastatin 10 mg Tab, 10 mg= 1 tab(s), Oral, Daily Allergies Cipro (Itching, Rash) penicillin (Rash, Itching) sulfa drugs (Rash, Itching) Social History Alcohol - Denies Alcohol Use, 07/12/2022 Never., 09/07/2024 Substance Abuse - Denies Substance Abuse, 07/12/2022 Never., 09/07/2024 Tobacco Never (less than 100 in lifetime) Tobacco Use:. Never Smokeless Tobacco Use:. Household tobacco concerns: No. Yes, 05/08/2025 Family History Diabetes mellitus type 2: Father. Heart disease: Mother and Father. Hyperlipidemia: Father. Hypertension: Father. Primary malignant neoplasm of female breast: Mother. Immunizations Vaccine Date Status Comments zoster vaccine, inactivated 12/09/2024 Recorded zoster vaccine, inactivated 07/21/2024 Recorded influenza virus vaccine, inactivated - Not Given Patient Refus (more content not included)...[facility]ison HealthComment on above:Result Comment: Electronically Signed By: TRIPP MTZ CNP\valentina\Date and Time Signed: 05/08/25 10:16 EDTCMPon 86-19-4771Xiocvdq [Mass/Vol]4.7 g/dLNormal3.3-5.0Magruder HospitalComment on above:Performed By: #### [id number] #### [facility] [address], [place] [address]Ozyrpeg/Globulin [Mass ratio]1.5 {ratio}Normal1.1-2.2FTwin City HospitalComment on above:Performed By: #### [id number] #### [facility] [address], [place] [address]Sld Phos74 Int._Unit/DZlthbi59-78AxpvsqMagruder Hospital Comment on above:Performed By: #### [id number] #### [facility] [address], [place] [address]IPJ26 Int._Unit/LNormal6-46Mag[facility]uder HospitalComment on above:Performed By: #### [id number] #### [facility] [address], [place] [address]Bikle gap [Moles/Vol]11 mmol/LNormal6-16Magruder HospitalComment on above:Performed By: #### [id number] #### [facility] [address], [place] [address]FJA64 Int._Unit/LNormal5-43Mag[facility]uder HospitalComment on above:Performed By: #### [id number] #### [facility] [address], [place] [address]Fxju Total0.6 mg/dLNormal0.0-1.1FTwin City Hospital Comment on above:Performed By: #### [id number] #### [facility] [address], [place] [address]GHU/Creat Ratio19 No FndfgSuwjfz02-92JgwkeyMagruder HospitalComment on above:Performed By: #### [id number] #### [facility] [address], [place] [address]Xrnxunt [Mass/Vol]10.0 mg/dLNormal8.9-11.1FTwin City HospitalComment on above:Performed By: #### [id number] #### [facility] [address], [place] [address]Esgjnmya [Moles/Vol]104 mmol/VEubiqo403-923WwmntcMagruder HospitalComment on above:Performed By: #### [id number] #### [facility] [address], [place] [address]NK2 [Moles/Vol]29 mmol/TBpycsh99-33RgwlrbMagruder Hospital Comment on above:Performed By: #### [id number] #### [facility] [address], [place] [address]Ipulbkodhq [Mass/Vol]0.7 mg/dLNormal0.5-1.3FTwin City HospitalComment on above:Performed By: #### [id number] #### [facility] [address], [place] [address]Byugfgxy (S) [Mass/Vol]3.1 g/dLNormal1.4-4.0Magruder HospitalComment on above:Performed By: #### [id number] #### [facility] [address], [place] [address]Xsramwa [Mass/Vol]103 mg/hFSujcdk62-447PrzbibMagruder HospitalComment on above:Performed By: #### [id number] #### [facility] [address], [place] [address]Fvxrydqeh [Moles/Vol]4.8 mmol/LNormal3.5-5.3FTwin City HospitalComment on above:Performed By: #### [id number] #### [facility] [address], [place] [address]Yvoqxgl [Mass/Vol]7.8 g/dLNormal6.0-7.8Magruder HospitalComment on above:Performed By: #### [id number] #### [facility] [address], [place] [address]Xjbhxx [Moles/Vol]139 mmol/SVegwan318-164TcdhvqMagruder HospitalComment on above:Performed By: #### [id number] #### [facility] [address], [place] [address]Yhmh nitrogen [Mass/Vol]13 mg/dLNormal5-21Magruder HospitalComment on above:Performed By: #### [id number] #### [facility] [address], [place] [address]Ndfnrv Medicine Office/Clinic Noteon 33-71-0803Nwvqdb Medicine Office/Clinic NoteFamedical center of [facility] [place] Medicine Office/Clinic Note Chief Complaint 3m Weight Management Follow up The patient presents for weight management and evaluation for Adipex prescription. [facility] Staff Former Dr Ruiz pt. Presenting today for 3m weight management follow up. Started on phentermine Only taking QOD at [facility] Sleeping well:Yes, 6-8 hours Chest pain:No Tremors:No Headaches:No Heart fluttering:No Blurred Vision:No Starting Weight: 168.874lbs Weight last visit: 154.76lbs Weight this visit: 160lbs Did go 1-2m without taking med. Re started on 04/03/25. Has been taking every day. History of Present Illness 54-year-old female presenting with weight management concerns. She reports a BMI of 28, which is below the threshold for Adipex prescription unless accompanied by other conditions such as high cholesterol or high blood sugar. Her blood pressure was noted to be elevated during a blood donation, but home measurements and today's reading were within normal limits. The patient has a history of nighttime pruritus, primarily affecting her arms. This symptom predates her use of Adipex and has been managed with cortisone and Benadryl. She suspects dehydration may contribute to her symptoms due to inadequate water intake. The patient underwent a hysterectomy several years ago and does not take hormone replacement therapy. She adheres to annual mammograms but has not completed one this year as this is due in June. Review of Systems PHQ Score Initial Depression Screen Score: 0 SCORE - Cardiovascular: Reports elevated blood pressure during blood donation. Denies persistent hypertension. - Dermatological: Reports nighttime pruritus on arms. Denies other skin changes. - Endocrine: Denies symptoms of thyroid dysfunction. Physical Exam Vitals & Measurements T: 36.8 ???C(Oral) HR: 98(Peripheral) RR: 18 BP: 126/80 SpO2: 99% HT: 63 in HT: 160 cm WT: 160.937 lb WT: 73 kg BMI: 28.52 General: alert, no acute distress Cardiovascular: regular rate and rhythm, normal peripheral perfusion Respiratory: Lungs CTA, respirations non labored Extremities: no deformity, no trauma Neurological: oriented x 4, LOC appropriate for age speech normal Assessment/Plan 1. Encounter for weight management (Z76.89: Persons encountering health services in other specifiedcircumstances) - Discussed parameters for Adipex prescritption - Discussed the possibility of prescribing Adipex if lab results indicate high cholesterol or bloodsugar. - Recommended obtaining lab work to assess cholesterol and blood sugar levels. - Awaiting laboratory results 2. Screening for diabetes mellitus (Z13.1: Encounter for screening for diabetes mellitus) Ordered: Comprehensive Metabolic Panel 3. Screening for lipid disorders (Z13.220: Encounter for screening for lipoid disorders) Ordered: Lipid Panel 4. Screening for thyroid disorder (Z13.29: Encounter for screening for other suspected endocrine disorder) Ordered: TSH With T4fr Reflex 5. Overweight (BMI 25.0-29.9) (E66.3: Overweight) - Discussed the possibility of prescribing Adipex if lab results indicate high cholesterol or bloodsugar. - Recommended obtaining lab work to assess cholesterol and blood sugar levels. 6. Nonsmoker (Z78.9: Other specified health status) Encouraged to continue as a non-smoker 7. BMI 28.0-28.9,adult (Z68.28: Body mass index [BMI] 28.0-28.9, adult) BMI 28.52 Follow-up With When Contact Information TRIPP MTZ CNP, FAM In 5 months 10/01/2025 EST [address] [place] [address] Business (1) Additional Instructions: Well adult Patient Education Exercising to Lose Weight Problem List/Past Medical History Ongoing BMI 28.0-28.9,adult Excessive dietary caloric intake Hair loss Nonsmoker Overweight (BMI 25.0-29.9) Varicose vein of leg Historical No qualifying data Procedure/Surgical History Vaginal hysterectomy. Medications Adipex-P 37.5 mg oral capsule, 37.5 mg= 1 cap(s), Oral, Daily Allergies Cipro (Itching, Rash) penicillin (Rash, Itching) sulfa drugs (Rash, Itching) Social History Alcohol - Denies Alcohol Use, 07/12/2022 Never., 09/07/2024 Substance Abuse - Denies Substance Abuse, 07/12/2022 Never., 09/07/2024 Tobacco Never (less than 100 in lifetime) Tobacco Use:. Never Smokeless Tobacco Use:. Household tobacco concerns: No. Yes, 05/01/2025 Family History Diabetes mellitus type 2: Father. Heart disease: Mother and Father. Hyperlipidemia: Father. Hypertension: Father. Primary malignant neoplasm of female breast: Mother. Immunizations Vaccine Date Status Comments zoster vaccine, inactivated 07/21/2024 Recorded influenza virus vaccine, inactivated - Not Given Patient Refuses SARS-CoV-2 (COVID-19) mRNA BNT-162b2 vax 09/16/2021 RecordedNormalMagruder HospitalComment on above:Result Comment: Electronically Signed By: TRIPP MTZ CNP\.br\Date and Time Signed: 05/01/25 11:23 EDTLipid Panelon 00-70-8396Hdxqbaakfqz [Mass/Vol]261 mg/jLClhq479-555OvbplgMagruder Hospital Comment on above:Performed By: #### [id number] #### [facility] [address], [place] [address]Ihlocxplktl in HDL [Mass/Vol]58 mg/dLInvalid Interpretation CodeMagruder HospitalComment on above:Result Comment: '>= 60 LOW RISK' '<= 40 HIGH RISK'Performed By: #### [id number] #### [facility] [address], [place] [address]Zuxklnmxhuf in LDL [Mass/Vol]168 mg/dLHigh<=129Magruder HospitalComment on above:Performed By: #### [id number] #### [facility] [address], [place] [address]Xfslpasazeu in VLDL [Mass/Vol]52 mg/dLHigh7-40Magruder HospitalComment on above:Performed By: #### [id number] #### [facility] [address], [place] [address]Nkgnftpnxzos [Mass/Vol]259 mg/dLHigh<=149Magruder HospitalComment on above:Performed By: #### [id number] #### [facility] [address], [place] [address]CDP With T4fr Reflexon 97-80-0893LGT Qn1.54 m[IU]/LNormal 0.34-5.60Magruder HospitalComment on above:Performed By: #### [id number] #### [facility] [address], [place] [address]hKAUbf 72-86-4338dGYY582 mL/min/1.73 a9Jcjgay>=59Magruder HospitalComment on above:Performed By: #### [id number] #### [facility] [address], [place] [address]Yeycnwikqs Visit Summaryon 28-27-9453Nlcnrvslbr Visit Summary Ambulatory Visit Summary SHARYN BARRY :1970 Visit Date:12/30/2024 Ambulatory Visit Instructions Your Diagnosis Overweight (BMI 25.0-29.9) Nonsmoker BMI 27.0-27.9,adult Your Care Team Attending Physician - Manolo Ruiz MD Primary Care Physician - Manolo Ruiz MD This Is Your Medications List phentermine (Adipex-P 37.5 mg oral capsule) Procedures Performed Vaginal hysterectomy. Discharge Vitals Temperature (Tympanic) 36.8 ???C Heart Rate (Peripheral) 70 Respiratory Rate 18 Blood Pressure 132/84 Height 160 cm Height 63 in Weight 70.2 kg Weight 154.764 lb BMI 27.42 What to do next Scheduled Follow-Up Appointments Sunday 9:20 AM EDT With: Manolo Ruiz MD Where: [address] [address]- Medications What How Much When Instructions Unchanged phentermine (Adipex-P 37.5 mg oral capsule) 1 Capsules By Mouth Every day BMI of 30 Allergies Cipro (Itching, Rash) penicillin (Rash, Itching) sulfa drugs (Rash, Itching) Problems Ongoing - Any problem that you are currently receiving treatment for. BMI 27.0-27.9,adult Excessive dietary caloric intake Hair loss Nonsmoker Overweight (BMI 25.0-29.9) Varicose vein of leg Patient Survey You may receive a survey via text or e-mail asking about your office visit. Please share your experience with us by completing your survey. We appreciate your feedback and thank you for choosing us for your care. [facility] Medicine Office/Clinic Noteon 58-93-5565Bzbfzg Medicine Office/Clinic NoteWrentham [facility] Medicine Office/Clinic Note Chief Complaint Weight Management HPI Staff Pt presents today for 2m weight management follow up Started on phentermine @ [facility]. Goal was to lose 8lbs. Sleeping well:Yes, 6-8 hours Chest pain:No Tremors:No Headaches:No Heart fluttering:No Blurred Vision:No Starting Weight: 168.874lbs Weight this visit: 154.76lbs. History of Present Illness See staff HPI. Review of Systems PHQ Score Initial Depression Screen Score: 0 SCORE Physical Exam Vitals & Measurements T: 36.8 ???C(Tympanic) HR: 70(Peripheral) RR: 18 BP: 132/84 SpO2: 99% HT: 63 in HT: 160 cm WT: 70.2 kg WT: 154.764 lb BMI: 27.42 General: alert, no acute distress ENMT: oral mucosa moist, Cardiovascular: regular rate and rhythm, normal peripheral perfusion Respiratory: Lungs CTA, respirations non labored Extremities: no deformity, no trauma Neurological: oriented x 4, LOC appropriate for age, CN II-XII intact, motor strength equal & normal bilaterally, speech normal Abdomen: Soft, Nontender, Non-distended, + BS Assessment/Plan 1. Excessive dietary caloric intake (R63.2: Polyphagia) Doing well. Healing goals. Patient is taking the Adipex every other day which is working great for her to keep her appetite suppressed. Will continue this way. Patient's goal is to be below a BMI of 25. This is due to patient getting anxious about her weight when it is above a normal BMI. Patient wants to have a good weight for her health sake. Ordered: phentermine, 37.5 mg = 1 cap(s), Oral, Daily, BMI of 30, # 30 cap(s), Refills(s) 0, Pharmacy: [facility]/pharmacy #[id number], 160, cm, 12/30/24 9:56:00 EDT, Height/Length Dosing, 70.2, kg, 12/30/24 9:56:00 EDT, Weight Dosing 2. Overweight (BMI 25.0-29.9) (E66.3: Overweight) Diet and exercise advised Ordered: phentermine, 37.5 mg = 1 cap(s), Oral, Daily, BMI of 30, # 30 cap(s), Refills(s) 0, Pharmacy: [facility]/pharmacy #[id number], 160, cm, 12/30/24 9:56:00 EDT, Height/Length Dosing, 70.2, kg, 12/30/24 9:56:00 EDT, Weight Dosing 3. Nonsmoker (Z78.9: Other specified health status) Please continue not to smoke 4. BMI 27.0-27.9,adult (Z68.27: Body mass index [BMI] 27.0-27.9, adult) BMI education given Ordered: phentermine, 37.5 mg = 1 cap(s), Oral, Daily, BMI of 30, # 30 cap(s), Refills(s) 0, Pharmacy: [facility]/pharmacy #[id number], 160, cm, 12/30/24 9:56:00 EDT, Height/Length Dosing, 70.2, kg, 12/30/24 9:56:00 EDT, Weight Dosing Follow-up No qualifying data available Problem List/Past Medical History Ongoing BMI 27.0-27.9,adult Excessive dietary caloric intake Hair loss Nonsmoker Overweight (BMI 25.0-29.9) Varicose vein of leg Historical No qualifying data Procedure/Surgical History Vaginal hysterectomy. Medications Adipex-P 37.5 mg oral capsule, 37.5 mg= 1 cap(s), Oral, Daily Allergies Cipro (Itching, Rash) penicillin (Rash, Itching) sulfa drugs (Rash, Itching) Social History Alcohol - Denies Alcohol Use, 07/12/2022 Never., 09/07/2024 Substance Abuse - Denies Substance Abuse, 07/12/2022 Never., 09/07/2024 Tobacco Never (less than 100 in lifetime) Tobacco Use:. Never Smokeless Tobacco Use:. Household tobacco concerns: No. Yes, 12/30/2024 Family History Diabetes mellitus type 2: Father. Heart disease: Mother and Father. Hyperlipidemia: Father. Hypertension: Father. Primary malignant neoplasm of female breast: Mother. Immunizations Vaccine Date Status Comments zoster vaccine, inactivated 07/21/2024 Recorded influenza virus vaccine, inactivated - Not Given Patient Refuses SARS-CoV-2 (COVID-19) mRNA BNT-162b2 vax 09/16/2021 RecordedNormalMagruder HospitalComment on above:Result Comment: Electronically Signed By: Joseph ALEXANDER, Manolo Chance\.br\Date and Time Signed: 12/30/24 10:32 EDTFamily Medicine Office/Clinic Noteon [id number] Medicine Office/Clinic NoteFamily Medicine Office/Clinic Note Chief Complaint Annual Wellness HPI Staff Pt presents today for annual wellness visit. Health Maintenance: Colonoscopy: 2021 Normal Dexa: 2021 Osteopenia Mammo: 06/27/24 Normal Pap: 2021 Normal Last Labs: due today Would like to discuss weight management options. Has taken Adipex in past. History of Present Illness Patient presents for weight concerns. Patient would like something to help with her weight. Patientdid fairly well last time we tried Adipex. Patient then was taken off of it and patient gained the weight back. Patient would like to go back and try to lose weight again. Review of Systems PHQ Score Initial Depression Screen Score: 0 SCORE Physical Exam Vitals & Measurements T: 36.2 ???C(Tympanic) HR: 84(Peripheral) RR: 18 BP: 136/80 SpO2: 98% HT: 63 in HT: 160 cm WT: 76.6 kg WT: 168.874 lb BMI: 29.92 General: alert, no acute distress ENMT: oral mucosa moist, Cardiovascular: regular rate and rhythm, normal peripheral perfusion Respiratory: Lungs CTA, respirations non labored Extremities: no deformity, no trauma Neurological: oriented x 4, LOC appropriate for age, CN II-XII intact, motor strength equal & normal bilaterally, speech normal Abdomen: Soft, Nontender, Non-distended, + BS Assessment/Plan 1. Excessive dietary caloric intake (R63.2: Polyphagia) Will do Adipex for the next 2 months. Will see the patient back at that time as she is going on vacation for a month. Goal is to lose 8 pounds and that 2 months. 2. BMI 29.0-29.9,adult (Z68.29: Body mass index [BMI] 29.0-29.9, adult) BMI education added 3. Overweight (BMI 25.0-29.9) (E66.3: Overweight) Diet and exercise advised 4. Nonsmoker (Z78.9: Other specified health status) Please continue not to smoke Orders: phentermine, 37.5 mg = 1 cap(s), Oral, Daily, BMI of 30, # 30 cap(s), Refills(s) 0, Pharmacy: [facility]/pharmacy #[id number], 160, cm, 09/08/24 8:36:00 EST, Height/Length Dosing, 76.6, kg, 09/08/24 8:36:00 EST, Weight Dosing Follow-up No qualifying data available Patient Education BMI for Adults Problem List/Past Medical History Ongoing BMI 29.0-29.9,adult BMI 33.0-33.9,adult Excessive dietary caloric intake Hair loss Nonsmoker Overweight (BMI 25.0-29.9) Varicose vein of leg Historical No qualifying data Procedure/Surgical History Vaginal hysterectomy. Medications Adipex-P 37.5 mg oral capsule, 37.5 mg= 1 cap(s), Oral, Daily Allergies Cipro (Itching, Rash) penicillin (Rash, Itching) sulfa drugs (Rash, Itching) Social History Alcohol - Denies Alcohol Use, 07/12/2022 Never., 09/07/2024 Substance Abuse - Denies Substance Abuse, 07/12/2022 Never., 09/07/2024 Tobacco Never (less than 100 in lifetime) Tobacco Use:. Never Smokeless Tobacco Use:. Household tobacco concerns: No. Yes, 09/08/2024 Family History Diabetes mellitus type 2: Father. Heart disease: Mother and Father. Hyperlipidemia: Father. Hypertension: Father. Primary malignant neoplasm of female breast: Mother. Immunizations Vaccine Date Status Comments zoster vaccine, inactivated 07/21/2024 Recorded influenza virus vaccine, inactivated - Not Given Patient Refuses SARS-CoV-2 (COVID-19) mRNA BNT-162b2 vax 09/16/2021 RecordedNoAnil [facility] Mid[facility] CampusComment on above:Result Comment: Electronically Signed By: Joseph ALEXANDER, Manolo Chance\.br\Date and Time Signed: 09/08/24 09:20 ESTCovid-19 PCR ([facility]) on 31-12-4914PWNT-CoV-2 (COVID-19) RNA LUÍS+probe Ql (Unsp spec)Not detected NormalNOT DETECTEDThe [facility] Hospital CompanyComment on above:Result Comment: This test is not yet approved or cleared by the [place] FDA. When there are no FDA-approved or cleared tests available, and other criteria are met, FDA can make tests available under an emergency access mechanism called an Emergency Use Authorization (EUA). The EUA for this test is supported by the Csr Technician of Health and Human Service's (HHS's) declaration [...] of clinical signs and symptoms consistent with SARS-CoV-2.Performed By: #### CVDTB #### [facility] [address] [place] [address] Dr. Nitin DanielleA1C HEMOGLOBINon 97-94-8215BqG3u (Bld) [Mass fraction]5.9 %[facility] Other HbA1c (Bld) [Mass fraction]on 68-09-8659A2F HEMOGLOBIN [facility] Other mg MAMM SCREEN 3D ALFONSO CADon 69-98-7749AW MAMM SCREEN 3D ALFONSO CADPatient: SHARYN BARRY Exam Date: 06/20/2022 : 1970 Gender:F Ordering : DR DAMEON RUSS . Admission #: [id number] Family : DR JUDIE ARCOS . Order #: [id number] CLICK HERE TO VIEW EXAM RADIOLOGY REPORT [...] breast cancer at age 72. LOCATION: [facility] BREAST COMPOSITION: Scattered areas fibroglandular density. FINDINGS: [...] by: Jorge Gee M.D. on 06/20/2022 at 15:57[facility] HospitalXR DEXA BONE DENSITYon 33-40-2471BV DEXA BONE DENSITYEXAMINATION: XR DEXA BONE DENSITY, 06/20/2022 10:48 AM [...] Electronically authenticated by: JORGE GEE Date: 2022-06-20 19:29[facility] HospitalPA ACOG PANEL 2: 30 to 65on 06-14-2022..NormalProMedica Fostoria Community Hospital on above:Result Comment: Performed at: BAPerformed By: #### [id number] #### [facility] [address] [place] [address] Dr. Nitin White Gdln ACOG Peqhgnk93-36MrhrtcAcrSamaritan HospitalComharbor oaks hospital on above:Performed By: #### [id number] #### [facility] [address] [place] [address] Dr. Nitin DanielleDIAGNOSIS:CommentOhioHealth Grant Medical Center on above: Result Comment: NEGATIVE FOR INTRAEPITHELIAL LESION OR MALIGNANCY. Performed at: BAPerformed By: #### [id number] #### [facility] [address] [place] [address] Dr. Nitin DanielleHPV AptimaNegativeNormalNegativeProMedica Fostoria Community Hospital on above:Result Comment: This nucleic acid amplification test detects fourteen high-risk HPV types (16,18,31,33,35,39,45,51,52,56,58,59,66,68) without differentiation. Performed at: =GPerformed By: #### [id number] #### [facility] [address] [place] [address] Dr. Nitin DanielleMethodology:CommentOhioHealth Grant Medical Center on above: Result Comment: This liquid based ThinPrep(R) pap test was screened with the use of an image guided system. Performed at: WBPerformed By: #### [id number] #### [facility] [address] [place] [address] Dr. Nitin DanielleNote:CommentOhioHealth Grant Medical Center on above:Result Comment: The Pap smear is a screening test designed to aid in the detection of premalignant and malignant conditions of the uterine cervix. It is not a diagnostic procedure and should not be used as the sole means of detecting cervical cancer. Both false-positive and false-negative reports do occur. . Performed at: WBPerformed By: #### [id number] #### [facility] [address] [place] [address] Dr. Nitin DaniellePerformed by:CommentOhioHealth Grant Medical Center on above: Result Comment: Muna Sellers, Ticket Broker (ASCP) Performed at: [facility] Centerformed By: #### [id number] #### [facility] [address] [place] [address] Dr. Nitin Leal adequacy:CommentOhioHealth Grant Medical Center on above:Result Comment: Satisfactory for evaluation. No endocervical component is identified. Performed at: BAPerformed By: #### [id number] #### [facility] [address] [place] [address] Dr. Nitin Lofton AUTO DIFFon 88-04-9450GFFC #0.0 103/ulNormal0.0-0.1[facility]ron GeneralComment on above:Performed By: #### DATCBC #### [facility] [address] [place] [address] Dr. Nitin DanielleBasophils/100 WBC (Bld)0.4 %Normal0.2-2.0[facility] Comment on above:Performed By: #### DATCBC #### [facility] [address] [place] [address] Dr. Nitin Garrett #0.1 103/ulNormal0.0-0.7The [facility] CompanyComment on above: Performed By: #### DATCBC #### [facility] [address] [place] [address] Dr. Nitin Trevinoosinophils/100 WBC (Bld)1.1 %Normal0.9-7.0[facility] Comment on above:Performed By: #### DATCBC #### [facility] [address] [place] [address] Dr. Nitin Trevinorythrocyte distribution width (RBC) [Ratio]13.2 %Nhcfjf75.0-15.0 [facility] GeneralComment on above:Performed By: #### DATCBC #### [facility] [address] [place] [address] Dr. Nitin DanielleHematocrit (Bld) [Volume fraction]43.0 %Dzdfvt98.0-48.0The [facility] CompanyComment on above:Performed By: #### DATCBC #### [facility] [address] [place] [address] Dr. Nitin DanielleHemoglobin (Bld) [Mass/Vol]14.5 g/tJDhqabv73.0-16.0The [facility] CompanyComment on above:Performed By: #### DATCBC #### [facility] [address] [place] [address] Dr. Nitin Pugh #0.02 10e3/ulNormal0.00-0.03The [facility] CompanyComment on above:Performed By: #### DATCBC #### [facility] [address] [place] [address] Dr. Nitin Pugh %0.3 %Normal0.0-0.5The [facility] CompanyComment on above: Performed By: #### DATCBC #### [facility] [address] [place] [address] Dr. Nitin Yan #2.3 103/ulNormal1.2-3.8The [facility] CompanyComment on above:Performed By: #### DATCBC #### [facility] [address] [place] [address] Dr. Nitin Liceamphocytes/100 WBC (Bld)32.3 %Lhudir64.5-60.0The [facility] CompanyComment on above:Performed By: #### DATCBC #### [facility] [address] [place] [address] Dr. Nitin Lemon (RBC) [Entitic mass]31.3 kcVgilhc36.7-34.0The [facility] CompanyComment on above:Performed By: #### DATCBC #### [facility] [address] [place] [address] Dr. Nitin Lemon (RBC) [Mass/Vol]33.7 g/yQGhjwep99.9-35.2The [facility] HospitalComment on above:Performed By: #### DATCBC #### [facility] [address] [place] [address] Dr. Nitin DanielleMCV (RBC) [Entitic vol]92.9 aCOfdedu11.0-99.0The [facility] Hospitalment on above:Performed By: #### DATCBC #### [facility] [address] [place] [address] Dr. Nitin Castillo #0.6 103/ulNormal0.3-0.8The [facility] CompanyComment on above:Performed By: #### DATCBC #### [facility] [address] [place] [address] Dr. Nitin Steinocytes/100 WBC (Bld)7.9 %Normal1.7-12.0The [facility] on above:Performed By: #### DATCBC #### [facility] [address] [place] [address] Dr. Nitin Gotti #4.1 103/ulNormal1.4-6.5The [facility] CompanyComment on above:Performed By: #### DATCBC #### [facility] [address] [place] [address] Dr. Nitin Garzautrophils/100 WBC (Bld)58.0 %Ohdgnp32.0-75.0The [facility] Hospitalment on above:Performed By: #### DATCBC #### [facility] [address] [place] [address] Dr. Nitin Bondlet mean volume (Bld) [Entitic vol]11.0 fLNormal9.5-13.5The [facility] Mary Hospitalment on above:Performed By: #### DATCBC #### [facility] [address] [place] [address] Dr. Nitin DaniellePLT236 103/yzHfsblu355-512Qsx [facility] CompanyComment on above: Performed By: #### DATCBC #### [facility] [address] [place] [address] Dr. Nitin DanielleRBC4.63 106/ulNormal4.20-5.40The Denise HospitalComment on above:Performed By: #### DATCBC #### [facility] [address] [address] [address] Nitin DanielleWBC7.1 103/ulNormal4.0-11.0The [facility] CompanyComment on above: Performed By: #### DATCBC #### [facility] [address] [place] [address] Dr. Nitin Gonzalez- BRYAN WITH LIPIDon 17-63-9030Hxqze gap [Moles/Vol]12.0 mmol/L NormalThe [facility] Hospital CompanyComment on above:Performed By: #### DATBMP #### [facility] [address] [place] [address] Dr. Nitin DanielleCalcium [Mass/Vol]8.9 mg/dLNormal8.5-10.1[facility] Comment on above:Performed By: #### DATBMP #### [facility] [address] [place] [address] Dr. Nitin DanielleChloride [Moles/Vol]103 mmol/YOyleni68-901Lyx [facility] Comment on above:Performed By: #### DATBMP #### [facility] [address] [place] [address] Dr. Nitin DanielleCholesterol [Mass/Vol]257 mg/dLCritically high<=200The [facility] CompanyComment on above:Performed By: #### DATBMP #### [facility] [address] [place] [address] Dr. Nitin DanielleCholesterol in HDL [Mass/Vol]44 mg/dJKxqbhd21-81Dot [facility] CompanyComment on above:Performed By: #### DATBMP #### [facility] [address] [place] [address] Dr. Nitin DanielleCholesterol in LDL [Mass/Vol]153.0 mg/dLNormalThe [facility] CompanyComment on above:Performed By: #### DATBMP #### [facility] [address] [place] [address] Dr. Nitin DanielleCO2 [Moles/Vol]29.1 mmol/LZkdkhe05.0-30.0The [facility] Comment on above:Performed By: #### DATBMP #### [facility] [address] [address] [address] Nitin DanielleCreatinine [Mass/Vol]0.66 mg/dLNormal0.52-1.04The [facility] CompanyComment on above:Performed By: #### DATBMP #### [facility] [address] [address] [address] Nitin TrevinoGFR-AF BANGLADESHI>60Normal>=60The [facility] CompanyComment on above:Performed By: #### DATBMP #### [facility] [address] [place] [address] Dr. Nitin TrevinoGFR-NON AF BANGLADESHI>60Normal>=60The [facility] CompanyComment on above:Performed By: #### DATBMP #### [facility] [address] [address] [address] Nitin DanielleGlucose [Mass/Vol]109 mg/dLCritically nsla50-772Dos [facility] CompanyComment on above:Performed By: #### DATBMP #### [facility] [address] [place] [address] Dr. Nitin DanielleHDJerman NORMAL> or = 60 mg/dl - LOW CARDIOVASCULAR RISK <40 mg/dl - HIGH CARDIOVASCULAR RISKBlanchard Valley Health System [facility] HospitalComment on above:Performed By: #### DATBMP #### [facility] [address] [address] [address] Nitin DanielleLDL CALC NORMALSEE BELOWBlanchard Valley Health System [facility]ard Valley HospitalComment on above:Result Comment: <100 mg/dl OPTIMAL 100 - 129 mg/dl NEAR OR ABOVE OPTIMAL 130 - 159 mg/dl BORDERLINE HIGH 160 - 189 mg/dl HIGH >190 mg/dl VERY HIGH Performed By: #### DATBMP #### [facility] [address] [place] [address] Dr. Nitin DaniellePotassium [Moles/Vol]4.1 mmol/LNormal3.4-5.0The [facility] Comment on above:Performed By: #### DATBMP #### [facility] [address] [address] [address] Nitin DanielleSodium [Moles/Vol]140 mmol/GFeuxkp434-810Yor [facility] Comment on above:Performed By: #### DATBMP #### [facility] [address] [address] [address] Nitin DanielleTriglyceride [Mass/Vol]300 mg/dLCritically high<=150The [facility] CompanyComment on above:Performed By: #### DATBMP #### [facility] [address] [address] [address] Nitin DanielleUrea nitrogen [Mass/Vol]14.0 mg/dLNormal7.0-18.0The [facility] CompanyComment on above:Performed By: #### DATBMP #### [facility] [address] [address] [address] Nitin Hernandez nitrogen/Creatinine [Mass ratio]21.2 mg/mgNoSamaritan HospitalComment on above:Performed By: #### DATBMP #### [facility] [address] [address] [address] Nitin DanielleVLDL CALC60.0 mg/dLNoSamaritan HospitalComment on above: Performed By: #### DATBMP #### [facility] [address] [place] [address] Dr. Nitin DanielleCYTOLOGYon 58-49-6622RNWGRUKCRgkjjzhn #: [id number] Physician: JUDIE GARCIAPECDAY SUBMITTEDA: CERVICAL, SCREENING, FLUID FINAL DIAGNOSISA. CERVICAL, SCREENING, FLUIDSatisfactory for interpretation.No endocervical component.Negative for intraepithelial lesion or malignancy.This specimen has been analyzed by the [employer] System, anautomated imaging and review system, which assists the laboratory inevaluating cells on ThinPrep Pap tests. Following automated imaging,selected young from every slide are reviewed by a ribbing machine operator.FAMILIA Modi(ASCP) (Electronic Signature) CLINICAL DATA PAP Source: Cervical-PFCERSMenstrual History:Post-MenopausalHYSTERECTOMY: subtot al, 04/18Clinical History:ROUTINESTAINSA: CERVICAL, SCREENING, FLUID THIN PREP GYNJennifer Juan Hanks, Laboratory DirectorPatient ID #: [id number] of Report: 03/30/2017Date of Procedure: 03/26/2017Date of Receipt: 03/27/2017Submitted by: JUDIE ARCOSLocation: Diagnostic interpretation performed [facility], [address] [place] [address].The Pap Smear is a screening test for cervicalcancer. False negativeresults occur with all screening tests, emphasizing the need forrescreening at recommended intervals, and clinical correlation.NormalFayette County Memorial Hospital Reference LabComment on above:Performed By: #### C ####See report for performing lab information. Vital Signs Date TimeVital SignValuePerforming JcasqtnsmCrsentwl04-36-9333 12:00-0500Body heightAlberlukas Valadezdiff Other [facility] [employer] Other 11-10-2022 12:00-0500Body mass index (BMI) [Ratio]34.6 kg/i4HfzdbuTex Argueta Other [facility] [employer] Other 11-10-2022 12:00-0500Body faksvs76.82 kgTex Argueta Other [facility] Other 11-10-2022 12:00-0500Diastolic blood mm[Hg] Tex Valadezdiff Other no[employer] Other 11-10-2022 12:00-0500Respiratory rate18 /minDro Argueta Other [employer] Other 11-10-2022 12:00-8224HcU1% (BldA) [Mass fraction]99 % Tex Valadezdiff Other noInstantMarketing Tabber Other 11-10-2022 12:00-0500Systolic blood ouozvvsu632 mm[Hg] Tex Valadezdiff Other [employer] Other 11-09-2022 15:48-0500Blood Pressure LocationMichael NILL [facility] Ecdrtxgf72-61-3455 15:48-0500Diastolic blood timvpfsg53 mm[Hg]Jud NILL [facility] Ewcgjdij76-15-7081 15:48-0500Heart rate 80 /minMichael NILL General Surgery Wwiogclr58-13-0010 15:48-0500 Respiratory rate16 /minMichael NILL General Surgery Szjfrubx66-[birth year]-1945 15:48-0500Systolic blood sjlybktv864 mm[Hg]Jud NILL General [facility] [place] Encounters Encounter DateEncounter TypeCare ProviderFacilityStart: 69-39-4170xcmovedglc TRIPP A LEHMANNFacility:[facility] [place]Start: 05-08-2025 End: 00-45-1836uybacvjgbmSWYDWT A LEHMANNFacility:[facility] [place]Start: 05-01-2025 End: 33-67-7127anwcpdlxifXOGCJG A LEHMANNFacility:[facility] [place]vueStart: 12-30-2024 End: 59-91-6226nwprfvlohqNckmfc E. RossFacility:[facility] DenvilleueStart: 09-08-2024 End: 74-22-8496zyksnihjblDzkapr E. RossFacility:[facility]villeueStart: 09-01-2022 Encounter for preprocedural laboratory examinationDR JUD DUGGANann-marie [facility] HospitalStart: 08-30-2022 End: 33-14-9345fgqczzpkaxVU JUD MONTEIROFacility:S7Vorya: 08-28-2022 End: 68-37-7764owpgajbispBT JUD MONTEIROFacility:E8Hjotb: 08-28-2022 End: 05-57-6058Vqjokuueq for preprocedural laboratory examinationDR JUD YANAJerman Facility:Q6Qlzcm: 07-13-2022 End: 04-83-6548vttbiwfhhiAkqTeri Aparicio Tabber Other Start: 89-38-0394Sjdigdiox Boni Valadezdiff [facility] ClinicStart: 07-12-2022 End: 62-78-9965Edtzjhp encounter procedureMichael R NILL General Surgery Nill/Said [place] Start: 06-20-2022 End: 13-06-7194zuecryzluyGS JUDIE ARCOSFacility:K1Bttmy: 06-07-2022 End: 99-41-2191xxndjntvjoPY DAMEON RUSSFacility:R3Fhjqp: 11-18-2021 End: 16-55-9006sgqmneqycaTZ NONE LISTED REQUESTFacility:H1 Procedures DateProcedureProcedure DetailPerforming ClinicianVaginal hysterectomyMichael NILL Payers DatePayer CategoryPayerPolicy [id number] 2.840.1.295460.3.57[id number] 2.16.840.1.206601.3.57[id number] 2.840.1.987371.3.57[id number] 2.840.1.707277.3.57[id number] 2.0.1.356850.3.57[id number] 2.0.1.641389.3.57[id number] 2.0.1.233504.3.57[id number] 2.0.1.738798.3.57[id number] 2..1.727967.3.579.2.18496-39-9296Ipjl-[id number] [id number] [id number] 2..1.262781.3.579.2.593 [id number] 2..1.489271.3.579.2.531 Social History DateTypeDetailFacilityStart: 17-90-1292Ymkgkkh smoking statusNever smoked tobacco (finding)General Surgery BellevueTobacco smoking statusNeverGeneral Surgery [place]vueSex Assigned At [facility] Hospitaltart: 88-18-5310Tdf Assigned At [facility] Functional Status HdvdSxifspoyfpYmowwcMujchtzv34-07-2752Knlqeefeca StatusN/AGesidney & lois [facility] [place] Clinical Note 05-08-2025 Note Date & FmvxHiowVqkscsrl60-43-4776 NotePatient Education Nutrition Fat and Cholesterol Restricted Eating Plan Getting too much fat and cholesterol in your diet may cause health problems. Choosing the right foods helps keep your fat and cholesterol at normal levels. This can keep you from getting certain diseases. Your doctor may recommend an eating plan that includes: ??? Total fat: % or less of total calories a day. This is g of fat a day. ??? Saturated fat: % or less of total calories a day. This is g of saturated fat a day. ??? Cholesterol: less than mg a day. ??? Fiber: g a day. What are tips for following this plan? General tips ??? Work with your doctor to lose weight if you need to. ??? Avoid: ? Foods with added sugar. ? Fried foods. ? Foods with trans fat or partially hydrogenated oils. This includes some margarines and baked goods. ??? If you drink alcohol: ? Limit how much you have to: ? 0?1 drink a day for women who are not . ? 0?2 drinks a day for men. ? Know how much alcohol is in a drink. In the [place] one drink equals one 12 oz bottle of beer (355 mL), one 5 oz glass of wine (148 mL), or one 1? oz glass of hard liquor (44 mL). Reading food labels ??? Check food labels for: ? Trans fats. ? Partially hydrogenated oils. ? Saturated fat (g) in each serving. ? Cholesterol (mg) in each serving. ? Fiber (g) in each serving. ??? Choose foods with healthy fats, such as: ? Monounsaturated fats and polyunsaturated fats. These include olive and canola oil, flaxseeds, walnuts, almonds, and seeds. ? [place]-3 fats. These are found in certain fish, flaxseed oil, and ground flaxseeds. ??? Choose grain products that have whole grains. Look for the word whole as the first word in the ingredient list. Cooking ??? Cook foods using low-fat methods. These include baking, boiling, grilling, and broiling. ??? Eat more home-cooked foods. Eat at restaurants and buffets less often. Eat less fast food. ??? Avoid cooking using saturated fats, such as butter, cream, palm oil, palm kernel oil, and coconut oil. Meal planning ??? At meals, divide your plate into four equal parts: ? Fill one-half of your plate with vegetables, green salads, and fruit. ? Fill one-fourth of your plate with whole grains. ? Fill one-fourth of your plate with low-fat (lean) protein foods. ??? Eat fish that is high in omega-3 fats at least two times a week. This includes mackerel, tuna, sardines, and salmon. ??? Eat foods that are high in fiber, such as whole grains, beans, apples, pears, berries, broccoli, carrots, peas, and barley. What foods should I eat? Fruits All fresh, canned (in natural juice), or frozen fruits. Vegetables Fresh or frozen vegetables (raw, steamed, roasted, or grilled). Green salads. Grains Whole grains, such as whole wheat or whole grain breads, crackers, cereals, and pasta. Unsweetened oatmeal, bulgur, barley, quinoa, or brown rice. Congers or whole wheat flour tortillas. Meats and other protein foods Ground beef (85% or leaner), grass-fed beef, or beef trimmed of fat. Skinless chicken or turkey. Ground chicken or turkey. Pork trimmed of fat. All fish and seafood. Egg whites. Dried beans, peas, orlentils. Unsalted nuts or seeds. Unsalted canned beans. Nut butters without added sugar or oil. Dairy Low-fat or nonfat dairy products, such as skim or 1% milk, 2% or reduced-fat cheeses, low-fat and fat-free ricotta or cottage cheese, or plain low-fat and nonfat yogurt. Fats and oils Tub margarine without trans fats. Light or reduced-fat mayonnaise and salad dressings. Avocado. [place], canola, sesame, or safflower oils. The items listed above may not be a complete list of foods and beverages you can eat. Contact a dietitian for more information. What foods should I avoid? Fruits Canned fruit in heavy syrup. Fruit in cream or butter sauce. Fried fruit. Vegetables Vegetables cooked in cheese, cream, or butter sauce. Fried vegetables. Grains White bread. White pasta. White rice. Cornbread. Bagels, pastries, and croissants. Crackers and snack foods that contain trans fat and hydrogenated oils. Meats and other protein foods Fatty cuts of meat. Ribs, chicken wings, underwood, sausage, bologna, salami, chitterlings, fatback, hot dogs, bratwurst, and packaged lunch meats. Liver and organ meats. Whole eggs and egg yolks. Chicken and turkey with skin. Fried meat. Dairy Whole or 2% milk, cream, [id number], and cream cheese. Whole milk cheeses. Whole-fat or sweetened yogurt. Full-fat cheeses. Nondairy creamers and whipped toppings. Processed cheese, cheese spreads, and cheese curds. Fats and oils Butter, stick margarine, lard, shortening, ghee, or underwood fat. Coconut, palm kernel, and palm oils. Beverages Alcohol. Sugar-sweetened drinks such as sodas, lemonade, and fruit drinks. Sweets and desserts Congers syrup, sugars, honey, and molasses. Candy. Jam and jelly (more content not included)...[facility] Clinical Note 05-01-2025 Note Date & [id number] NotePatient Education Physical Medicine and Rehabilitation Exercising to Lose Weight Getting regular exercise is important for everyone. It is especially important if you are overweight. Being overweight increases your risk of heart disease, stroke, diabetes, high blood pressure, andseveral types of cancer. Exercising, and reducing the calories you consume, can help you lose weight and improve fitness and health. Exercise can be moderate or vigorous intensity. To lose weight, most people need to do a certain amount of moderate or vigorous-intensity exercise each week. How can exercise affect me? You lose weight when you exercise enough to burn more calories than you eat. Exercise also reduces body fat and builds muscle. The more muscle you have, the more calories you burn. Exercise also: ??? Improves mood. ??? Reduces stress and tension. ??? Improves your overall fitness, flexibility, and endurance. ??? Increases bone strength. Moderate-intensity exercise Moderate-intensity exercise is any activity that gets you moving enough to burn at least three times more energy (calories) than if you were sitting. Examples of moderate exercise include: ??? Walking a mile in 15 minutes. ??? Doing light yard work. ??? Biking at an easy pace. Most people should get at least 150 minutes of moderate-intensity exercise a week to maintain theirbody weight. Vigorous-intensity exercise Vigorous-intensity exercise is any activity that gets you moving enough to burn at least six times more calories than if you were sitting. When you exercise at this intensity, you should be working hard enough that you are not able to carry on a conversation. Examples of vigorous exercise include: ??? Running. ??? Playing a team sport, such as football, basketball, and soccer. ??? Jumping rope. Most people should get at least 75 minutes a week of vigorous exercise to maintain their body weight. What actions can I take to lose weight? The amount of exercise you need to lose weight depends on: ??? Your age. ??? The type of exercise. ??? Any health conditions you have. ??? Your overall physical ability. Talk to your health care provider about how much exercise you need and what types of activities aresafe for you. Nutrition ??? Make changes to your diet as told by your health care provider or diet and holistic nutritionist(dietitian). This may include: ? Eating fewer calories. ? Eating more protein. ? Eating less unhealthy fats. ? Eating a diet that includes fresh fruits and vegetables, whole grains, low-fat dairy products, and lean protein. ? Avoiding foods with added fat, salt, and sugar. ??? Drink plenty of water while you exercise to prevent dehydration or heat stroke. Activity ??? Choose an activity that you enjoy and set realistic goals. Your health care provider can help you make an exercise plan that works for you. ??? Exercise at a moderate or vigorous intensity most days of the week. ? The intensity of exercise may vary from person to person. You can tell how intense a workout is for you by paying attention to your breathing and heartbeat. Most people will notice their breathing and heartbeat get faster with more intense exercise. ??? Do resistance training twice each week, such as: ? Push-ups. ? Sit-ups. ? Lifting weights. ? Using resistance bands. ??? Getting short amounts of exercise can be just as helpful as long, structured periods of exercise. If you have trouble finding time to exercise, try doing these things as part of your daily routine: ? Get up, stretch, and walk around every 30 minutes throughout the day. ? Go for a walk during your lunch break. ? Park your car farther away from your destination. ? If you take public transportation, get off one stop early and walk the rest of the way. ? Make phone calls while standing up and walking around. ? Take the stairs instead of elevators or escalators. ??? Wear comfortable clothes and shoes with good support. ??? Do not exercise so much that you hurt yourself, feel dizzy, or get very short of breath. Where to find more information ??? [place] Department of Health and Human Services: www.hhs.gov ??? Centers for Disease Control and Prevention: www.cdc.gov Contact a health care provider: ??? Before starting a new exercise program. ??? If you have questions or concerns about your weight. ??? If you have a medical problem that keeps you from exercising. Get help right away if: ??? You have any of the following while exercising: ? Injury. ? Dizziness. ? Difficulty breathing or shortness of breath that does not go away when you stop exercising. ? Chest pain. ? Rapid heartbeat. These symptoms may represent a serious problem that is an emergency. Do not wait to see if the symptoms will go away. Get medical help right away. Call your local emergency services (911 in the [place] Do not (more content not included)...[facility] Clinical Note 09-08-2024 Note Date & [id number] NotePatient Education Nutrition BMI for Adults Body mass index (BMI) is a number found using a person's weight and height. BMI can help tell how much of a person's weight is made up of fat. BMI does not measure body fat directly. It is used instead of tests that directly measure body fat, which can be difficult and expensive. What are BMI measurements used for? BMI is useful to: ??? Find out if your weight puts you at higher risk for medical problems. ??? Help recommend changes, such as in diet and exercise. This can help you reach a healthy weight.BMI screening can be done again to see if these changes are working. How is BMI calculated? Your height and weight are measured. The BMI is found from those numbers. This can be done with [place] or metric measurements. Note that charts and online BMI calculators are available to help you findyour BMI quickly and easily without doing these calculations. To calculate your BMI in [place] measurements: 1. Measure your weight in pounds (lb). 2. Multiply the number of pounds by 703. ??? So, for an adult who weighs 150 lb, multiply that number by 703: 150 x 703, which equals 105,450. 3. Measure your height in inches. Then multiply that number by itself to get a measurement called inches squared. ??? So, for an adult who is 70 inches tall, the inches squared measurement is 70 inches x 70 inches, which equals 4,900 inches squared. 4. Divide the total from step 2 (number of lb x 703) by the total from step 3 (inches squared): 105,450 ? 4,900 = 21.5. This is your BMI. To calculate your BMI in metric measurements: 1. Measure your weight in kilograms (kg). ??? For this example, the weight is 70 kg. 2. Measure your height in meters (m). Then multiply that number by itself to get a measurement called meters squared. ??? So, for an adult who is 1.75 m tall, the meters squared measurement is 1.75 m x 1.75 m, whichequals 3.1 meters squared. 3. Divide the number of kilograms (your weight) by the meters squared number. In this example: 70 ?3.1 = 22.6. This is your BMI. What do the results mean? BMI charts are used to see if you are underweight, normal weight, overweight, or obese. The following guidelines will be used: ??? Underweight: BMI less than 18.5. ??? Normal weight: BMI between 18.5 and 24.9. ??? Overweight: BMI between 25 and 29.9. ??? Obese: BMI of 30 or above. BMI is a tool and cannot diagnose a condition. Talk with your health care provider about what your BMI means for you. Keep these notes in mind: ??? Weight includes fat and muscle. Someone with a muscular build, such as an athlete, may have a BMI that is higher than 24.9. In cases like these, BMI is not a correct measure of body fat. ??? If you have a BMI of 25 or higher, your provider may need to do more testing to find out if excess body fat is the cause. ??? BMI is measured the same way for males and females. Females usually have more body fat than males of the same height and weight. Where to find more information For more information about BMI, including tools to quickly find your BMI, go to: ??? Centers for Disease Control and Prevention: cdc.gov ??? [place] [employer]: heart.org ??? National Heart, Lung, and Blood [place]: nhlbi.nih.gov This information is not intended to replace advice given to you by your health care provider. Make sure you discuss any questions you have with your health care provider. Document Revised: 05/10/2023 Document Reviewed: 05/03/2023 [employer] Patient Education ? 2023 [employer].[facility] Clinical Note 08-30-2022 Note Date & [id number] NoteOPERATIVE NOTE OPERATION DATE: 08/30/2022 PREOPERATIVE DIAGNOSIS: Colorectal [...] be in 10 years. CC: Patient's family physician.[facility] Evaluation note 07-13-2022 Note Date & [id number] Evaluation note* Encounter Date Diagnosis Assessment Notes Treatment Notes Treatment Clinical Notes Jul, Prediabetes (ICD-10 - R73.09) Jul,bnormal weight gain (ICD-10 - R63.5) Jul,Hypertension (ICD-10 - I10) Jul,Mixed hyperlipidemia (ICD-10 - E78.2) Jul,Metabolic syndrome X (ICD-10 - E88.81) Jul,besity (BMI 30.0-34.9) (ICD-10 - E66.9) [facility] Other Evaluation + Plan note Note Date & TypeNoteFacilityEvaluation + Plan note No data available for this section General Surgery [place] Evaluation note Note Date & TypeNoteFacilityEvaluation noteNo assessment information available [facility] Work Phone: History general Narrative - Reported Note Date & TypeNoteFacilityHistory general Narrative - Reported* Type Description Date Medical History HTN Medical HistoryHysterectomySurgical [id number] Historysee above [facility] Discharge instructions Note Date & TypeNoteFacilityHospital Discharge instructions No data available for this section General Surgery [place] Progress note Note Date & TypeNoteFacilityProgress note No data available for this section General Surgery [place] Summary Purpose Family History No Family History [...] section and content) DATE CREATED AUTHOR 02/27/2018 [facility] DATE CREATED AUTHOR AUTHOR'S ORGANIZ ATION 09/01/2022 [facility] DATE CREATED AUTHOR AUTHOR'S ORGANIZ ATION 01/10/2023 [facility] DATE CREATED AUTHOR AUTHOR'S ORGANIZ ATION 05/02/2025 [facility] DATE CREATED AUTHOR AUTHOR'S ORGANIZ ATION 05/03/2025 [facility] DATE CREATED AUTHOR AUTHOR'S ORGANIZ ATION 05/16/2025 [facility] Patient Care team informatio n (unrecognized section and content) Personnel Name: JUDIE ARCOS MD Address: Address: [address] [place] [phone] REASON FOR VISIT (unrecogniz ed section and [...] BE BASED ON THE PRIMARY CLINICAL RECORDS. [facility] [employer] [facility]. provides no warranty or guarantee of the accuracy or completeness of information in this document.
== END 2025-07-01 07:15 | disposition home or self-care (01) ==
LOC: MAMMO 07:14
PROVIDERS: PCP Nurse Practitioner; Visit Provider Nurse Practitioner
DX: Z12.31 Encounter for screening mammogram for malignant neoplasm of breast (principal); Z80.3 Family history of malignant neoplasm of breast
CPT/HCPCS: 77063; 77067